=== PATIENT | female | born 1950 | race Caucasian/White ===

== ENCOUNTER 2018-11-26 14:00 | Outpatient (RCR) | payer MEDICARE, OTHER ==
[~2018-11-26 14:00] MED LIST: ACTIGALL300 MG PO; ACTONEL5 MG PO; ALDACTONE50 MG PO; AMLODIPINE BESY10 MG PO; CALCIO DEL MAR500 MG PO; CALCIUM + VITA1 EACH PO; CALCIUM500 MG PO; CARAFATE1 GM PO; DEXILANT60 MG PO; FERROUS SULFAT325 M1 PO; HYDROCORTISONE10 MG PO; KRISTALOSE10 GM PO; LEVOTHYROX200 MCG/VI PO; LEVOTHYROXINE125 MCG PO; LOVAZA1 GM PO; LUNESTA3 MG PO; NEURONTIN300 MG PO; PANTOPRAZOLE SO40 MG PO; POTASSIUM CHLO10 ME1 PO; PREDNISONE2.5 MG PO; PROAIR HFA INH8.5 GM; PROGRAF1 MG PO; PROPRANOLOL HCL10 MG PO; PROPRANOLOL HCL20 MG PO; TORSEMIDE10 MG PO; ULTRAM50 MG PO; URSODIOL300 MG PO; VITAMIN D2; XIFAXAN550 MG PO
== END 2018-11-28 ==
LOC: PT 14:00
PROVIDERS: ATTEND Orthopaedic Surgery
DX: M25.511 Pain in right shoulder (principal); M25.611 Stiffness of right shoulder, not elsewhere classified; M54.2 Cervicalgia; M62.81 Muscle weakness (generalized)

== ENCOUNTER 2018-12-08 14:00 | Outpatient (RCR) | payer MEDICARE, OTHER | END 2018-12-28 | LOC: PT 14:00 | PROVIDERS: ATTEND Orthopaedic Surgery | DX: M25.511 Pain in right shoulder (principal); M25.611 Stiffness of right shoulder, not elsewhere classified; M54.2 Cervicalgia; M62.81 Muscle weakness (generalized) ==

== ENCOUNTER 2019-02-27 09:50 | Outpatient (RCR) | payer MEDICARE, OTHER | END 2019-02-28 | LOC: PT 09:50 | PROVIDERS: ATTEND Orthopaedic Surgery | DX: S43.431A Superior glenoid labrum lesion of right shoulder, initial encounter (principal); M75.111 Incomplete rotator cuff tear or rupture of right shoulder, not specified as traumatic; M62.81 Muscle weakness (generalized); M25.511 Pain in right shoulder; M25.611 Stiffness of right shoulder, not elsewhere classified ==

== ENCOUNTER 2019-03-27 09:58 | Outpatient (RCR) | payer MEDICARE, OTHER | END 2019-03-30 | LOC: PT 09:58 | PROVIDERS: ATTEND Orthopaedic Surgery | DX: M25.511 Pain in right shoulder (principal); M25.611 Stiffness of right shoulder, not elsewhere classified; M62.81 Muscle weakness (generalized); M75.111 Incomplete rotator cuff tear or rupture of right shoulder, not specified as traumatic; S43.431A Superior glenoid labrum lesion of right shoulder, initial encounter | CPT/HCPCS: 97139 ==

== ENCOUNTER 2019-04-02 10:00 | Outpatient (RCR) | payer MEDICARE, OTHER | END 2019-04-30 | LOC: PT 10:00 | PROVIDERS: ATTEND Orthopaedic Surgery | DX: S43.431A Superior glenoid labrum lesion of right shoulder, initial encounter (principal); M62.81 Muscle weakness (generalized); M25.511 Pain in right shoulder; M25.611 Stiffness of right shoulder, not elsewhere classified ==

== ENCOUNTER 2019-04-03 08:32 | Emergency (ER) | payer MEDICARE, OTHER ==
[~2019-04-03] VITALS: Ht 165.1 cm; Wt 72.6 kg
--- OUTSIDE RECORDS SUMMARY | 2019-04-03 08:40 | XMS REPORT ---
Author Author [facility] Address Unknown Phone Unavailable Care Team Providers Care Property Clerk Name Role Phone DEBORAH TRAVIS Unavailable Unavailable EMELI HILL Unavailable Unavailable AMARATUNGE, CHAMINDIKA HARSHINIE Unavailable Unavailable JIMMELY JAROCHO Unavailable Unavailable JALAL, MCCALLUM PRASUN Unavailable Unavailable MIKAEL, ARIF Unavailable Unavailable JOHN FRANKLIN Unavailable Unavailable DILON RUEDA Unavailable Unavailable DEMETRIO GOLDSMITH Unavailable Unavailable MARYELLEN GODFREY Unavailable Unavailable FRANNIE GAN Unavailable Unavailable CROW SNOW Unavailable Unavailable Payers Payer Name Policy Type Policy Number Effective Date Expiration Date Problems This patient has no known problems. Allergies, Adverse Reactions, Alerts Allergy Name Allergy Type Status Severity Reaction(s) Onset Date Inactive Date Treating Clinician Comments codeine DA Active U 2019-02-06 00:00:00 aspirin DA Active SV 2019-02-06 00:00:00 codeine DA Active U 2012-05-27 00:00:00 aspirin DA Active SV 2012-05-27 00:00:00 Medications This patient has no known medications. Results Test Description Test Time Test Comments Text Results Atomic Results Result Comments - XR CHEST 2 V 2019-02-06 07:50:00 FAX: Berenice Mccall [phone] [place]ora: St: REG FAX: Roxi Rivas [phone] FAX: Kimberly Bynum Name: KERI [facility] [place] : 1950 Age/S: 68/F [address] [place] [address] Unit #: [id number] Loc: [place] [address] Phys: Kimberly Bynum NP Acct: [id number] Dis Date: Status: [place] [facility] [place] [facility] [place]ONE #: [phone] Exam Date: 02/06/2019733 FAX #: [phone] Reason: PRE-OP SHOULDER ARTHROSCOPY EXAMS: CPT CODE: [id number] XR CHEST 2 V 17480 CHEST RADIOGRAPHS - PA AND LATERAL: COMPARISON: May 27, 2012 CLINICAL HISTORY: PRE-OP SHOULDER ARTHROSCOPY The cardiopericardial silhouette is within normal limits. No acute infiltrates are seen. Calcified granuloma noted in the left midlung. There is a probable small retrocardiac hiatal hernia. No vascular congestion or pneumothorax. IMPRESSION: No acute pulmonary abnormality. Suspect small hiatal hernia. at 0750 Reported and signed by: Trip Pete M.D. CC: Berenice Diaz MD; Roxi Frazier; Kimberly Bynum NP Technologist: RT Roshni(R) Trnscrd Date/Time/By: 02/06/2019 (0750) : By: [email or web address] Orig Print D/T: S: 02/06/2019 (0753) PAGE 1 Signed Report BASIC METABOLIC PANEL 2019-02-06 07:48:00 SODIUM (test code=NA) 139 mEq/L 134-147 POTASSIUM (test code=K) 4.2 mEq/L 3.4-5.0 CHLORIDE (test code=CL) 106 mEq/L 100-108 CARBON DIOXIDE (test code=CO2) 25 mEq/L 21-33 ANION GAP (test code=GAP) 12 0-20 GLUCOSE (test code=GLU) 96 mg/dL 70-110 BLOOD UREA NITROGEN (test code=BUN) 29 mg/dL 7-18 GLOMERULAR FILTRATION RATE (test code=GFR) 34.3 70-80 Units of measure=ml/min/1.73 m2 CREATININE (test code=CREAT) 1.5 mg/dL 0.6-1.3 CALCIUM (test code=CA) 9.2 mg/dL 8.0-10.5 CBC W/AUTO [id number] 07:33:00* Test Item Value Reference Range Comments WHITE BLOOD CELL (test code=WBC) 5.23 x10 3/uL 4.5-11.0 RED BLOOD CELL (test code=RBC) 4.27 x10 6/uL 3.54-5.02 HEMOGLOBIN (test code=HGB) 13.1 g/dL 11.0-15.0 HEMATOCRIT (test code=HCT) 39.6 % 33.0-45.0 MEAN CELL VOLUME (test code=MCV) 92.7 fL 81.0-99.0 MEAN CELL HGB (test code=MCH) 30.7 pg 27.0-33.0 MEAN CELL HGB CONCETRATION (test code=MCHC) 33.1 g/dL 33.0-37.0 RED CELL DISTRIBUTION WIDTH CV (test code=RDW) 12.8 % 11.5-14.5 RED CELL DISTRIBUTION WIDTH SD (test code=RDW-SD) 43.2 fL 37.0-54.0 PLATELET COUNT (test code=PLT) 162 x10 3/uL 150-400 MEAN PLATELET VOLUME (test code=MPV) 10.2 fL 7.0-9.0 NEUTROPHIL % (test code=NT%) 59.4 % 56.0-77.0 IMMATURE GRANULOCYTE % (test code=IG%) 0.4 % 0.0-2.0 LYMPHOCYTE % (test code=LY%) 15.5 % 14.0-32.0 MONOCYTE % (test code=MO%) 11.5 % 4.8-9.0 EOSINOPHIL % (test code=EO%) 12.2 % 0.3-3.7 BASOPHIL % (test code=BA%) 1.0 % 0.0-2.0 NUCLEATED RBC % (test code=NRBC%) 0.0 % 0-0 NEUTROPHIL # (test code=NT#) 3.11 x10 3/uL 2.0-7.6 IMMATURE GRANULOCYTE # (test code=IG#) 0.02 x10 3/uL 0.00-0.03 LYMPHOCYTE # (test code=LY#) 0.81 x10 3/uL 1.0-3.8 MONOCYTE # (test code=MO#) 0.60 x10 3/uL 0.1-0.8 EOSINOPHIL # (test code=EO#) 0.64 x10 3/uL 0.0-0.2 BASOPHIL # (test code=BA#) 0.05 x10 3/uL 0.0-0.2 NUCLEATED RBC # (test code=NRBC#) 0.00 x10 3/uL 0.0-0.1 MANUAL DIFF REQUIRED (test code=MDIFF) NO U/S, ABDOMINAL, WITH [id number] 16:15:00Doppler Study to evaluate Hepatic vesselsDoppler study to evaluate hepatic vessels; HCC surveillanceReason for Exam:->post OLT; evaluate hepatic vessels ;HCC surveillanceFINAL REPORT TECHNIQUE: Grayscale ultrasound of the abdomen with color Doppler and spectral Doppler ultrasound of the portal/hepatic vasculature. INDICATION: 68-year-old woman status post liver transplant. COMPARISON: Abdomen and pelvis CT 06/01/2018, abdomen ultrasound 11/09/2017. FINDINGS: LIVER: Prior orthotopic liver transplantation. The liver is normal in size and echogenicity with smooth contour. No focal liver lesions. HEPATIC VASCULATURE: Main portal vein measures 1 cm in diameter. Portal veins are patent with normal waveform and directionality. Flow velocity in the main portal vein is within normal limits. The proper and left hepatic arteries are patent with normal flow velocities, resistive indices, and waveforms. The right hepatic artery is not clearly visu alized. The hepatic veins and confluence are patent. BILIARY:Gallbladder: Prior cholecystectomy.Common bile duct measures 0.4 cm, within normal limits. No intra hepatic biliary ductal dilatation. PANCREAS: The pancreas is not clearly visuali zed due to overlying bowel gas. SPLEEN: No splenomegaly. PERITONEUM: No free flu id. KIDNEYS: The right kidney measures 8.4 cm in length. The left kidney measure s approximately 7.6 cm in length. No hydronephrosis. Extrarenal pelvis on the ri ght. No sonographically evident solid mass lesion. MIDLINE VASCULATURE: The visu alized inferior vena cava is patent. The maximum visualized aortic diameter is 0 .1 cm. Splenic artery and vein are patent. IMPRESSION:Unremarkable appearance of the transplant liver. The right hepatic artery is not clearly visualized. Oth erwise, unremarkable Doppler evaluation. Signed: Kenny Layort Verifi ed Date/Time: 01/05/2019 16:15:39 Reading Location: [address] Radiology [place] Room 04 :15 PM RAD, CHEST, 2 [id number] 13:33:00PA and Lateral for Liver TransplantReason for Exam:->Annual post OLT; HCC surveillanceFINAL REPORT TECHNIQUE: Frontal and lateral views of the chest. INDICATION: 68-year-old woman with hepatocellular carcinoma status post liver transplant. COMPARISON: Chest radiographs 06/01/2018 and 09/16/2017. FINDINGS: LINES/TUBES: None. LUNGS: New hazy airspace opacities in the right mid and lower lung zones. Unchanged subcentimeter calcified granuloma in the left lower lobe. PLEURA: No pleural effusion or pneumothorax. HEART AND MEDIASTINUM: The card iomediastinal silhouette is within normal limits. SOFT TISSUES AND BONES: Degene rative changes of the visualized spine. Unchanged clip in the medial left upper quadrant. IMPRESSION:New airspace opacities in the right mid and lower lung zon es may represent pneumonia. RECOMMENDATION:Follow-up chest radiographs may be ob tained in 6-8 weeks to reassess the above findings. Signed: Kenny Lay port Verified Date/Time: 01/05/2019 13:33:13 Reading Location: [address] Ra diology Reading Room Electronically signed by: KENNY LAY MD on 01:33 PM TACROLIMUS [id number] 12:07:00* Test Item Value Reference Range Comments TACROLIMUS BLOOD (Flubit LimitedAKER) (test dnnt=026) 3.2 ng/mL 10.0-20.0 HEPATITIS C [id number] 09:39:00* Test Item Value Reference Range Comments HEPATITIS C ANTIBODY (BEAKER) (test obrv=833) Nonreactive Nonreactive [id number] 09:18:00* Test Item Value Reference Range Comments PHOSPHORUS (BEAKER) (test brqf=676) 4.1 mg/dL 2.3-4.7 [id number] 09:18:00* Test Item Value Reference Range Comments MAGNESIUM (BEAKER) (test aarv=748) 1.9 mg/dL 1.6-2.6 COMPREHENSIVE METABOLIC [id number] 09:18:00* Test Item Value Reference Range Comments TOTAL PROTEIN (BEAKER) (test ppaj=812) 7.2 gm/dL 6.0-8.3 ALBUMIN (BEAKER) (test jdvg=3872) 4.2 g/dL 3.5-5.0 ALKALINE PHOSPHATASE (BEAKER) (test irdt=244) 104 U/L 40-150 BILIRUBIN TOTAL (BEAKER) (test feme=945) 0.8 mg/dL 0.2-1.2 SODIUM (BEAKER) (test ymdm=932) 139 meq/L 136-145 POTASSIUM (BEAKER) (test lmtc=734) 4.3 meq/L 3.5-5.1 CHLORIDE (BEAKER) (test dscf=023) 103 meq/L 98-107 CO2 (BEAKER) (test uztx=616) 26 meq/L 22-29 BLOOD UREA NITROGEN (BEAKER) (test btxu=778) 23 mg/dL 7-21 CREATININE (BEAKER) (test wkau=707) 1.49 mg/dL 0.57-1.25 GLUCOSE RANDOM (BEAKER) (test ohxr=960) 96 mg/dL 70-105 CALCIUM (BEAKER) (test zyyq=609) 9.7 mg/dL 8.4-10.2 AST (SGOT) (BEAKER) (test czbx=809) 16 U/L 5-34 ALT (SGPT) (BEAKER) (test ybsl=606) 14 U/L 6-55 EGFR (BEAKER) (test zndv=2602) 35 mL/min/1.73 sq m ESTIMATED GFR IS NOT ACCURATE CREATININE CLEARANCE IN PREDICTING GLOMERULAR FILTRATION RATE. ESTIMATED GFR IS NOT APPLICABLE FOR DIALYSIS PATIENTS. LIPID [id number] 09:18:00* Test Item Value Reference Range Comments TRIGLYCERIDES (BEAKER) (test bgpf=824) 94 mg/dL CHOLESTEROL (BEAKER) (test poaz=722) 176 mg/dL HDL CHOLESTEROL (BEAKER) (test myjq=940) 53 mg/dL LDL CHOLESTEROL CALCULATED (BEAKER) (test voed=127) 104 mg/dL Triglyceride Reference Range: Low Risk <150 Borderline 150-199 High Risk 200-499 Very High Risk >=500Cholesterol Reference Range: Low Risk <200 Borderline 200-239 High Risk >240HDL Cholesterol Reference Range: Low Risk >=60 High Risk <40LDL Cholesterol Reference Range: Optimal <100 Near Optimal 100-129 Borderline 130-159 High 160-189 Very High >=190 BILIRUBIN, [id number] 09:18:00* Test Item Value Reference Range Comments BILIRUBIN DIRECT (BEAKER) (test rhcq=783) 0.3 mg/dL 0.1-0.5 CBC W/PLT COUNT & AUTO [id number] 08:40:00* Test Item Value Reference Range Comments WHITE BLOOD CELL COUNT (BEAKER) (test dczj=538) 4.0 K/ L 3.5-10.5 RED BLOOD CELL COUNT (BEAKER) (test qint=008) 4.11 M/ L 3.93-5.22 HEMOGLOBIN (BEAKER) (test hmto=685) 12.4 GM/DL 11.2-15.7 HEMATOCRIT (BEAKER) (test gpbi=678) 38.5 % 34.1-44.9 MEAN CORPUSCULAR VOLUME (BEAKER) (test uuep=914) 93.7 fL 79.4-94.8 MEAN CORPUSCULAR HEMOGLOBIN (BEAKER) (test zyne=930) 30.2 pg 25.6-32.2 MEAN CORPUSCULAR HEMOGLOBIN CONC (BEAKER) (test beqz=703) 32.2 GM/DL 32.2-35.5 RED CELL DISTRIBUTION WIDTH (BEAKER) (test caki=766) 14.5 % 11.7-14.4 PLATELET COUNT (BEAKER) (test eweo=801) 133 K/CU MM 150-450 MEAN PLATELET VOLUME (BEAKER) (test vwuk=254) 11.0 fL 9.4-12.3 NUCLEATED RED BLOOD CELLS (BEAKER) (test ceqs=872) 0 /100 WBC 0-0 NEUTROPHILS RELATIVE PERCENT (BEAKER) (test qgnw=670) 61 % LYMPHOCYTES RELATIVE PERCENT (BEAKER) (test dpvr=901) 15 % MONOCYTES RELATIVE PERCENT (BEAKER) (test twas=342) 13 % EOSINOPHILS RELATIVE PERCENT (BEAKER) (test lxau=124) 9 % BASOPHILS RELATIVE PERCENT (BEAKER) (test icuf=609) 1 % NEUTROPHILS ABSOLUTE COUNT (BEAKER) (test euvw=358) 2.47 K/ L 1.56-6.13 LYMPHOCYTES ABSOLUTE COUNT (BEAKER) (test kvbr=150) 0.61 K/ L 1.18-3.74 MONOCYTES ABSOLUTE COUNT (BEAKER) (test cqmc=463) 0.54 K/ L 0.24-0.36 EOSINOPHILS ABSOLUTE COUNT (BEAKER) (test eeoo=734) 0.34 K/ L 0.04-0.36 BASOPHILS ABSOLUTE COUNT (BEAKER) (test nnyu=697) 0.04 K/ L 0.01-0.08 IMMATURE GRANULOCYTES-RELATIVE PERCENT (BEAKER) (test bqjf=3935) 1 % 0-1 CT, [id number] 17:29:00Reason for exam:->abdominal painWhat is the patient's sedation requirement?->No SedationFINAL REPORT TECHNIQUE: CT of the abdomen and pelvis WITHOUT intravenous contrast and WITHOUT oral contrast. Dose modulation, iterative reconstruction, and/or weight-based adjustment of the mA/kV was utilized to reduce the radiation dose to as low as reasonably achievable. INDICATION: 67-year-old woman with abdominal pain. COMPARISON: Abdomen and pelvis CT 03/04/2018 and 12/04/2017. FINDINGS: ABSENCE OF INTRAVENOUS CONTRAST DECREASES SENSITIVITY FOR DETECTION OF FOCAL LESIONS AND VASCULAR PATHOLOGY. LOWER THORAX: Trace left pleural effusion with adjacent mild consolidative opacity in the left lung base. Atherosclerotic coronary artery calcifications. HEPATOBILIARY: Prior orthotopic liver transplantation and cholecystectomy. No significant change in the hypodensity in the hepatic dome which extends into segment IV. No biliary ductal dilatation.SPLEEN: No splenomegaly.PANCREAS: No focal masses or ductal dilatation. Unchanged sub centimeter calcification in the pancreatic head. ADRENALS: No adrenal nodules.KI DNEYS/URETERS: No hydronephrosis, stones, or solid mass lesions.PELVIC ORGANS/BL ADDER: Bladder is unremarkable. Prior hysterectomy. No adnexal mass. PERITONEUM/ RETROPERITONEUM: No free air or fluid.LYMPH NODES: No lymphadenopathy.VESSELS: A therosclerotic vascular calcifications in the abdominal aorta and bilateral jasbir c arteries without aneurysm. The inferior vena cava is flattened, particularly t he infrarenal segment. GI TRACT: No distention or wall thickening. Few scattered colonic diverticula. Unchanged small hiatal hernia. Unchanged clip in the stoma ch. BONES AND SOFT TISSUES: Degenerative changes of the visualized spine. Unchan ged mesh along the anterior abdominal wall. IMPRESSION:No acute abnormalities i n the abdomen or pelvis. Flattened inferior vena cava, suggestive of low intrava scular volume status. Unchanged hypodensity in the hepatic dome and left lobe. T race left pleural effusion. Adjacent mild consolidative opacity in the left lung base likely represents atelectasis, however superimposed pneumonia cannot be ex cluded. Signed: Kenny Lay MDReport Verified Date/Time: 06/01/2018 17:29:1 0 Reading Location: [facility] B1 C013Y CT Body Reading Room LINE PHOSPHATASE 2018-06-01 15:29:00* Test Item Value Reference Range Comments ALKALINE PHOSPHATASE (BEAKER) (test zwki=495) 94 U/L 40-150 BILIRUBIN, ADULT [id number] 15:29:00* Test Item Value Reference Range Comments BILIRUBIN TOTAL (BEAKER) (test wyrx=978) 0.7 mg/dL 0.2-1.2 ALT (SGPT)2018-06-01 15:29:00* Test Item Value Reference Range Comments ALT (SGPT) (BEAKER) (test xayq=481) 13 U/L 6-55 AST (SGOT)2018-06-01 15:29:00* Test Item Value Reference Range Comments AST (SGOT) (BEAKER) (test dxcq=648) 18 U/L 5-34 BASIC METABOLIC [id number] 15:29:00* Test Item Value Reference Range Comments SODIUM (BEAKER) (test sing=638) 135 meq/L 136-145 POTASSIUM (BEAKER) (test rett=746) 4.3 meq/L 3.5-5.1 CHLORIDE (BEAKER) (test mapa=657) 107 meq/L 98-107 CO2 (BEAKER) (test hwlw=329) 21 meq/L 22-29 BLOOD UREA NITROGEN (BEAKER) (test lcza=496) 26 mg/dL 7-21 CREATININE (BEAKER) (test lptu=073) 1.25 mg/dL 0.57-1.25 GLUCOSE RANDOM (BEAKER) (test nnlb=545) 101 mg/dL 70-105 CALCIUM (BEAKER) (test babu=322) 9.1 mg/dL 8.4-10.2 EGFR (BEAKER) (test xsbo=5850) 42 mL/min/1.73 sq m ESTIMATED GFR IS NOT ACCURATE CREATININE CLEARANCE IN PREDICTING GLOMERULAR FILTRATION RATE. ESTIMATED GFR IS NOT APPLICABLE FOR DIALYSIS PATIENTS. CBC W/PLT COUNT & AUTO [id number] 14:59:00* Test Item Value Reference Range Comments WHITE BLOOD CELL COUNT (BEAKER) (test xthu=085) 10.6 K/ L 3.5-10.5 RED BLOOD CELL COUNT (BEAKER) (test avbt=896) 4.01 M/ L 3.93-5.22 HEMOGLOBIN (BEAKER) (test nzkf=871) 12.3 GM/DL 11.2-15.7 HEMATOCRIT (BEAKER) (test uifu=685) 37.6 % 34.1-44.9 MEAN CORPUSCULAR VOLUME (BEAKER) (test nvkz=788) 93.8 fL 79.4-94.8 MEAN CORPUSCULAR HEMOGLOBIN (BEAKER) (test zixt=239) 30.7 pg 25.6-32.2 MEAN CORPUSCULAR HEMOGLOBIN CONC (BEAKER) (test nwva=921) 32.7 GM/DL 32.2-35.5 RED CELL DISTRIBUTION WIDTH (BEAKER) (test uzjx=633) 13.6 % 11.7-14.4 PLATELET COUNT (BEAKER) (test tzcx=798) 121 K/CU MM 150-450 MEAN PLATELET VOLUME (BEAKER) (test lemy=076) 11.9 fL 9.4-12.3 NUCLEATED RED BLOOD CELLS (BEAKER) (test fghn=607) 0 /100 WBC 0-0 NEUTROPHILS RELATIVE PERCENT (BEAKER) (test gqqd=875) 82 % LYMPHOCYTES RELATIVE PERCENT (BEAKER) (test usss=929) 7 % MONOCYTES RELATIVE PERCENT (BEAKER) (test plnh=523) 8 % EOSINOPHILS RELATIVE PERCENT (BEAKER) (test ydzo=872) 1 % BASOPHILS RELATIVE PERCENT (BEAKER) (test qiji=374) 1 % NEUTROPHILS ABSOLUTE COUNT (BEAKER) (test ddlt=180) 8.69 K/ L 1.56-6.13 LYMPHOCYTES ABSOLUTE COUNT (BEAKER) (test geap=022) 0.75 K/ L 1.18-3.74 MONOCYTES ABSOLUTE COUNT (BEAKER) (test lpyl=843) 0.80 K/ L 0.24-0.36 EOSINOPHILS ABSOLUTE COUNT (BEAKER) (test ubym=413) 0.09 K/ L 0.04-0.36 BASOPHILS ABSOLUTE COUNT (BEAKER) (test zpuy=841) 0.05 K/ L 0.01-0.08 IMMATURE GRANULOCYTES-RELATIVE PERCENT (BEAKER) (test lhxn=0621) 2 % 0-1 RAD, CHEST, 1 VIEW, NON [id number] 14:10:00Reason for exam:->CHEST PAINShould this be performed at the bedside?->YesFINAL REPORT Chest, AP view. History: Chest pain. Comparison: 11/07/2017. Discussion: The cardiomediastinal silhouette and pulmonary vasculature are within normal limits. The lungs are clear without evidence of consolidation or effusion. There are no acute osseous abnormalities. The soft tissues are unremarkable. IMPRESSION: No acute cardiopulmonary abnormality. Signed: Luan Coulter MDReport Verified Date/Time: 06/01/2018 14:10:00 Reading Location: [address] Ortho Consult Reading Room , [id number] 14:20:00FINAL REPORT INDICATION:67-year-old female with upper abdominal pain and history of liver transplant. COMPARISON: December 04, 2017March 2017Sept2015 TECHNIQUE: CT of the Abdomen and Pelvis WITHOUT and WITH intravenous contrast. Enteric contrast was used. The exam was performed according to our department dose-optimization protocol, which includes automated exposure control, adjustments of mA and kV according to patient size. Iterative reconstr uctions are also sometimes employed. FINDINGS:Again demonstrated is a liver coy splant with focal narrowing of the main portal vein or portal vein anastomosis s imilar to that demonstrated in March 2016. Filling defect in the central sup erior mesenteric vein likely represents flow artifact rather than thrombus. No b iliary ductal dilatation is demonstrated. Patient is status post ventral hernia repair with mesh. No recurrent ventral hernia demonstrated. Moderate hiatal meghana ia noted. No bowel obstruction or bowel infection is demonstrated. No peritoneal free fluid. Spleen, pancreas, adrenal glands, kidneys, bladder unremarkable. Pa tient is status post hysterectomy. There is moderate calcified atherosclerotic p laque of the abdominal aorta and iliac arteries. Severe facet arthropathy at L5 -S1 and mild compression deformity of L4 noted. No suspicious osseous lesion and no acute compression fracture demonstrated. IMPRESSION: Liver transplant with f ocal narrowing of the main portal vein were portal vein anastomosis, similar to that in March 2016. Prior ventral hernia repair with mesh. Moderate hiatal h ernia. Signed: Adria Turner MDReport Verified Date/Time: 03/04/2018 14:20:2 3 Reading Location: [facility] C013Y CT Body Reading Room -[id number] 11:50:00* Test Item Value Reference Range Comments POC-CREATININE (AVELINA) (test axth=3023) 1.2 mg/dL 0.6-1.3 [address]ED AT [address] [address] POC-EGFR (AVELINA) (test ezpt=3531) 45 mL/min/1.73M2 CT, [id number] 19:04:00FINAL REPORT CT, ABDOMEN \\T\\ PELVIS, WITHOUT IV CONTRAST INDICATION: s/p liver transplant now with increased abd pain COMPARISON: September 20, 2017 TECHNIQUE: CT of the abdomen and pelvis WITHOUT intravenous contrast. DOSE REDUCTION: Dose modulation, iterative reconstruction, and/or weight-based adjustment of the mA/kV was utilized to reduce the radiation dose to as low as reasonably achievable. FINDINGS:NOTE: Absence of intravenous contrast decreases sensitivity for focal lesions and vascular pathology. Pleural thickening noted in the left lower lobe, unchanged from prior. Questionable basilar consolidation and bronchiectatic changes adjacent to this findings. Cardiac size is normal. No pleural or pericardial effusion. Stable sliding hiatal hernia. Focus of low attenuation in the left liver lobe is less conspicuous in its height dilation central portal region, of indeterminate etiology. A calcified granuloma is again noted in the left liver lobe. The gallbladder is surgically absent. There is unremarkable noncontrast appearance of the pancreas, adrenal glands and kidneys. Pelviectasis is present on the right. No obstructing stone is noted. Unremarkable urinary bladder. Prior hysterectomy. Small bowel calibers are within normal limits. There is a moderate stool burden in the colon. Distal left changes are evident without focal inflammatory signs to suggest development of active colitis. The appendix is not identified. Vascular calcifications noted throughout the arterial tree, unchanged from prior. No ascites or adenopathy is present. Mesh hernia repair in the anterior abdominal wall is stable. Review of osseous structures reveals generalized mineralization without worrisome or aggressive lesion. Endplate def ormity at L4 is stable. IMPRESSION: Limited noncontrast evaluation demonstrate s decreasing conspicuity of parenchymal abnormality liver. This may reflect fatt y infiltration and is not optimally characterized with MRI. Hyperattenuating mat erial near the region is nonspecific and may reflect surgical changes or thrombu s in the central portal system. Further evaluation with vascular sonography is r ecommended. No bowel obstruction. Signed: JR Kirk Robert MDReport Veri lashon Date/Time: 12/04/2017 19:04:55 Reading Location: [address] Room 07 :04 PM [id number] 17:29:00* Test Item Value Reference Range Comments LIPASE (BEAKER) (test vwtk=570) 68 U/L 8-78 HEPATIC FUNCTION [id number] 17:29:00* Test Item Value Reference Range Comments TOTAL PROTEIN (BEAKER) (test nsdq=452) 6.8 gm/dL 6.0-8.3 ALBUMIN (BEAKER) (test kgvo=8735) 3.9 g/dL 3.5-5.0 BILIRUBIN TOTAL (BEAKER) (test srur=605) 0.5 mg/dL 0.2-1.2 BILIRUBIN DIRECT (BEAKER) (test vlcg=101) 0.2 mg/dL 0.1-0.5 ALKALINE PHOSPHATASE (BEAKER) (test brwk=162) 114 U/L 40-150 AST (SGOT) (BEAKER) (test bwpt=281) 22 U/L 5-34 ALT (SGPT) (BEAKER) (test aiob=927) 17 U/L 6-55 BASIC METABOLIC [id number] 15:56:00* Test Item Value Reference Range Comments SODIUM (BEAKER) (test ktpr=324) 137 meq/L 136-145 POTASSIUM (BEAKER) (test pvvu=880) 4.2 meq/L 3.5-5.1 CHLORIDE (BEAKER) (test nccp=547) 108 meq/L 98-107 CO2 (BEAKER) (test gncr=758) 19 meq/L 22-29 BLOOD UREA NITROGEN (BEAKER) (test icdg=728) 24 mg/dL 7-21 CREATININE (BEAKER) (test bhts=378) 1.39 mg/dL 0.57-1.25 GLUCOSE RANDOM (BEAKER) (test ntqo=655) 117 mg/dL 70-105 CALCIUM (BEAKER) (test tsbb=431) 9.1 mg/dL 8.4-10.2 EGFR (BEAKER) (test hkcb=4400) 38 mL/min/1.73 sq m ESTIMATED GFR IS NOT ACCURATE CREATININE CLEARANCE IN PREDICTING GLOMERULAR FILTRATION RATE. ESTIMATED GFR IS NOT APPLICABLE FOR DIALYSIS PATIENTS. CBC W/PLT COUNT & AUTO [id number] 15:41:00* Test Item Value Reference Range Comments WHITE BLOOD CELL COUNT (BEAKER) (test dcir=530) 4.4 K/ L 3.5-10.5 RED BLOOD CELL COUNT (BEAKER) (test zjcj=573) 3.78 M/ L 3.93-5.22 HEMOGLOBIN (BEAKER) (test sjfi=075) 10.5 GM/DL 11.2-15.7 HEMATOCRIT (BEAKER) (test mzff=667) 33.7 % 34.1-44.9 MEAN CORPUSCULAR VOLUME (BEAKER) (test lmzb=251) 89.2 fL 79.4-94.8 MEAN CORPUSCULAR HEMOGLOBIN (BEAKER) (test asnj=241) 27.8 pg 25.6-32.2 MEAN CORPUSCULAR HEMOGLOBIN CONC (BEAKER) (test kxbu=544) 31.2 GM/DL 32.2-35.5 RED CELL DISTRIBUTION WIDTH (BEAKER) (test mpkq=453) 18.3 % 11.7-14.4 PLATELET COUNT (BEAKER) (test ouqn=238) 139 K/CU MM 150-450 MEAN PLATELET VOLUME (BEAKER) (test obzg=738) 11.8 fL 9.4-12.3 NUCLEATED RED BLOOD CELLS (BEAKER) (test mfhm=497) 0 /100 WBC 0-0 NEUTROPHILS RELATIVE PERCENT (BEAKER) (test gaya=179) 61 % LYMPHOCYTES RELATIVE PERCENT (BEAKER) (test baou=925) 15 % MONOCYTES RELATIVE PERCENT (BEAKER) (test vyjv=514) 13 % EOSINOPHILS RELATIVE PERCENT (BEAKER) (test bbzx=169) 10 % BASOPHILS RELATIVE PERCENT (BEAKER) (test jbsp=454) 1 % NEUTROPHILS ABSOLUTE COUNT (BEAKER) (test cign=094) 2.67 K/ L 1.56-6.13 LYMPHOCYTES ABSOLUTE COUNT (BEAKER) (test tjzo=038) 0.65 K/ L 1.18-3.74 MONOCYTES ABSOLUTE COUNT (BEAKER) (test fjvz=651) 0.57 K/ L 0.24-0.36 EOSINOPHILS ABSOLUTE COUNT (BEAKER) (test vupj=063) 0.43 K/ L 0.04-0.36 BASOPHILS ABSOLUTE COUNT (BEAKER) (test qeik=534) 0.03 K/ L 0.01-0.08 IMMATURE GRANULOCYTES-RELATIVE PERCENT (BEAKER) (test ofpn=1914) 0 % 0-1 U/S, ABDOMINAL, WITH [id number] 16:15:00Reason for exam:->elevated transaminasesAddendum BeginsREPORT STATUS:A Addendum: The findings section should include the following: The abdominal aorta was obscured by bowel gas. No abnormalities were visualized in the inferior vena cava or hepatic veins. Signed: Mario Sosa MDReport Verified Date/Time: 11/19/2017 16:15:40 Reading Location: [facility] Radiology Reading RoomAddendum EndsFINAL REPORT ULTRASOUND ABDOMEN COMPLETE, ULTRASOUND DUPLEX DOPPLER HISTORY: Increased liver function tests,, elevated transaminases, status post liver transplantation in 2014 COMPARISON: Ultrasound of 09/16/2017 TECHNIQUE: Real-time ultrasound of the abdomen was performed. Examination included spectral and color-flow Doppler evaluation of the liver and portal venous system. FINDINGS: The liver demonstrates a diffuse increase in echogenicity, unchanged. No mass lesions are identified. Hepatic length is 13.2 cm. Gallbladder is absent. Common bile duct is normal in caliber, measuring 5 mm. Importantly normal in diameter, measuring 9 mm. Spleen normal in size measuring 12.2 cm in length. The pancreas was suboptimally visualized due to interfering bowel gas. No ascites is present. No pleural effusions are seen. The kidneys are normal in size, contour, and echogenicity. The right kidney measures 8.8 cm in length and the left kidney measures 9.0 cm in length. Doppler evaluation demonstrated hepatopetal flow throughout the portal venous system. Peak systolic velocity in the main portal vein measured 46 cm/s. Resistive indices in the hepatic arteries were normal, ranging between 0.6 and 0.7. The hepatic veins are patent. IMPRESSION: 1. Patent portal venous system with normal flow direction. 2. Mild diffuse increase in hepatic echogenicity, similar to the prior study, which may reflect fatty infiltration. No hepatic mass lesion is visualized. Signed: Mario Sosa MDReport Verified Date/Time: 11/09/2017 17:07:53 Reading Location: [address] Reading Room VIRAL [id number] 15:42:00* Test Item Value Reference Range Comments EBV VIRAL LOAD - POSITIVE (BEAKER) (test vgul=0891) 2929 Copies/ML This assay was performed by real-time PCR for the detection of the Gerardo-Verma virus (EBV) gene EBNA-1. The test is composed of (1) DNA extraction from patien t specimen, and (2) real-time PCR amplification and detection with TMOC-9-pkozbl ic primers and probes. A well-conserved region of the EBNA-1 gene is targeted, a long with an internal control sequence used to confirm PCR amplification. Asympt omatic carriers and viral genetic variation, among other factors, can affect the accuracy of nucleic acid testing; therefore, results should be interpreted in l ight of clinical data.This test was developed and its performance characteristic s determined by the [facility] Pathology Department, Section of [facility] Pathology. It has not been cleared or approved by the U.S. Food and Patrick g Administration (FDA), since FDA approval is not required for clinical use of t he test. Validation was done as required by The Clinical Laboratory Improvement Amendments of 1988.TACROLIMUS [id number] 12:34:00* Test Item Value Reference Range Comments TACROLIMUS BLOOD (BEAKER) (test gawg=593) 4.9 ng/mL 10.0-20.0 COMPREHENSIVE METABOLIC [id number] 11:14:00* Test Item Value Reference Range Comments TOTAL PROTEIN (BEAKER) (test spvv=866) 7.4 gm/dL 6.0-8.3 ALBUMIN (BEAKER) (test jhln=7265) 4.1 g/dL 3.5-5.0 ALKALINE PHOSPHATASE (BEAKER) (test bcyt=593) 167 U/L 40-150 BILIRUBIN TOTAL (BEAKER) (test yixj=265) 0.4 mg/dL 0.2-1.2 SODIUM (BEAKER) (test xgge=201) 138 meq/L 136-145 POTASSIUM (BEAKER) (test cobw=936) 4.7 meq/L 3.5-5.1 CHLORIDE (BEAKER) (test jozs=700) 111 meq/L 98-107 CO2 (BEAKER) (test nqwh=680) 18 meq/L 22-29 BLOOD UREA NITROGEN (BEAKER) (test kdey=776) 34 mg/dL 7-21 CREATININE (BEAKER) (test jjrd=162) 1.62 mg/dL 0.57-1.25 GLUCOSE RANDOM (BEAKER) (test enzt=324) 92 mg/dL 70-105 CALCIUM (BEAKER) (test shzi=591) 9.7 mg/dL 8.4-10.2 AST (SGOT) (BEAKER) (test rblk=242) 16 U/L 5-34 ALT (SGPT) (BEAKER) (test dzui=172) 16 U/L 6-55 EGFR (BEAKER) (test gmkh=4745) 32 mL/min/1.73 sq m ESTIMATED GFR IS NOT ACCURATE CREATININE CLEARANCE IN PREDICTING GLOMERULAR FILTRATION RATE. ESTIMATED GFR IS NOT APPLICABLE FOR DIALYSIS PATIENTS. PROTHROMBIN TIME/[id number] 10:41:00* Test Item Value Reference Range Comments PROTIME (BEAKER) (test ffqf=752) 17.1 seconds 11.7-14.7 INR (BEAKER) (test fara=775) 1.4 <=5.9 RECOMMENDED COUMADIN/WARFARIN INR THERAPY RANGESSTANDARD DOSE: 2.0 - 3.0 Inclu eduar: PROPHYLAXIS for venous thrombosis, systemic embolization; TREATMENT for ania ous thrombosis and/or pulmonary embolus.HIGH RISK: Target INR is 2.5-3.5 for pat ients with mechanical heart valves.CBC W/PLT COUNT & AUTO [id number] 10:33:00* Test Item Value Reference Range Comments WHITE BLOOD CELL COUNT (BEAKER) (test zezi=677) 4.8 K/ L 3.5-10.5 RED BLOOD CELL COUNT (BEAKER) (test sdhw=929) 3.85 M/ L 3.93-5.22 HEMOGLOBIN (BEAKER) (test hhlq=742) 10.2 GM/DL 11.2-15.7 HEMATOCRIT (BEAKER) (test dnye=244) 33.7 % 34.1-44.9 MEAN CORPUSCULAR VOLUME (BEAKER) (test smpv=594) 87.5 fL 79.4-94.8 MEAN CORPUSCULAR HEMOGLOBIN (BEAKER) (test bdhk=282) 26.5 pg 25.6-32.2 MEAN CORPUSCULAR HEMOGLOBIN CONC (BEAKER) (test qgul=821) 30.3 GM/DL 32.2-35.5 RED CELL DISTRIBUTION WIDTH (BEAKER) (test oxmz=971) 17.3 % 11.7-14.4 PLATELET COUNT (BEAKER) (test wqfd=051) 213 K/CU MM 150-450 MEAN PLATELET VOLUME (BEAKER) (test fupa=770) 11.6 fL 9.4-12.3 NUCLEATED RED BLOOD CELLS (BEAKER) (test gqbp=716) 0 /100 WBC 0-0 NEUTROPHILS RELATIVE PERCENT (BEAKER) (test hfea=856) 63 % LYMPHOCYTES RELATIVE PERCENT (BEAKER) (test sxbc=700) 16 % MONOCYTES RELATIVE PERCENT (BEAKER) (test xecn=297) 13 % EOSINOPHILS RELATIVE PERCENT (BEAKER) (test hqob=564) 7 % BASOPHILS RELATIVE PERCENT (BEAKER) (test ujkk=146) 1 % NEUTROPHILS ABSOLUTE COUNT (BEAKER) (test bogk=959) 3.01 K/ L 1.56-6.13 LYMPHOCYTES ABSOLUTE COUNT (BEAKER) (test umrw=937) 0.74 K/ L 1.18-3.74 MONOCYTES ABSOLUTE COUNT (BEAKER) (test bupa=151) 0.60 K/ L 0.24-0.36 EOSINOPHILS ABSOLUTE COUNT (BEAKER) (test txuz=158) 0.33 K/ L 0.04-0.36 BASOPHILS ABSOLUTE COUNT (BEAKER) (test cqby=548) 0.05 K/ L 0.01-0.08 IMMATURE GRANULOCYTES-RELATIVE PERCENT (BEAKER) (test kovm=4835) 1 % 0-1 BLOOD [id number] 06:00:00* Test Item Value Reference Range Comments CULTURE (BEAKER) (test jzpo=3495) No growth in 5 days BLOOD [id number] 06:00:00* Test Item Value Reference Range Comments CULTURE (BEAKER) (test ndus=8689) No growth in 5 days CMV PCR, [id number] 16:32:00* Test Item Value Reference Range Comments CMV VIRAL LOAD - NEGATIVE (BEAKER) (test izqp=4334) Negative or below the linear range of the assay (<375 copies/mL) Cytomegalovirus (CMV) infection can cause significant disease in immunosuppresse d patients. However, it is common for CMV to manifest as a limited infection whi ch is of no clinical significance in immunosuppressed patients or in healthy ind ividuals.Viral load measurements are helpful to identify clinical CMV infection and to guide the pre-emptive management of antiviral therapy. For treatment of CMV infection due to reactivation in transplant recipients, a threshold between 4,000 and 5,000 copies/mL is suggested. For treatment of primary CMV infection, a lower threshold can be used.CMV infection may also be monitored using weekly serial measurements. Serial measurements of CMV DNA viral load can be evaluated by identifying a 10-fold change, as well as assessing the CMV DNA viral load and the clinical context for each patient.The plasma CMV DNA viral load was detected using quantitative polymerase chain reaction and fluorescent monitoring of a s pecific hybridized probe. Genetic variation and other factors can affect the acc uracy of nucleic acid testing. Therefore, the results should be interpreted in l ight of clinical data. A negative result may not exclude the presence of CMV dis ease.This test was developed and its performance characteristics determined by emma reaves [facility] Pathology Department, Section of Molecular Patholog y. It has not been cleared or approved by the U.S. Food and Drug Administration (FDA), since FDA approval is not required for clinical use of the test. Validati on was done as required by The Clinical Laboratory Improvement Amendments of 198 8.EBV VIRAL [id number] 16:06:00* Test Item Value Reference Range Comments EBV VIRAL LOAD - POSITIVE (AVELINA) (test mdeu=1366) 5492 Copies/ML This assay was performed by real-time PCR for the detection of the Gerardo-Verma virus (EBV) gene EBNA-1. The test is composed of (1) DNA extraction from patien t specimen, and (2) real-time PCR amplification and detection with JCRS-8-vmbwsh ic primers and probes. A well-conserved region of the EBNA-1 gene is targeted, a long with an internal control sequence used to confirm PCR amplification. Asympt omatic carriers and viral genetic variation, among other factors, can affect the accuracy of nucleic acid testing; therefore, results should be interpreted in l ight of clinical data.This test was developed and its performance characteristic s determined by the [facility] Pathology Department, Section of [facility] Pathology. It has not been cleared or approved by the U.S. Food and Patrick g Administration (FDA), since FDA approval is not required for clinical use of t he test. Validation was done as required by The Clinical Laboratory Improvement Amendments of 1988.PROTHROMBIN TIME/[id number] 11:45:00* Test Item Value Reference Range Comments PROTIME (AVELINA) (test tymy=757) 15.0 seconds 11.7-14.7 INR (AVELINA) (test dmqd=016) 1.2 <=5.9 RECOMMENDED COUMADIN/WARFARIN INR THERAPY RANGESSTANDARD DOSE: 2.0 - 3.0 Inclu eduar: PROPHYLAXIS for venous thrombosis, systemic embolization; TREATMENT for ania ous thrombosis and/or pulmonary embolus.HIGH RISK: Target INR is 2.5-3.5 for pat ients with mechanical heart valves.TACROLIMUS [id number] 09:56:00* Test Item Value Reference Range Comments TACROLIMUS BLOOD (AVELINA) (test lkco=711) 4.4 ng/mL 10.0-20.0 Draw blood 30 minutes before AM dose of [id number] 08:52:00* Test Item Value Reference Range Comments PARTIAL THROMBOPLASTIN TIME (AVELINA) (test ybki=965) 52.4 seconds 22.5-36.0 [id number] 07:24:00* Test Item Value Reference Range Comments PARTIAL THROMBOPLASTIN TIME (BEAKER) (test zyiy=712) 148.2 seconds 22.5-36.0 HEPATIC FUNCTION [id number] 06:46:00* Test Item Value Reference Range Comments TOTAL PROTEIN (BEAKER) (test ftes=751) 7.1 gm/dL 6.0-8.3 Specimen slightly hemolyzed ALBUMIN (BEAKER) (test wuuc=8076) 3.8 g/dL 3.5-5.0 Specimen slightly hemolyzed BILIRUBIN TOTAL (BEAKER) (test ouvj=885) 0.8 mg/dL 0.2-1.2 Specimen slightly hemolyzed BILIRUBIN DIRECT (BEAKER) (test dcjx=651) 0.3 mg/dL 0.1-0.5 Specimen slightly hemolyzed ALKALINE PHOSPHATASE (BEAKER) (test ssjt=148) 264 U/L 40-150 AST (SGOT) (BEAKER) (test noyj=733) 58 U/L 5-34 Specimen slightly hemolyzed ALT (SGPT) (BEAKER) (test fwsc=849) 53 U/L 6-55 Specimen slightly hemolyzed GAMMA GLUTAMYL TRANSFERASE (GGT)2017-11-11 06:37:00* Test Item Value Reference Range Comments GAMMA GLUTAMYL TRANSFERASE (BEAKER) (test fwle=350) 264 U/L 9-64 HEMOGLOBIN AND [id number] 06:10:00* Test Item Value Reference Range Comments HEMOGLOBIN (BEAKER) (test vlfo=705) 9.3 GM/DL 11.2-15.7 HEMATOCRIT (BEAKER) (test sqvp=942) 30.5 % 34.1-44.9 [id number] 00:48:00* Test Item Value Reference Range Comments PARTIAL THROMBOPLASTIN TIME (BEAKER) (test ecrs=784) 66.0 seconds 22.5-36.0 [id number] 18:56:00* Test Item Value Reference Range Comments PARTIAL THROMBOPLASTIN TIME (BEAKER) (test jnmp=733) 93.3 seconds 22.5-36.0 HEMOGLOBIN AND [id number] 18:47:00* Test Item Value Reference Range Comments HEMOGLOBIN (BEAKER) (test mwgk=350) 8.9 GM/DL 11.2-15.7 HEMATOCRIT (BEAKER) (test dvbu=883) 28.6 % 34.1-44.9 [id number] 12:33:00* Test Item Value Reference Range Comments PARTIAL THROMBOPLASTIN TIME (BEAKER) (test zrvk=984) 44.3 seconds 22.5-36.0 TACROLIMUS [id number] 10:24:00* Test Item Value Reference Range Comments TACROLIMUS BLOOD (BEAKER) (test jgfa=383) 5.0 ng/mL 10.0-20.0 Draw blood 30 minutes before AM dose of [id number] 06:56:00 * Test Item Value Reference Range Comments PHOSPHORUS (BEAKER) (test iqut=081) 3.7 mg/dL 2.3-4.7 [id number] 06:56:00* Test Item Value Reference Range Comments MAGNESIUM (BEAKER) (test cgvu=068) 1.7 mg/dL 1.6-2.6 BASIC METABOLIC [id number] 06:56:00* Test Item Value Reference Range Comments SODIUM (BEAKER) (test srrb=444) 134 meq/L 136-145 POTASSIUM (BEAKER) (test qmle=421) 5.1 meq/L 3.5-5.1 CHLORIDE (BEAKER) (test yqtc=857) 106 meq/L 98-107 CO2 (BEAKER) (test nhsj=424) 19 meq/L 22-29 BLOOD UREA NITROGEN (BEAKER) (test rwnq=725) 23 mg/dL 7-21 CREATININE (BEAKER) (test ymgi=286) 1.42 mg/dL 0.57-1.25 GLUCOSE RANDOM (BEAKER) (test xtgc=352) 80 mg/dL 70-105 CALCIUM (BEAKER) (test ggqq=673) 9.3 mg/dL 8.4-10.2 EGFR (BEAKER) (test wnvf=6135) 37 mL/min/1.73 sq m ESTIMATED GFR IS NOT ACCURATE CREATININE CLEARANCE IN PREDICTING GLOMERULAR FILTRATION RATE. ESTIMATED GFR IS NOT APPLICABLE FOR DIALYSIS PATIENTS. HEPATIC FUNCTION [id number] 06:56:00* Test Item Value Reference Range Comments TOTAL PROTEIN (BEAKER) (test unna=194) 6.8 gm/dL 6.0-8.3 ALBUMIN (BEAKER) (test hvqj=7334) 3.8 g/dL 3.5-5.0 BILIRUBIN TOTAL (BEAKER) (test zstp=624) 0.7 mg/dL 0.2-1.2 BILIRUBIN DIRECT (BEAKER) (test npgx=928) 0.3 mg/dL 0.1-0.5 ALKALINE PHOSPHATASE (BEAKER) (test lhrk=160) 216 U/L 40-150 AST (SGOT) (BEAKER) (test sahf=254) 61 U/L 5-34 ALT (SGPT) (BEAKER) (test oaqn=688) 55 U/L 6-55 [id number] 06:52:00* Test Item Value Reference Range Comments PARTIAL THROMBOPLASTIN TIME (BEAKER) (test octl=135) 65.5 seconds 22.5-36.0 PROTHROMBIN TIME/[id number] 06:51:00* Test Item Value Reference Range Comments PROTIME (BEAKER) (test glkh=125) 15.4 seconds 11.7-14.7 INR (BEAKER) (test ywhs=030) 1.2 <=5.9 RECOMMENDED COUMADIN/WARFARIN INR THERAPY RANGESSTANDARD DOSE: 2.0 - 3.0 Inclu eduar: PROPHYLAXIS for venous thrombosis, systemic embolization; TREATMENT for ania ous thrombosis and/or pulmonary embolus.HIGH RISK: Target INR is 2.5-3.5 for pat ients with mechanical heart valves.HEMOGLOBIN AND [id number] 06:33:00 * Test Item Value Reference Range Comments HEMOGLOBIN (BEAKER) (test pbew=384) 8.2 GM/DL 11.2-15.7 HEMATOCRIT (BEAKER) (test hcaf=100) 26.8 % 34.1-44.9 [id number] 22:29:00* Test Item Value Reference Range Comments PARTIAL THROMBOPLASTIN TIME (BEAKER) (test xxer=627) 69.1 seconds 22.5-36.0 CT, BRAIN, WITHOUT [id number] 21:28:00FINAL REPORT CLINICAL HISTORY: Trauma and pain COMPARISON: 09/13/2014 Multiple axial images of the brain were performed without IV contrast. This exam was performed according to our departmental dose-optimization program, which includes automated exposure control, adjustment of the mA and/or kV according to patient size and/or use of the iterative reconstruction technique. Intracranial hemorrhage: None. Brain parenchyma: Diffuse parenchymal volume loss. Scattered subcortical and periventricular non-specific white matter hypodensities suggestive of microangiopathy. Ventricles, sulci and basal cisterns: Normal for age. Extra-axial spaces: Normal. Midline shift: None. Visualized vasculature: Atherosclerotic calcifications. Cranium: No significant findings. Skullbase: No significant findings. Paranasal sinuses: No significant findings. IMPRESSION: No definite acute intracranial abnormality. There is no mass lesion, intracranial hemorrhage or CT evidence of acute stroke. Please note that CT is insensitive in the detection of acute ischemia. Signed: Ministerio Rosenthal Verified D ate/Time: 11/09/2017 21:28:12 Reading Location: [address] Reading Room GLOBIN AND [id number] 18:35:00* Test Item Value Reference Range Comments HEMOGLOBIN (BEAKER) (test qibe=644) 8.4 GM/DL 11.2-15.7 HEMATOCRIT (BEAKER) (test ysmw=245) 27.3 % 34.1-44.9 TACROLIMUS [id number] 15:16:00* Test Item Value Reference Range Comments TACROLIMUS BLOOD (BEAKER) (test gona=911) 5.2 ng/mL 10.0-20.0 [id number] 13:45:00* Test Item Value Reference Range Comments PARTIAL THROMBOPLASTIN TIME (BEAKER) (test glff=811) 93.9 seconds 22.5-36.0 RAD, SHOULDER, COMPLETE (MIN 2 VIEWS), [id number] 11:06:00Reason for exam:- >rt shoulder painFINAL REPORT INDICATION:Right shoulder pain. COMPARISON: None. TECHNIQUE: Right shoulder radiograph three views. FINDINGS / IMPRESSION:No fracture or malalignment is demonstrated. Moderate bony hypertrophy of the acromioclavicular joint is noted. Glenohumeral joint is unremarkable. Soft tissues unremarkable. Signed: Adria Turnerort Verified Date/Time: 11/09/2017 11:06:05 Reading Location: [facility] B1 [id number] Ortho Consult Reading Room [id number] 07:01:00* Test Item Value Reference Range Comments PHOSPHORUS (BEAKER) (test agxs=970) 4.1 mg/dL 2.3-4.7 [id number] 07:01:00* Test Item Value Reference Range Comments MAGNESIUM (BEAKER) (test kgtp=874) 1.8 mg/dL 1.6-2.6 BASIC METABOLIC [id number] 07:01:00* Test Item Value Reference Range Comments SODIUM (BEAKER) (test ypuv=051) 133 meq/L 136-145 POTASSIUM (BEAKER) (test grfr=141) 4.9 meq/L 3.5-5.1 CHLORIDE (BEAKER) (test yewq=602) 110 meq/L 98-107 CO2 (BEAKER) (test bftx=493) 17 meq/L 22-29 BLOOD UREA NITROGEN (BEAKER) (test vsww=463) 23 mg/dL 7-21 CREATININE (BEAKER) (test zhbm=396) 1.30 mg/dL 0.57-1.25 GLUCOSE RANDOM (BEAKER) (test miup=188) 81 mg/dL 70-105 CALCIUM (BEAKER) (test rrdo=762) 8.7 mg/dL 8.4-10.2 EGFR (BEAKER) (test jyxy=0766) 41 mL/min/1.73 sq m ESTIMATED GFR IS NOT ACCURATE CREATININE CLEARANCE IN PREDICTING GLOMERULAR FILTRATION RATE. ESTIMATED GFR IS NOT APPLICABLE FOR DIALYSIS PATIENTS. HEPATIC FUNCTION [id number] 07:01:00* Test Item Value Reference Range Comments TOTAL PROTEIN (BEAKER) (test zidz=123) 6.5 gm/dL 6.0-8.3 ALBUMIN (BEAKER) (test ciav=3320) 3.6 g/dL 3.5-5.0 BILIRUBIN TOTAL (BEAKER) (test vjtq=455) 0.7 mg/dL 0.2-1.2 BILIRUBIN DIRECT (BEAKER) (test rpqv=382) 0.3 mg/dL 0.1-0.5 ALKALINE PHOSPHATASE (BEAKER) (test iybe=593) 146 U/L 40-150 AST (SGOT) (BEAKER) (test yijp=553) 62 U/L 5-34 ALT (SGPT) (BEAKER) (test magx=480) 51 U/L 6-55 [id number] 06:58:00* Test Item Value Reference Range Comments PARTIAL THROMBOPLASTIN TIME (BEAKER) (test atpu=821) 107.9 seconds 22.5-36.0 PROTHROMBIN [id number] 06:47:00* Test Item Value Reference Range Comments PROTIME (BEAKER) (test dpzg=744) 17.3 seconds 11.7-14.7 INR (BEAKER) (test ovmh=882) 1.4 <=5.9 RECOMMENDED COUMADIN/WARFARIN INR THERAPY RANGESSTANDARD DOSE: 2.0 - 3.0 Inclu eduar: PROPHYLAXIS for venous thrombosis, systemic embolization; TREATMENT for ania ous thrombosis and/or pulmonary embolus.HIGH RISK: Target INR is 2.5-3.5 for pat ients with mechanical heart valves.HEMOGLOBIN AND [id number] 06:38:00 * Test Item Value Reference Range Comments HEMOGLOBIN (BEAKER) (test yyeo=730) 7.8 GM/DL 11.2-15.7 HEMATOCRIT (BEAKER) (test lnks=970) 24.8 % 34.1-44.9 POCT-GLUCOSE [id number] 21:22:00* Test Item Value Reference Range Comments POC-GLUCOSE METER (BEAKER) (test ubnr=2216) 108 mg/dL 70-110 TESTED AT [facility] [address] [address] [id number] 20:34:00* Test Item Value Reference Range Comments PARTIAL THROMBOPLASTIN TIME (BEAKER) (test fejn=694) 51.1 seconds 22.5-36.0 Prior to initiating heparinHEMOGLOBIN AND [id number] 20:26:00* Test Item Value Reference Range Comments HEMOGLOBIN (BEAKER) (test mjkp=305) 7.8 GM/DL 11.2-15.7 HEMATOCRIT (BEAKER) (test vuyo=021) 24.6 % 34.1-44.9 CBC (HEMOGRAM ONLY)2017-11-08 20:26:00* Test Item Value Reference Range Comments WHITE BLOOD CELL COUNT (BEAKER) (test pheb=448) 3.2 K/ L 3.5-10.5 RED BLOOD CELL COUNT (BEAKER) (test iamm=593) 2.90 M/ L 3.93-5.22 HEMOGLOBIN (BEAKER) (test mnbe=925) 7.8 GM/DL 11.2-15.7 HEMATOCRIT (BEAKER) (test kcvf=981) 24.6 % 34.1-44.9 MEAN CORPUSCULAR VOLUME (BEAKER) (test mvad=123) 84.8 fL 79.4-94.8 MEAN CORPUSCULAR HEMOGLOBIN (BEAKER) (test vtvb=530) 26.9 pg 25.6-32.2 MEAN CORPUSCULAR HEMOGLOBIN CONC (BEAKER) (test ccry=045) 31.7 GM/DL 32.2-35.5 RED CELL DISTRIBUTION WIDTH (BEAKER) (test jdtu=197) 15.6 % 11.7-14.4 PLATELET COUNT (BEAKER) (test ncgw=293) 154 K/CU MM 150-450 MEAN PLATELET VOLUME (BEAKER) (test pttj=143) 10.0 fL 9.4-12.3 NUCLEATED RED BLOOD CELLS (BEAKER) (test pqzy=845) 0 /100 WBC 0-0 [id number] 14:31:00* Test Item Value Reference Range Comments FERRITIN (BEAKER) (test chuv=700) 36 ng/mL 5-275 [id number] 14:17:00* Test Item Value Reference Range Comments TRANSFERRIN (BEAKER) (test nzme=088) 338 mg/dL 174-382 IRON, TIBC, % SAT. (WITHOUT FERRITIN)2017-11-08 14:17:00* Test Item Value Reference Range Comments IRON (BEAKER) (test wism=658) 31 ug/dL 40-160 TOTAL IRON BINDING CAPACITY (BEAKER) (test gkjq=064) 423 ug/dL 250-450 IRON % SATURATION (2) (BEAKER) (test umen=6817) 7 % 20-55 TACROLIMUS [id number] 12:28:00* Test Item Value Reference Range Comments TACROLIMUS BLOOD (BEAKER) (test hpoq=319) 3.1 ng/mL 10.0-20.0 POCT-GLUCOSE [id number] 09:25:00* Test Item Value Reference Range Comments POC-GLUCOSE METER (BEAKER) (test qrzw=2524) 97 mg/dL 70-110 TESTED AT [facility] [address] [address] VITAMIN B12 AND [id number] 07:12:00* Test Item Value Reference Range Comments VITAMIN B12 (BEAKER) (test pyhq=524) 257 pg/mL 213-816 FOLATE (BEAKER) (test wfpn=493) 10.3 ng/mL >=7.0 CBC W/PLT COUNT & AUTO [id number] 07:03:00* Test Item Value Reference Range Comments WHITE BLOOD CELL COUNT (BEAKER) (test kitf=647) 4.6 K/ L 3.5-10.5 RED BLOOD CELL COUNT (BEAKER) (test dspp=826) 2.81 M/ L 3.93-5.22 HEMOGLOBIN (BEAKER) (test frdx=397) 7.4 GM/DL 11.2-15.7 HEMATOCRIT (BEAKER) (test ngbk=797) 24.1 % 34.1-44.9 MEAN CORPUSCULAR VOLUME (BEAKER) (test syvx=912) 85.8 fL 79.4-94.8 MEAN CORPUSCULAR HEMOGLOBIN (BEAKER) (test skfo=671) 26.3 pg 25.6-32.2 MEAN CORPUSCULAR HEMOGLOBIN CONC (BEAKER) (test rory=423) 30.7 GM/DL 32.2-35.5 RED CELL DISTRIBUTION WIDTH (BEAKER) (test xrld=387) 15.4 % 11.7-14.4 PLATELET COUNT (BEAKER) (test rgjj=449) 158 K/CU MM 150-450 MEAN PLATELET VOLUME (BEAKER) (test kmkp=494) 10.7 fL 9.4-12.3 NUCLEATED RED BLOOD CELLS (BEAKER) (test lxyb=315) 0 /100 WBC 0-0 NEUTROPHILS RELATIVE PERCENT (BEAKER) (test hotq=406) 68 % LYMPHOCYTES RELATIVE PERCENT (BEAKER) (test kbig=338) 14 % MONOCYTES RELATIVE PERCENT (BEAKER) (test axev=173) 15 % EOSINOPHILS RELATIVE PERCENT (BEAKER) (test pbdp=704) 2 % BASOPHILS RELATIVE PERCENT (BEAKER) (test fnop=284) 0 % NEUTROPHILS ABSOLUTE COUNT (BEAKER) (test vbqs=148) 3.17 K/ L 1.56-6.13 LYMPHOCYTES ABSOLUTE COUNT (BEAKER) (test nxbn=663) 0.66 K/ L 1.18-3.74 MONOCYTES ABSOLUTE COUNT (BEAKER) (test isbv=235) 0.68 K/ L 0.24-0.36 EOSINOPHILS ABSOLUTE COUNT (BEAKER) (test qkpy=862) 0.09 K/ L 0.04-0.36 BASOPHILS ABSOLUTE COUNT (BEAKER) (test hmvz=146) 0.01 K/ L 0.01-0.08 IMMATURE GRANULOCYTES-RELATIVE PERCENT (BEAKER) (test usuj=4141) 1 % 0-1 [id number] 06:48:00* Test Item Value Reference Range Comments PHOSPHORUS (BEAKER) (test kuxu=418) 4.0 mg/dL 2.3-4.7 [id number] 06:48:00* Test Item Value Reference Range Comments MAGNESIUM (BEAKER) (test orwc=320) 1.9 mg/dL 1.6-2.6 BASIC METABOLIC [id number] 06:48:00* Test Item Value Reference Range Comments SODIUM (BEAKER) (test ndvy=657) 137 meq/L 136-145 POTASSIUM (BEAKER) (test imsg=325) 4.3 meq/L 3.5-5.1 CHLORIDE (BEAKER) (test bqsr=961) 115 meq/L 98-107 CO2 (BEAKER) (test ypoh=048) 15 meq/L 22-29 BLOOD UREA NITROGEN (BEAKER) (test txoz=947) 23 mg/dL 7-21 CREATININE (BEAKER) (test agze=674) 1.27 mg/dL 0.57-1.25 GLUCOSE RANDOM (BEAKER) (test qlvj=854) 98 mg/dL 70-105 CALCIUM (BEAKER) (test ppku=704) 8.6 mg/dL 8.4-10.2 EGFR (BEAKER) (test xxzf=2612) 42 mL/min/1.73 sq m ESTIMATED GFR IS NOT ACCURATE CREATININE CLEARANCE IN PREDICTING GLOMERULAR FILTRATION RATE. ESTIMATED GFR IS NOT APPLICABLE FOR DIALYSIS PATIENTS. HEPATIC FUNCTION [id number] 06:48:00* Test Item Value Reference Range Comments TOTAL PROTEIN (BEAKER) (test rjwn=506) 6.1 gm/dL 6.0-8.3 ALBUMIN (BEAKER) (test ukoy=0921) 3.4 g/dL 3.5-5.0 BILIRUBIN TOTAL (BEAKER) (test utjx=445) 1.2 mg/dL 0.2-1.2 BILIRUBIN DIRECT (BEAKER) (test xzvc=962) 0.6 mg/dL 0.1-0.5 ALKALINE PHOSPHATASE (BEAKER) (test jabp=837) 122 U/L 40-150 AST (SGOT) (BEAKER) (test hxrk=391) 97 U/L 5-34 ALT (SGPT) (BEAKER) (test mltw=980) 36 U/L 6-55 IRON, TIBC, % SAT. (WITHOUT FERRITIN)2017-11-08 06:48:00* Test Item Value Reference Range Comments IRON (BEAKER) (test pwxd=967) 26 ug/dL 40-160 TOTAL IRON BINDING CAPACITY (BEAKER) (test czlg=479) 395 ug/dL 250-450 IRON % SATURATION (2) (BEAKER) (test tmje=7506) 7 % 20-55 PROTHROMBIN TIME/[id number] 06:29:00* Test Item Value Reference Range Comments PROTIME (BEAKER) (test dnus=917) 18.6 seconds 11.7-14.7 INR (BEAKER) (test jhoc=369) 1.6 <=5.9 RECOMMENDED COUMADIN/WARFARIN INR THERAPY RANGESSTANDARD DOSE: 2.0 - 3.0 Inclu eduar: PROPHYLAXIS for venous thrombosis, systemic embolization; TREATMENT for ania ous thrombosis and/or pulmonary embolus.HIGH RISK: Target INR is 2.5-3.5 for pat ients with mechanical heart valves.RAD, CHEST, 1 VIEW, NON [id number] 23:45:00Reason for exam:->FALLShould this be performed at the bedside?->YesFINAL REPORT History: Fall, chest pain. Comparison: 09/16/2017 Findings: A single view of the chest is submitted. The patient is rotated to the left. The cardiac silhouette is within normal limits for size. There is a therosclerotic calcification of the aorta. The previously seen left midlung harsha cified granuloma is obscured by rotation and overlying EKG artifact. There is no focal consolidation, pneumothorax, large pleural effusion or evidence of overt pulmonary edema. There is no acute bony abnormality. Impression: No acute abno rmality. Signed: Ministerio Rosenthal MDReport Verified Date/Time: 11/07/2017 23:45:52 Reading Location: [address] Reading Room Electronically sign ed by: MINISTERIO ROSENTHAL M.D. on 11/07/2017 11:45 PM [id number] 22:33:00* Test Item Value Reference Range Comments LIPASE (BEAKER) (test zwvg=617) 58 U/L 8-78 COMPREHENSIVE METABOLIC [id number] 22:33:00* Test Item Value Reference Range Comments TOTAL PROTEIN (BEAKER) (test odyw=044) 6.8 gm/dL 6.0-8.3 ALBUMIN (BEAKER) (test bahf=3781) 3.8 g/dL 3.5-5.0 ALKALINE PHOSPHATASE (BEAKER) (test vjxp=880) 107 U/L 40-150 BILIRUBIN TOTAL (BEAKER) (test iglb=881) 0.6 mg/dL 0.2-1.2 SODIUM (BEAKER) (test sgzq=507) 135 meq/L 136-145 POTASSIUM (BEAKER) (test sspa=428) 4.4 meq/L 3.5-5.1 CHLORIDE (BEAKER) (test mpgw=813) 112 meq/L 98-107 CO2 (BEAKER) (test lmej=183) 15 meq/L 22-29 BLOOD UREA NITROGEN (BEAKER) (test yxyy=735) 22 mg/dL 7-21 CREATININE (BEAKER) (test ilxd=262) 1.38 mg/dL 0.57-1.25 GLUCOSE RANDOM (BEAKER) (test ymdk=015) 95 mg/dL 70-105 CALCIUM (BEAKER) (test wypw=584) 8.5 mg/dL 8.4-10.2 AST (SGOT) (BEAKER) (test lhvy=107) 12 U/L 5-34 ALT (SGPT) (BEAKER) (test kiox=034) 9 U/L 6-55 EGFR (BEAKER) (test sgqo=4402) 38 mL/min/1.73 sq m ESTIMATED GFR IS NOT ACCURATE CREATININE CLEARANCE IN PREDICTING GLOMERULAR FILTRATION RATE. ESTIMATED GFR IS NOT APPLICABLE FOR DIALYSIS PATIENTS. LACTIC ACID, VENOUS, WHOLE [id number] 22:32:00* Test Item Value Reference Range Comments LACTATE BLOOD VENOUS (2) (BEAKER) (test jwxl=7637) 1.0 mmol/L 0.5-2.2 Effective 11/02/2015: Units/Reference Range ChangeNew: 0.5-2.2 mmol/L Previous: 5 -20 mg/dLURINALYSIS W/ REFLEX URINE [id number] 22:10:00* Test Item Value Reference Range Comments COLOR (BEAKER) (test dqrj=465) Light Yellow CLARITY (BEAKER) (test otny=881) Clear SPECIFIC GRAVITY UA (BEAKER) (test zunw=603) 1.010 1.001-1.035 PH UA (BEAKER) (test rmtv=051) 5.5 5.0-8.0 PROTEIN UA (BEAKER) (test hplb=869) Negative Negative GLUCOSE UA (BEAKER) (test vgvc=532) Negative Negative KETONES UA (BEAKER) (test bmgz=097) Negative Negative BILIRUBIN UA (BEAKER) (test hujg=918) Negative Negative BLOOD UA (BEAKER) (test dqeh=131) Negative Negative NITRITE UA (BEAKER) (test frgy=141) Negative Negative LEUKOCYTE ESTERASE UA (BEAKER) (test wjqy=305) Negative Negative UROBILINOGEN UA (BEAKER) (test ikri=189) 0.2 mg/dL 0.2-1.0 RBC UA (BEAKER) (test dnif=995) < /HPF WBC UA (BEAKER) (test vsyf=130) 2 /HPF BACTERIA (BEAKER) (test uyxj=073) Occasional SQUAMOUS EPITHELIAL (BEAKER) (test wrns=432) < /HPF SOURCE(BEAKER) (test amlb=1560) CBC W/PLT COUNT & AUTO [id number] 22:03:00* Test Item Value Reference Range Comments WHITE BLOOD CELL COUNT (BEAKER) (test gxeh=827) 7.2 K/ L 3.5-10.5 RED BLOOD CELL COUNT (BEAKER) (test vytp=045) 2.60 M/ L 3.93-5.22 HEMOGLOBIN (BEAKER) (test jjbt=954) 7.0 GM/DL 11.2-15.7 HEMATOCRIT (BEAKER) (test fbvy=720) 22.1 % 34.1-44.9 MEAN CORPUSCULAR VOLUME (BEAKER) (test khai=705) 85.0 fL 79.4-94.8 MEAN CORPUSCULAR HEMOGLOBIN (BEAKER) (test iwmo=703) 26.9 pg 25.6-32.2 MEAN CORPUSCULAR HEMOGLOBIN CONC (BEAKER) (test njlj=500) 31.7 GM/DL 32.2-35.5 RED CELL DISTRIBUTION WIDTH (BEAKER) (test xocn=847) 15.9 % 11.7-14.4 PLATELET COUNT (BEAKER) (test urrf=778) 193 K/CU MM 150-450 MEAN PLATELET VOLUME (BEAKER) (test eubo=427) 10.5 fL 9.4-12.3 NUCLEATED RED BLOOD CELLS (BEAKER) (test zids=901) 0 /100 WBC 0-0 NEUTROPHILS RELATIVE PERCENT (BEAKER) (test uhgf=131) 82 % LYMPHOCYTES RELATIVE PERCENT (BEAKER) (test gaqy=258) 7 % MONOCYTES RELATIVE PERCENT (BEAKER) (test oqta=852) 9 % EOSINOPHILS RELATIVE PERCENT (BEAKER) (test qfcf=846) 1 % BASOPHILS RELATIVE PERCENT (BEAKER) (test kebs=490) 0 % NEUTROPHILS ABSOLUTE COUNT (BEAKER) (test bazc=326) 5.94 K/ L 1.56-6.13 LYMPHOCYTES ABSOLUTE COUNT (BEAKER) (test cpya=562) 0.53 K/ L 1.18-3.74 MONOCYTES ABSOLUTE COUNT (BEAKER) (test mjrj=077) 0.67 K/ L 0.24-0.36 EOSINOPHILS ABSOLUTE COUNT (BEAKER) (test guum=462) 0.06 K/ L 0.04-0.36 BASOPHILS ABSOLUTE COUNT (BEAKER) (test ebpb=391) 0.01 K/ L 0.01-0.08 IMMATURE GRANULOCYTES-RELATIVE PERCENT (BEAKER) (test sdic=9380) 0 % 0-1 TACROLIMUS [id number] 09:37:00* Test Item Value Reference Range Comments TACROLIMUS BLOOD (BEAKER) (test yyml=955) 5.4 ng/mL 10.0-20.0 [id number] 08:28:00* Test Item Value Reference Range Comments PARTIAL THROMBOPLASTIN TIME (BEAKER) (test xbmb=781) 59.1 seconds 22.5-36.0 [id number] 07:02:00* Test Item Value Reference Range Comments PARTIAL THROMBOPLASTIN TIME (BEAKER) (test opzc=050) 131.7 seconds 22.5-36.0 PROTHROMBIN TIME/[id number] 06:50:00* Test Item Value Reference Range Comments PROTIME (BEAKER) (test reiv=824) 15.3 seconds 11.7-14.7 INR (BEAKER) (test cygq=758) 1.2 <=5.9 RECOMMENDED COUMADIN/WARFARIN INR THERAPY RANGESSTANDARD DOSE: 2.0 - 3.0 Inclu eduar: PROPHYLAXIS for venous thrombosis, systemic embolization; TREATMENT for ania ous thrombosis and/or pulmonary embolus.HIGH RISK: Target INR is 2.5-3.5 for pat ients with mechanical heart valves.COMPREHENSIVE METABOLIC [id number] 06:47:00* Test Item Value Reference Range Comments TOTAL PROTEIN (BEAKER) (test gzzv=285) 5.9 gm/dL 6.0-8.3 ALBUMIN (BEAKER) (test ajvo=2582) 3.3 g/dL 3.5-5.0 ALKALINE PHOSPHATASE (BEAKER) (test csfk=059) 92 U/L 40-150 BILIRUBIN TOTAL (BEAKER) (test zqnn=244) 0.3 mg/dL 0.2-1.2 SODIUM (BEAKER) (test zoib=912) 133 meq/L 136-145 POTASSIUM (BEAKER) (test hmmv=569) 4.9 meq/L 3.5-5.1 CHLORIDE (BEAKER) (test tzkt=177) 106 meq/L 98-107 CO2 (BEAKER) (test wuib=654) 20 meq/L 22-29 BLOOD UREA NITROGEN (BEAKER) (test ebye=857) 22 mg/dL 7-21 CREATININE (BEAKER) (test xijj=668) 1.57 mg/dL 0.57-1.25 GLUCOSE RANDOM (BEAKER) (test lpar=123) 106 mg/dL 70-105 CALCIUM (BEAKER) (test tkmf=017) 8.5 mg/dL 8.4-10.2 AST (SGOT) (BEAKER) (test ztva=150) 47 U/L 5-34 ALT (SGPT) (BEAKER) (test lzgq=777) 33 U/L 6-55 EGFR (BEAKER) (test jvhv=1639) 33 mL/min/1.73 sq m ESTIMATED GFR IS NOT ACCURATE CREATININE CLEARANCE IN PREDICTING GLOMERULAR FILTRATION RATE. ESTIMATED GFR IS NOT APPLICABLE FOR DIALYSIS PATIENTS. CBC (HEMOGRAM ONLY)2017-10-15 06:41:00* Test Item Value Reference Range Comments WHITE BLOOD CELL COUNT (BEAKER) (test yilo=670) 3.3 K/ L 3.5-10.5 RED BLOOD CELL COUNT (BEAKER) (test lqeh=154) 2.73 M/ L 3.93-5.22 HEMOGLOBIN (BEAKER) (test kfdq=328) 7.5 GM/DL 11.2-15.7 HEMATOCRIT (BEAKER) (test nysq=028) 24.6 % 34.1-44.9 MEAN CORPUSCULAR VOLUME (BEAKER) (test ljrm=730) 90.1 fL 79.4-94.8 MEAN CORPUSCULAR HEMOGLOBIN (BEAKER) (test yalz=709) 27.5 pg 25.6-32.2 MEAN CORPUSCULAR HEMOGLOBIN CONC (BEAKER) (test qjdu=902) 30.5 GM/DL 32.2-35.5 RED CELL DISTRIBUTION WIDTH (BEAKER) (test cywz=532) 15.5 % 11.7-14.4 PLATELET COUNT (BEAKER) (test zfmn=277) 148 K/CU MM 150-450 MEAN PLATELET VOLUME (BEAKER) (test heqv=824) 11.8 fL 9.4-12.3 NUCLEATED RED BLOOD CELLS (BEAKER) (test hbjv=581) 0 /100 WBC 0-0 [id number] 00:26:00* Test Item Value Reference Range Comments PARTIAL THROMBOPLASTIN TIME (BEAKER) (test upkz=496) 102.8 seconds 22.5-36.0 [id number] 16:57:00* Test Item Value Reference Range Comments PARTIAL THROMBOPLASTIN TIME (BEAKER) (test ukyk=648) 57.7 seconds 22.5-36.0 [id number] 14:27:00* Test Item Value Reference Range Comments PARTIAL THROMBOPLASTIN TIME (BEAKER) (test eqhz=005) 192.3 seconds 22.5-36.0 [id number] 05:45:00* Test Item Value Reference Range Comments PROTIME (BEAKER) (test fvjk=992) 16.4 seconds 11.7-14.7 INR (BEAKER) (test dimn=604) 1.3 <=5.9 PARTIAL THROMBOPLASTIN TIME (BEAKER) (test ijue=108) 31.5 seconds 22.5-36.0 RECOMMENDED COUMADIN/WARFARIN INR THERAPY RANGESSTANDARD DOSE: 2.0 - 3.0 Inclu eduar: PROPHYLAXIS for venous thrombosis, systemic embolization; TREATMENT for ania ous thrombosis and/or pulmonary embolus.HIGH RISK: Target INR is 2.5-3.5 for pat ients with mechanical heart valves.BASIC METABOLIC [id number] 04:53:00* Test Item Value Reference Range Comments SODIUM (BEAKER) (test nknb=823) 140 meq/L 136-145 POTASSIUM (BEAKER) (test wfzu=166) 4.3 meq/L 3.5-5.1 CHLORIDE (BEAKER) (test jcmc=432) 110 meq/L 98-107 CO2 (BEAKER) (test ogit=970) 19 meq/L 22-29 BLOOD UREA NITROGEN (BEAKER) (test clbe=734) 21 mg/dL 7-21 CREATININE (BEAKER) (test nxth=076) 1.84 mg/dL 0.57-1.25 GLUCOSE RANDOM (BEAKER) (test jpht=790) 108 mg/dL 70-105 CALCIUM (BEAKER) (test cswq=853) 9.5 mg/dL 8.4-10.2 EGFR (BEAKER) (test lhmu=6723) 27 mL/min/1.73 sq m ESTIMATED GFR IS NOT ACCURATE CREATININE CLEARANCE IN PREDICTING GLOMERULAR FILTRATION RATE. ESTIMATED GFR IS NOT APPLICABLE FOR DIALYSIS PATIENTS. HEPATIC FUNCTION [id number] 04:52:00* Test Item Value Reference Range Comments TOTAL PROTEIN (BEAKER) (test kaat=127) 6.7 gm/dL 6.0-8.3 ALBUMIN (BEAKER) (test ksoz=6156) 3.7 g/dL 3.5-5.0 BILIRUBIN TOTAL (BEAKER) (test vnrw=011) 0.5 mg/dL 0.2-1.2 BILIRUBIN DIRECT (BEAKER) (test lall=255) 0.2 mg/dL 0.1-0.5 ALKALINE PHOSPHATASE (BEAKER) (test eaid=089) 100 U/L 40-150 AST (SGOT) (BEAKER) (test xrrw=988) 22 U/L 5-34 ALT (SGPT) (BEAKER) (test lqsq=084) 11 U/L 6-55 CBC W/PLT COUNT & AUTO [id number] 04:45:00* Test Item Value Reference Range Comments WHITE BLOOD CELL COUNT (BEAKER) (test uzsj=702) 3.6 K/ L 3.5-10.5 RED BLOOD CELL COUNT (BEAKER) (test ppub=933) 3.13 M/ L 3.93-5.22 HEMOGLOBIN (BEAKER) (test rbse=195) 8.4 GM/DL 11.2-15.7 HEMATOCRIT (BEAKER) (test xkyk=518) 27.6 % 34.1-44.9 MEAN CORPUSCULAR VOLUME (BEAKER) (test ijkw=800) 88.2 fL 79.4-94.8 MEAN CORPUSCULAR HEMOGLOBIN (BEAKER) (test sfzs=120) 26.8 pg 25.6-32.2 MEAN CORPUSCULAR HEMOGLOBIN CONC (BEAKER) (test zwdk=769) 30.4 GM/DL 32.2-35.5 RED CELL DISTRIBUTION WIDTH (BEAKER) (test rgxs=691) 15.9 % 11.7-14.4 PLATELET COUNT (BEAKER) (test oitb=019) 190 K/CU MM 150-450 MEAN PLATELET VOLUME (BEAKER) (test nuxt=088) 11.4 fL 9.4-12.3 NUCLEATED RED BLOOD CELLS (BEAKER) (test ghql=494) 0 /100 WBC 0-0 NEUTROPHILS RELATIVE PERCENT (BEAKER) (test ysda=434) 49 % LYMPHOCYTES RELATIVE PERCENT (BEAKER) (test gvso=703) 23 % MONOCYTES RELATIVE PERCENT (BEAKER) (test gagl=887) 15 % EOSINOPHILS RELATIVE PERCENT (BEAKER) (test apei=942) 13 % BASOPHILS RELATIVE PERCENT (BEAKER) (test ihwk=133) 1 % NEUTROPHILS ABSOLUTE COUNT (BEAKER) (test hmki=330) 1.74 K/ L 1.56-6.13 LYMPHOCYTES ABSOLUTE COUNT (BEAKER) (test bgzn=711) 0.82 K/ L 1.18-3.74 MONOCYTES ABSOLUTE COUNT (BEAKER) (test kznj=690) 0.53 K/ L 0.24-0.36 EOSINOPHILS ABSOLUTE COUNT (BEAKER) (test yhcm=095) 0.45 K/ L 0.04-0.36 BASOPHILS ABSOLUTE COUNT (BEAKER) (test rpmp=084) 0.02 K/ L 0.01-0.08 IMMATURE GRANULOCYTES-RELATIVE PERCENT (BEAKER) (test ffad=6857) 0 % 0-1 PROTHROMBIN [id number] 08:53:00* Test Item Value Reference Range Comments PROTIME (BEAKER) (test ijpn=957) 31.1 seconds 11.7-14.7 INR (BEAKER) (test gykq=863) 3.0 <=5.9 RECOMMENDED COUMADIN/WARFARIN INR THERAPY RANGESSTANDARD DOSE: 2.0 - 3.0 Inclu eduar: PROPHYLAXIS for venous thrombosis, systemic embolization; TREATMENT for ania ous thrombosis and/or pulmonary embolus.HIGH RISK: Target INR is 2.5-3.5 for pat ients with mechanical heart valves.TACROLIMUS [id number] 08:24:00* Test Item Value Reference Range Comments TACROLIMUS BLOOD (BEAKER) (test kwnb=181) 5.3 ng/mL 10.0-20.0 [id number] 07:13:00* Test Item Value Reference Range Comments PARTIAL THROMBOPLASTIN TIME (BEAKER) (test bpzj=206) 102.8 seconds 22.5-36.0 BASIC METABOLIC [id number] 06:54:00* Test Item Value Reference Range Comments SODIUM (BEAKER) (test twho=452) 138 meq/L 136-145 POTASSIUM (BEAKER) (test jnrs=384) 4.4 meq/L 3.5-5.1 CHLORIDE (BEAKER) (test dfgj=671) 109 meq/L 98-107 CO2 (BEAKER) (test nbvb=521) 20 meq/L 22-29 BLOOD UREA NITROGEN (BEAKER) (test mcaj=170) 24 mg/dL 7-21 CREATININE (BEAKER) (test majd=003) 1.41 mg/dL 0.57-1.25 GLUCOSE RANDOM (BEAKER) (test txqm=791) 98 mg/dL 70-105 CALCIUM (BEAKER) (test rats=464) 8.8 mg/dL 8.4-10.2 EGFR (BEAKER) (test nsyg=7817) 37 mL/min/1.73 sq m ESTIMATED GFR IS NOT ACCURATE CREATININE CLEARANCE IN PREDICTING GLOMERULAR FILTRATION RATE. ESTIMATED GFR IS NOT APPLICABLE FOR DIALYSIS PATIENTS. HEPATIC FUNCTION [id number] 06:53:00* Test Item Value Reference Range Comments TOTAL PROTEIN (BEAKER) (test jpnr=779) 5.6 gm/dL 6.0-8.3 ALBUMIN (BEAKER) (test wrrm=7319) 2.9 g/dL 3.5-5.0 BILIRUBIN TOTAL (BEAKER) (test qcvb=549) 0.2 mg/dL 0.2-1.2 BILIRUBIN DIRECT (BEAKER) (test fzth=139) 0.1 mg/dL 0.1-0.5 ALKALINE PHOSPHATASE (BEAKER) (test xegy=856) 155 U/L 40-150 AST (SGOT) (BEAKER) (test rbug=757) 27 U/L 5-34 ALT (SGPT) (BEAKER) (test tiwc=178) 17 U/L 6-55 CBC W/PLT COUNT & AUTO [id number] 06:23:00* Test Item Value Reference Range Comments WHITE BLOOD CELL COUNT (BEAKER) (test yesq=723) 3.3 K/ L 3.5-10.5 RED BLOOD CELL COUNT (BEAKER) (test qpke=256) 2.92 M/ L 3.93-5.22 HEMOGLOBIN (BEAKER) (test fdjz=832) 7.9 GM/DL 11.2-15.7 HEMATOCRIT (BEAKER) (test jkhp=562) 26.1 % 34.1-44.9 MEAN CORPUSCULAR VOLUME (BEAKER) (test ivgv=773) 89.4 fL 79.4-94.8 MEAN CORPUSCULAR HEMOGLOBIN (BEAKER) (test umbn=025) 27.1 pg 25.6-32.2 MEAN CORPUSCULAR HEMOGLOBIN CONC (BEAKER) (test gkgu=554) 30.3 GM/DL 32.2-35.5 RED CELL DISTRIBUTION WIDTH (BEAKER) (test auux=140) 16.5 % 11.7-14.4 PLATELET COUNT (BEAKER) (test wmtz=047) 191 K/CU MM 150-450 MEAN PLATELET VOLUME (BEAKER) (test ejjn=098) 11.3 fL 9.4-12.3 NUCLEATED RED BLOOD CELLS (BEAKER) (test yxyy=781) 0 /100 WBC 0-0 NEUTROPHILS RELATIVE PERCENT (BEAKER) (test lzyd=882) 45 % LYMPHOCYTES RELATIVE PERCENT (BEAKER) (test qwte=678) 27 % MONOCYTES RELATIVE PERCENT (BEAKER) (test grmc=532) 15 % EOSINOPHILS RELATIVE PERCENT (BEAKER) (test wgbj=604) 12 % BASOPHILS RELATIVE PERCENT (BEAKER) (test ufzy=040) 1 % NEUTROPHILS ABSOLUTE COUNT (BEAKER) (test mnce=184) 1.51 K/ L 1.56-6.13 LYMPHOCYTES ABSOLUTE COUNT (BEAKER) (test gllc=472) 0.89 K/ L 1.18-3.74 MONOCYTES ABSOLUTE COUNT (BEAKER) (test tmta=770) 0.50 K/ L 0.24-0.36 EOSINOPHILS ABSOLUTE COUNT (BEAKER) (test vtqj=628) 0.40 K/ L 0.04-0.36 BASOPHILS ABSOLUTE COUNT (BEAKER) (test hfbd=945) 0.02 K/ L 0.01-0.08 IMMATURE GRANULOCYTES-RELATIVE PERCENT (BEAKER) (test hmfb=5769) 0 % 0-1 [id number] 00:03:00* Test Item Value Reference Range Comments PARTIAL THROMBOPLASTIN TIME (BEAKER) (test lntz=418) 84.7 seconds 22.5-36.0 [id number] 18:16:00* Test Item Value Reference Range Comments PARTIAL THROMBOPLASTIN TIME (BEAKER) (test muef=965) 59.0 seconds 22.5-36.0 BASIC METABOLIC [id number] 18:07:00* Test Item Value Reference Range Comments SODIUM (BEAKER) (test yiym=555) 142 meq/L 136-145 POTASSIUM (BEAKER) (test cjid=214) 4.7 meq/L 3.5-5.1 CHLORIDE (BEAKER) (test jnuc=365) 113 meq/L 98-107 CO2 (BEAKER) (test qilg=468) 20 meq/L 22-29 BLOOD UREA NITROGEN (BEAKER) (test jslc=951) 23 mg/dL 7-21 CREATININE (BEAKER) (test rtyu=802) 1.37 mg/dL 0.57-1.25 GLUCOSE RANDOM (BEAKER) (test sfcs=314) 105 mg/dL 70-105 CALCIUM (BEAKER) (test vkrr=148) 8.9 mg/dL 8.4-10.2 EGFR (BEAKER) (test myao=2650) 38 mL/min/1.73 sq m ESTIMATED GFR IS NOT ACCURATE CREATININE CLEARANCE IN PREDICTING GLOMERULAR FILTRATION RATE. ESTIMATED GFR IS NOT APPLICABLE FOR DIALYSIS PATIENTS. [id number] 15:48:00* Test Item Value Reference Range Comments PARTIAL THROMBOPLASTIN TIME (BEAKER) (test otjm=276) 114.9 seconds 22.5-36.0 BASIC METABOLIC [id number] 11:26:00* Test Item Value Reference Range Comments SODIUM (BEAKER) (test owcm=141) 135 meq/L 136-145 POTASSIUM (BEAKER) (test zdrx=713) 5.8 meq/L 3.5-5.1 Specimen markedly hemolyzed CHLORIDE (BEAKER) (test xuip=355) 108 meq/L 98-107 CO2 (BEAKER) (test fzgb=812) 18 meq/L 22-29 BLOOD UREA NITROGEN (BEAKER) (test ypyk=247) 22 mg/dL 7-21 CREATININE (BEAKER) (test nlmb=617) 1.43 mg/dL 0.57-1.25 Specimen markedly hemolyzed GLUCOSE RANDOM (BEAKER) (test owsc=582) 104 mg/dL 70-105 CALCIUM (BEAKER) (test gdfc=054) 8.7 mg/dL 8.4-10.2 EGFR (BEAKER) (test hfzq=0951) 36 mL/min/1.73 sq m ESTIMATED GFR IS NOT ACCURATE CREATININE CLEARANCE IN PREDICTING GLOMERULAR FILTRATION RATE. ESTIMATED GFR IS NOT APPLICABLE FOR DIALYSIS PATIENTS. TACROLIMUS [id number] 09:58:00* Test Item Value Reference Range Comments TACROLIMUS BLOOD (BEAKER) (test visb=267) 4.7 ng/mL 10.0-20.0 [id number] 06:17:00* Test Item Value Reference Range Comments PARTIAL THROMBOPLASTIN TIME (BEAKER) (test tpdx=363) 62.6 seconds 22.5-36.0 PROTHROMBIN TIME/[id number] 06:16:00* Test Item Value Reference Range Comments PROTIME (BEAKER) (test rttl=051) 26.2 seconds 11.7-14.7 INR (BEAKER) (test qzox=688) 2.4 <=5.9 RECOMMENDED COUMADIN/WARFARIN INR THERAPY RANGESSTANDARD DOSE: 2.0 - 3.0 Inclu eduar: PROPHYLAXIS for venous thrombosis, systemic embolization; TREATMENT for ania ous thrombosis and/or pulmonary embolus.HIGH RISK: Target INR is 2.5-3.5 for pat ients with mechanical heart valves.HEPATIC FUNCTION [id number] 06:08:00* Test Item Value Reference Range Comments TOTAL PROTEIN (BEAKER) (test enml=113) 5.8 gm/dL 6.0-8.3 ALBUMIN (BEAKER) (test knnj=1353) 3.0 g/dL 3.5-5.0 BILIRUBIN TOTAL (BEAKER) (test pavt=056) 0.2 mg/dL 0.2-1.2 BILIRUBIN DIRECT (BEAKER) (test fexh=458) 0.1 mg/dL 0.1-0.5 ALKALINE PHOSPHATASE (BEAKER) (test sgqb=187) 164 U/L 40-150 AST (SGOT) (BEAKER) (test tgwh=776) 22 U/L 5-34 ALT (SGPT) (BEAKER) (test vnna=762) 18 U/L 6-55 [id number] 03:57:00* Test Item Value Reference Range Comments PARTIAL THROMBOPLASTIN TIME (BEAKER) (test bchu=844) 146.1 seconds 22.5-36.0 [id number] 19:42:00* Test Item Value Reference Range Comments PARTIAL THROMBOPLASTIN TIME (BEAKER) (test bbdy=179) 106.4 seconds 22.5-36.0 TACROLIMUS [id number] 12:55:00* Test Item Value Reference Range Comments TACROLIMUS BLOOD (BEAKER) (test dhqa=048) 6.5 ng/mL 10.0-20.0 [id number] 10:01:00* Test Item Value Reference Range Comments PARTIAL THROMBOPLASTIN TIME (BEAKER) (test qjlw=669) 53.1 seconds 22.5-36.0 BASIC METABOLIC [id number] 08:52:00* Test Item Value Reference Range Comments SODIUM (BEAKER) (test qgmc=961) 138 meq/L 136-145 POTASSIUM (BEAKER) (test rdnf=835) 4.5 meq/L 3.5-5.1 CHLORIDE (BEAKER) (test ytfc=584) 108 meq/L 98-107 CO2 (BEAKER) (test robz=382) 17 meq/L 22-29 BLOOD UREA NITROGEN (BEAKER) (test bjnl=324) 26 mg/dL 7-21 CREATININE (BEAKER) (test rgol=160) 1.86 mg/dL 0.57-1.25 GLUCOSE RANDOM (BEAKER) (test skwd=182) 101 mg/dL 70-105 CALCIUM (BEAKER) (test bjro=029) 8.8 mg/dL 8.4-10.2 EGFR (BEAKER) (test uhzz=6561) 27 mL/min/1.73 sq m ESTIMATED GFR IS NOT ACCURATE CREATININE CLEARANCE IN PREDICTING GLOMERULAR FILTRATION RATE. ESTIMATED GFR IS NOT APPLICABLE FOR DIALYSIS PATIENTS. HEPATIC FUNCTION [id number] 08:44:00* Test Item Value Reference Range Comments TOTAL PROTEIN (BEAKER) (test vjpu=595) 5.9 gm/dL 6.0-8.3 ALBUMIN (BEAKER) (test touh=9690) 3.0 g/dL 3.5-5.0 BILIRUBIN TOTAL (BEAKER) (test gatp=724) 0.2 mg/dL 0.2-1.2 BILIRUBIN DIRECT (BEAKER) (test oufa=287) 0.1 mg/dL 0.1-0.5 ALKALINE PHOSPHATASE (BEAKER) (test rszj=831) 175 U/L 40-150 AST (SGOT) (BEAKER) (test pnhk=257) 29 U/L 5-34 ALT (SGPT) (BEAKER) (test oqki=557) 22 U/L 6-55 [id number] 07:18:00* Test Item Value Reference Range Comments PARTIAL THROMBOPLASTIN TIME (BEAKER) (test tyar=308) 117.0 seconds 22.5-36.0 PROTHROMBIN [id number] 06:46:00* Test Item Value Reference Range Comments PROTIME (BEAKER) (test kuki=860) 20.3 seconds 11.7-14.7 INR (AVELINA) (test usje=699) 1.7 <=5.9 RECOMMENDED COUMADIN/WARFARIN INR THERAPY RANGESSTANDARD DOSE: 2.0 - 3.0 Inclu eduar: PROPHYLAXIS for venous thrombosis, systemic embolization; TREATMENT for ania ous thrombosis and/or pulmonary embolus.HIGH RISK: Target INR is 2.5-3.5 for pat ients with mechanical heart valves.[id number] 00:41:00* Test Item Value Reference Range Comments PARTIAL THROMBOPLASTIN TIME (AVELINA) (test parl=552) 48.9 seconds 22.5-36.0 CT, [id number] 17:45:00FINAL REPORT CT scan of the abdomen and pelvis. CLINICAL HISTORY: Abdominal pain, gastroenteritis, postsurgical pain. COMPARISON STUDY: July 19, 2017. TECHNIQUE: Contiguous helical slices were acquired through the abdomen and pelvis posted ministration of oral contrast. No intravenous contrast was administered. This exam was performed according to our department dose optimization program which includes automated exposure control, adjustment of the mA and/or kV according to the patient's size and/or use of iterative reconstruction technique. FINDINGS: A 9 mm granuloma seen in the left lower lobe on image four. Atelectatic changes are seen in the lung bases with a small left-sided pleural effusion. A small hiatal hernia is seen. The liver demonstrates areas of heterogeneous low attenuation, most likely heterogeneous fatty infiltration but it is more pronounced than on previous and therefore could be assessed with MRI. The spleen, pancreas, and adrenal glands are unremarkable. Both kidneys are atrophic in nature. The gallbladder is not seen. No biliary dilatation is identified. There are no dilated loops of bowel seen to suggest obstruction. Diverticulosis is seen without evidence of diverticulitis. The uterus has been resected. The aorta is normal in caliber. Atherosclerosis is seen. There is no suspicious adenopathy. Mild peripancreatic stranding is seen but this is similar to previous. There is extensive diastasis of the rectus abdominis muscle with a mesh seen anteriorly. Thickening of the right-sided anterior perirenal fascia is seen. Bone windows demonstrate degenerative changes. IMPRESSION:1. Small left-sided pleural effus ion with adjacent atelectasis or consolidation.2. Heterogeneous low-attenuation throughout the liver most likely representing heterogeneous fatty infiltration. This could be coiled with MRI to exclude any infiltrative masses.3. Peripancreat ic and mesenteric stranding, similar to previous.4. Mesh in the anterior abdomen with extensive diastases.5. Other findings as described above. The study is bowser ited by lack of contrast. Signed: Juan David Almeida MDReport Verified Date/Time: 09/20/2017 17:45:41 Reading Location: [address] Ortho Consult Reading Room 2017-09-20 16:58:00* Test Item Value Reference Range Comments PARTIAL THROMBOPLASTIN TIME (BEAKER) (test qdou=542) 50.1 seconds 22.5-36.0 [id number] 14:21:00* Test Item Value Reference Range Comments FERRITIN (BEAKER) (test mpyn=183) 64 ng/mL 5-275 [id number] 13:49:00* Test Item Value Reference Range Comments PARTIAL THROMBOPLASTIN TIME (BEAKER) (test ktpm=301) 94.9 seconds 22.5-36.0 PROTHROMBIN TIME/[id number] 13:47:00* Test Item Value Reference Range Comments PROTIME (BEAKER) (test qnvx=408) 16.4 seconds 11.7-14.7 INR (BEAKER) (test uzxn=831) 1.3 <=5.9 RECOMMENDED COUMADIN/WARFARIN INR THERAPY RANGESSTANDARD DOSE: 2.0 - 3.0 Inclu eduar: PROPHYLAXIS for venous thrombosis, systemic embolization; TREATMENT for ania ous thrombosis and/or pulmonary embolus.HIGH RISK: Target INR is 2.5-3.5 for pat ients with mechanical heart valves.TACROLIMUS [id number] 10:41:00* Test Item Value Reference Range Comments TACROLIMUS BLOOD (BEAKER) (test iuvo=768) 5.9 ng/mL 10.0-20.0 HEPATIC FUNCTION [id number] 07:37:00* Test Item Value Reference Range Comments TOTAL PROTEIN (BEAKER) (test gucc=694) 6.1 gm/dL 6.0-8.3 ALBUMIN (BEAKER) (test nzdq=3071) 3.1 g/dL 3.5-5.0 BILIRUBIN TOTAL (BEAKER) (test gvli=179) 0.3 mg/dL 0.2-1.2 BILIRUBIN DIRECT (BEAKER) (test ptmc=537) 0.2 mg/dL 0.1-0.5 ALKALINE PHOSPHATASE (BEAKER) (test wfhy=978) 189 U/L 40-150 AST (SGOT) (BEAKER) (test lsqd=642) 31 U/L 5-34 ALT (SGPT) (BEAKER) (test hrgv=984) 25 U/L 6-55 CBC W/PLT COUNT & AUTO [id number] 07:36:00* Test Item Value Reference Range Comments WHITE BLOOD CELL COUNT (BEAKER) (test pmyr=995) 3.6 K/ L 3.5-10.5 RED BLOOD CELL COUNT (BEAKER) (test vkaz=148) 3.08 M/ L 3.93-5.22 HEMOGLOBIN (BEAKER) (test vvgl=086) 8.6 GM/DL 11.2-15.7 HEMATOCRIT (BEAKER) (test ciak=896) 27.5 % 34.1-44.9 MEAN CORPUSCULAR VOLUME (BEAKER) (test zoam=524) 89.3 fL 79.4-94.8 MEAN CORPUSCULAR HEMOGLOBIN (BEAKER) (test cial=320) 27.9 pg 25.6-32.2 MEAN CORPUSCULAR HEMOGLOBIN CONC (BEAKER) (test lvib=597) 31.3 GM/DL 32.2-35.5 RED CELL DISTRIBUTION WIDTH (BEAKER) (test sfne=803) 16.7 % 11.7-14.4 PLATELET COUNT (BEAKER) (test ylzk=491) 182 K/CU MM 150-450 MEAN PLATELET VOLUME (BEAKER) (test pcle=747) 12.0 fL 9.4-12.3 NUCLEATED RED BLOOD CELLS (BEAKER) (test wzpz=125) 0 /100 WBC 0-0 NEUTROPHILS RELATIVE PERCENT (BEAKER) (test gbtn=478) 46 % LYMPHOCYTES RELATIVE PERCENT (BEAKER) (test obpu=774) 30 % MONOCYTES RELATIVE PERCENT (BEAKER) (test zhiy=336) 14 % EOSINOPHILS RELATIVE PERCENT (BEAKER) (test scym=062) 9 % BASOPHILS RELATIVE PERCENT (BEAKER) (test ixjn=149) 0 % NEUTROPHILS ABSOLUTE COUNT (BEAKER) (test nhjn=563) 1.66 K/ L 1.56-6.13 LYMPHOCYTES ABSOLUTE COUNT (BEAKER) (test hneu=168) 1.07 K/ L 1.18-3.74 MONOCYTES ABSOLUTE COUNT (BEAKER) (test cnnp=918) 0.51 K/ L 0.24-0.36 EOSINOPHILS ABSOLUTE COUNT (BEAKER) (test yxlr=958) 0.32 K/ L 0.04-0.36 BASOPHILS ABSOLUTE COUNT (BEAKER) (test yivf=018) 0.01 K/ L 0.01-0.08 IMMATURE GRANULOCYTES-RELATIVE PERCENT (BEAKER) (test suqv=1679) 0 % 0-1 [id number] 07:02:00* Test Item Value Reference Range Comments PARTIAL THROMBOPLASTIN TIME (BEAKER) (test yvwi=913) 112.8 seconds 22.5-36.0 [id number] 00:25:00* Test Item Value Reference Range Comments PARTIAL THROMBOPLASTIN TIME (BEAKER) (test uxif=532) 44.3 seconds 22.5-36.0 [id number] 18:04:00* Test Item Value Reference Range Comments PARTIAL THROMBOPLASTIN TIME (BEAKER) (test osnr=504) 40.6 seconds 22.5-36.0 [id number] 15:55:00* Test Item Value Reference Range Comments PARTIAL THROMBOPLASTIN TIME (BEAKER) (test jhfc=218) 114.6 seconds 22.5-36.0 TACROLIMUS [id number] 12:53:00* Test Item Value Reference Range Comments TACROLIMUS BLOOD (BEAKER) (test jpma=771) 6.2 ng/mL 10.0-20.0 IRON, TIBC, % SAT. (WITHOUT FERRITIN)2017-09-19 10:23:00* Test Item Value Reference Range Comments IRON (BEAKER) (test ixre=370) 22 ug/dL 40-160 TOTAL IRON BINDING CAPACITY (BEAKER) (test bvlq=488) 273 ug/dL 250-450 IRON % SATURATION (2) (BEAKER) (test mgjq=0085) 8 % 20-55 [id number] 10:20:00* Test Item Value Reference Range Comments PARTIAL THROMBOPLASTIN TIME (BEAKER) (test cgox=823) 53.5 seconds 22.5-36.0 RETICULOCYTE [id number] 10:06:00* Test Item Value Reference Range Comments RETICULOCYTE COUNT PCT (BEAKER) (test gmqd=598) 1.4 % 0.5-1.7 TACROLIMUS [id number] 09:48:00* Test Item Value Reference Range Comments TACROLIMUS BLOOD (BEAKER) (test rdrb=438) 3.9 ng/mL 10.0-20.0 RAD, ABDOMEN/KUB, 1 VIEW [id number] 09:19:00Reason for exam:->abd painFINAL REPORT Abdomen one view supine 09/19/2017 9:18 AM CLINICAL INDICATION: abd pain COMPARISON: 07/17/2017 IMPRESSION: There is no radiographic evidence of bowel obstruction. There is no remarkable ileus or colonic fecal burden. No abnormal calcifications are seen in the region of the gallbladder or kidneys. There are no acute-appearing skeletal abnormalities. Signed: Raman Ochoa Verified Date/Time: 09/19/2017 09:19:02 Reading Location: [facility] Radiology Reading Room C METABOLIC [id number] 08:11:00* Test Item Value Reference Range Comments SODIUM (BEAKER) (test znox=526) 141 meq/L 136-145 POTASSIUM (BEAKER) (test dltq=563) 4.2 meq/L 3.5-5.1 CHLORIDE (BEAKER) (test ptic=028) 109 meq/L 98-107 CO2 (BEAKER) (test kame=960) 20 meq/L 22-29 BLOOD UREA NITROGEN (BEAKER) (test pnvr=767) 28 mg/dL 7-21 CREATININE (BEAKER) (test rywq=754) 1.92 mg/dL 0.57-1.25 GLUCOSE RANDOM (BEAKER) (test cpii=683) 94 mg/dL 70-105 CALCIUM (BEAKER) (test wmvw=985) 8.9 mg/dL 8.4-10.2 EGFR (BEAKER) (test jdgb=6545) 26 mL/min/1.73 sq m ESTIMATED GFR IS NOT ACCURATE CREATININE CLEARANCE IN PREDICTING GLOMERULAR FILTRATION RATE. ESTIMATED GFR IS NOT APPLICABLE FOR DIALYSIS PATIENTS. HEPATIC FUNCTION [id number] 07:47:00* Test Item Value Reference Range Comments TOTAL PROTEIN (BEAKER) (test mypn=113) 6.1 gm/dL 6.0-8.3 ALBUMIN (BEAKER) (test bmtd=5563) 3.1 g/dL 3.5-5.0 BILIRUBIN TOTAL (BEAKER) (test rzkc=566) 0.3 mg/dL 0.2-1.2 BILIRUBIN DIRECT (BEAKER) (test tbaf=110) 0.2 mg/dL 0.1-0.5 ALKALINE PHOSPHATASE (BEAKER) (test pvsy=442) 210 U/L 40-150 AST (SGOT) (BEAKER) (test gtep=626) 51 U/L 5-34 ALT (SGPT) (BEAKER) (test ufkz=777) 35 U/L 6-55 [id number] 07:18:00* Test Item Value Reference Range Comments PARTIAL THROMBOPLASTIN TIME (BEAKER) (test mwcm=312) 145.1 seconds 22.5-36.0 PROTHROMBIN TIME/[id number] 07:08:00* Test Item Value Reference Range Comments PROTIME (BEAKER) (test ujdh=985) 14.9 seconds 11.7-14.7 INR (BEAKER) (test uzbm=991) 1.2 <=5.9 RECOMMENDED COUMADIN/WARFARIN INR THERAPY RANGESSTANDARD DOSE: 2.0 - 3.0 Inclu eduar: PROPHYLAXIS for venous thrombosis, systemic embolization; TREATMENT for ania ous thrombosis and/or pulmonary embolus.HIGH RISK: Target INR is 2.5-3.5 for pat ients with mechanical heart valves.[id number] 21:38:00* Test Item Value Reference Range Comments PARTIAL THROMBOPLASTIN TIME (BEAKER) (test hmcc=228) 56.4 seconds 22.5-36.0 [id number] 12:38:00* Test Item Value Reference Range Comments D-DIMER QUANTITATIVE (BEAKER) (test brop=105) 6.38 MG/L FEU <0.50 Intended Use: The D-Dimer Assay can be used to aid in the diagnosis of Deep Vein Thrombosis (DVT) and Pulmonary Embolism Disease (PED).In patients with low pre- test probability, various studies concerning STA Liatest D-dimer test have repor jose luis that with a cutoff value of 0.50 MG/L FEU, the Negative Predictive Value (MORTGAGE ADVISOR V) regarding the exclusion of thrombosis is within 95-100% range.[id number] 12:32:00* Test Item Value Reference Range Comments PARTIAL THROMBOPLASTIN TIME (BEAKER) (test cmlj=541) 109.6 seconds 22.5-36.0 TACROLIMUS [id number] 10:59:00* Test Item Value Reference Range Comments TACROLIMUS BLOOD (BEAKER) (test dvcx=088) 5.7 ng/mL 10.0-20.0 HEPATIC FUNCTION [id number] 10:34:00* Test Item Value Reference Range Comments TOTAL PROTEIN (BEAKER) (test brdz=319) 6.1 gm/dL 6.0-8.3 ALBUMIN (BEAKER) (test ctwn=3490) 3.1 g/dL 3.5-5.0 BILIRUBIN TOTAL (BEAKER) (test jjgl=415) 0.4 mg/dL 0.2-1.2 BILIRUBIN DIRECT (BEAKER) (test jowb=208) 0.2 mg/dL 0.1-0.5 ALKALINE PHOSPHATASE (BEAKER) (test ungg=303) 224 U/L 40-150 AST (SGOT) (BEAKER) (test qrpj=628) 115 U/L 5-34 ALT (SGPT) (BEAKER) (test mjmm=700) 50 U/L 6-55 BASIC METABOLIC [id number] 06:43:00* Test Item Value Reference Range Comments SODIUM (BEAKER) (test dflj=512) 139 meq/L 136-145 POTASSIUM (BEAKER) (test zlot=809) 4.5 meq/L 3.5-5.1 CHLORIDE (BEAKER) (test arql=253) 108 meq/L 98-107 CO2 (BEAKER) (test mxah=086) 19 meq/L 22-29 BLOOD UREA NITROGEN (BEAKER) (test tdmv=466) 28 mg/dL 7-21 CREATININE (BEAKER) (test lysl=679) 1.99 mg/dL 0.57-1.25 GLUCOSE RANDOM (BEAKER) (test xjou=154) 88 mg/dL 70-105 CALCIUM (BEAKER) (test acio=393) 8.7 mg/dL 8.4-10.2 EGFR (BEAKER) (test oywq=4133) 25 mL/min/1.73 sq m ESTIMATED GFR IS NOT ACCURATE CREATININE CLEARANCE IN PREDICTING GLOMERULAR FILTRATION RATE. ESTIMATED GFR IS NOT APPLICABLE FOR DIALYSIS PATIENTS. [id number] 06:12:00* Test Item Value Reference Range Comments PARTIAL THROMBOPLASTIN TIME (BEAKER) (test ekwc=220) 49.6 seconds 22.5-36.0 PROTHROMBIN [id number] 06:11:00* Test Item Value Reference Range Comments PROTIME (BEAKER) (test andv=277) 14.1 seconds 11.7-14.7 INR (BEAKER) (test bnpz=703) 1.1 <=5.9 RECOMMENDED COUMADIN/WARFARIN INR THERAPY RANGESSTANDARD DOSE: 2.0 - 3.0 Inclu eduar: PROPHYLAXIS for venous thrombosis, systemic embolization; TREATMENT for ania ous thrombosis and/or pulmonary embolus.HIGH RISK: Target INR is 2.5-3.5 for pat ients with mechanical heart valves.[id number] 23:18:00* Test Item Value Reference Range Comments PARTIAL THROMBOPLASTIN TIME (BEAKER) (test tjji=837) 108.6 seconds 22.5-36.0 [id number] 16:13:00* Test Item Value Reference Range Comments PARTIAL THROMBOPLASTIN TIME (BEAKER) (test zdfu=123) 44.3 seconds 22.5-36.0 Prior to initiating heparinBASIC METABOLIC [id number] 08:50:00* Test Item Value Reference Range Comments SODIUM (BEAKER) (test kzhx=310) 139 meq/L 136-145 POTASSIUM (BEAKER) (test xcft=926) 4.5 meq/L 3.5-5.1 CHLORIDE (BEAKER) (test chyb=922) 109 meq/L 98-107 CO2 (BEAKER) (test mzgq=150) 16 meq/L 22-29 BLOOD UREA NITROGEN (BEAKER) (test xlkq=197) 30 mg/dL 7-21 CREATININE (BEAKER) (test dvzr=539) 1.98 mg/dL 0.57-1.25 GLUCOSE RANDOM (BEAKER) (test jknn=795) 78 mg/dL 70-105 CALCIUM (BEAKER) (test jooa=611) 9.3 mg/dL 8.4-10.2 EGFR (BEAKER) (test ffan=6956) 25 mL/min/1.73 sq m ESTIMATED GFR IS NOT ACCURATE CREATININE CLEARANCE IN PREDICTING GLOMERULAR FILTRATION RATE. ESTIMATED GFR IS NOT APPLICABLE FOR DIALYSIS PATIENTS. HEMOGLOBIN AND [id number] 07:01:00* Test Item Value Reference Range Comments HEMOGLOBIN (BEAKER) (test fdec=436) 10.5 GM/DL 11.2-15.7 HEMATOCRIT (BEAKER) (test rrmt=352) 35.5 % 34.1-44.9 PROTHROMBIN [id number] 06:45:00* Test Item Value Reference Range Comments PROTIME (BEAKER) (test nmes=607) 14.2 seconds 11.7-14.7 INR (BEAKER) (test wksw=404) 1.1 <=5.9 RECOMMENDED COUMADIN/WARFARIN INR THERAPY RANGESSTANDARD DOSE: 2.0 - 3.0 Inclu eduar: PROPHYLAXIS for venous thrombosis, systemic embolization; TREATMENT for ania ous thrombosis and/or pulmonary embolus.HIGH RISK: Target INR is 2.5-3.5 for pat ients with mechanical heart valves.URINALYSIS W/ REFLEX URINE [id number] 23:44:00* Test Item Value Reference Range Comments COLOR (BEAKER) (test cpuy=890) Yellow CLARITY (BEAKER) (test pnfw=976) Clear SPECIFIC GRAVITY UA (BEAKER) (test dbyq=833) 1.019 1.001-1.035 PH UA (BEAKER) (test updp=547) 5.0 5.0-8.0 PROTEIN UA (BEAKER) (test ijta=127) 10 mg/dL Negative GLUCOSE UA (BEAKER) (test aokh=826) Negative Negative KETONES UA (BEAKER) (test kooi=778) Negative Negative BILIRUBIN UA (BEAKER) (test okws=606) Negative Negative BLOOD UA (BEAKER) (test dros=113) Negative Negative NITRITE UA (BEAKER) (test dkrx=364) Negative Negative LEUKOCYTE ESTERASE UA (BEAKER) (test lwwx=595) Large Negative UROBILINOGEN UA (BEAKER) (test pmfo=755) 0.2 mg/dL 0.2-1.0 RBC UA (BEAKER) (test kuyd=435) 1 /HPF WBC UA (BEAKER) (test kfyl=650) 14 /HPF BACTERIA (BEAKER) (test exon=825) Rare MUCUS (BEAKER) (test qfof=9575) Rare SQUAMOUS EPITHELIAL (BEAKER) (test zeoc=200) 1 /HPF HYALINE CASTS (BEAKER) (test vtty=637) 19 /LPF AMORPHOUS CRYSTALS (BEAKER) (test heat=6387) Rare SOURCE(BEAKER) (test loah=4418) BASIC METABOLIC [id number] 20:13:00* Test Item Value Reference Range Comments SODIUM (BEAKER) (test kykf=722) 140 meq/L 136-145 POTASSIUM (BEAKER) (test xnrt=299) 4.4 meq/L 3.5-5.1 CHLORIDE (BEAKER) (test wndl=276) 110 meq/L 98-107 CO2 (BEAKER) (test gxlj=630) 19 meq/L 22-29 BLOOD UREA NITROGEN (BEAKER) (test llkj=121) 30 mg/dL 7-21 CREATININE (BEAKER) (test iwrt=167) 1.97 mg/dL 0.57-1.25 GLUCOSE RANDOM (BEAKER) (test vvoa=766) 94 mg/dL 70-105 CALCIUM (BEAKER) (test yfty=378) 9.2 mg/dL 8.4-10.2 EGFR (BEAKER) (test yelc=0582) 25 mL/min/1.73 sq m ESTIMATED GFR IS NOT ACCURATE CREATININE CLEARANCE IN PREDICTING GLOMERULAR FILTRATION RATE. ESTIMATED GFR IS NOT APPLICABLE FOR DIALYSIS PATIENTS. HEPATIC FUNCTION [id number] 20:07:00* Test Item Value Reference Range Comments TOTAL PROTEIN (BEAKER) (test lxis=261) 6.4 gm/dL 6.0-8.3 ALBUMIN (BEAKER) (test rtae=6042) 3.2 g/dL 3.5-5.0 BILIRUBIN TOTAL (BEAKER) (test ymmo=781) 0.3 mg/dL 0.2-1.2 BILIRUBIN DIRECT (BEAKER) (test ckky=911) 0.2 mg/dL 0.1-0.5 ALKALINE PHOSPHATASE (BEAKER) (test jukt=892) 121 U/L 40-150 AST (SGOT) (BEAKER) (test xyac=097) 18 U/L 5-34 ALT (SGPT) (BEAKER) (test bkki=012) 10 U/L 6-55 PROTHROMBIN TIME/[id number] 19:48:00* Test Item Value Reference Range Comments PROTIME (BEAKER) (test oujw=996) 14.5 seconds 11.7-14.7 INR (BEAKER) (test cows=535) 1.1 <=5.9 RECOMMENDED COUMADIN/WARFARIN INR THERAPY RANGESSTANDARD DOSE: 2.0 - 3.0 Inclu eduar: PROPHYLAXIS for venous thrombosis, systemic embolization; TREATMENT for ania ous thrombosis and/or pulmonary embolus.HIGH RISK: Target INR is 2.5-3.5 for pat ients with mechanical heart valves.[id number] 19:48:00* Test Item Value Reference Range Comments PARTIAL THROMBOPLASTIN TIME (BEAKER) (test pypr=779) 39.7 seconds 22.5-36.0 CBC W/PLT COUNT & AUTO [id number] 19:38:00* Test Item Value Reference Range Comments WHITE BLOOD CELL COUNT (BEAKER) (test xwbh=998) 4.9 K/ L 3.5-10.5 RED BLOOD CELL COUNT (BEAKER) (test bybd=597) 3.36 M/ L 3.93-5.22 HEMOGLOBIN (BEAKER) (test zjon=474) 9.3 GM/DL 11.2-15.7 HEMATOCRIT (BEAKER) (test uybh=013) 29.6 % 34.1-44.9 MEAN CORPUSCULAR VOLUME (BEAKER) (test fftu=971) 88.1 fL 79.4-94.8 MEAN CORPUSCULAR HEMOGLOBIN (BEAKER) (test jfto=210) 27.7 pg 25.6-32.2 MEAN CORPUSCULAR HEMOGLOBIN CONC (BEAKER) (test jxsq=292) 31.4 GM/DL 32.2-35.5 RED CELL DISTRIBUTION WIDTH (BEAKER) (test qkgq=189) 16.5 % 11.7-14.4 PLATELET COUNT (BEAKER) (test nepc=728) 182 K/CU MM 150-450 MEAN PLATELET VOLUME (BEAKER) (test efsu=707) 11.4 fL 9.4-12.3 NUCLEATED RED BLOOD CELLS (BEAKER) (test cfrs=291) 0 /100 WBC 0-0 NEUTROPHILS RELATIVE PERCENT (BEAKER) (test qyio=073) 52 % LYMPHOCYTES RELATIVE PERCENT (BEAKER) (test bxkd=244) 26 % MONOCYTES RELATIVE PERCENT (BEAKER) (test qaru=124) 13 % EOSINOPHILS RELATIVE PERCENT (BEAKER) (test kjzh=423) 8 % BASOPHILS RELATIVE PERCENT (BEAKER) (test xvzp=338) 1 % NEUTROPHILS ABSOLUTE COUNT (BEAKER) (test jxfr=536) 2.53 K/ L 1.56-6.13 LYMPHOCYTES ABSOLUTE COUNT (BEAKER) (test ohqe=546) 1.28 K/ L 1.18-3.74 MONOCYTES ABSOLUTE COUNT (BEAKER) (test fkos=807) 0.61 K/ L 0.24-0.36 EOSINOPHILS ABSOLUTE COUNT (BEAKER) (test hdgr=022) 0.37 K/ L 0.04-0.36 BASOPHILS ABSOLUTE COUNT (BEAKER) (test fmfg=110) 0.04 K/ L 0.01-0.08 IMMATURE GRANULOCYTES-RELATIVE PERCENT (BEAKER) (test ceeb=4151) 0 % 0-1 COMPREHENSIVE METABOLIC [id number] 13:03:00* Test Item Value Reference Range Comments TOTAL PROTEIN (BEAKER) (test nwoo=895) 7.0 gm/dL 6.0-8.3 ALBUMIN (BEAKER) (test fjsr=6676) 3.5 g/dL 3.5-5.0 ALKALINE PHOSPHATASE (BEAKER) (test tknf=799) 130 U/L 40-150 BILIRUBIN TOTAL (BEAKER) (test turf=258) 0.4 mg/dL 0.2-1.2 SODIUM (BEAKER) (test losk=344) 137 meq/L 136-145 POTASSIUM (BEAKER) (test isya=051) 4.3 meq/L 3.5-5.1 CHLORIDE (BEAKER) (test fzsg=711) 106 meq/L 98-107 CO2 (BEAKER) (test ywlm=943) 18 meq/L 22-29 BLOOD UREA NITROGEN (BEAKER) (test xxge=060) 28 mg/dL 7-21 CREATININE (BEAKER) (test ptdc=073) 1.99 mg/dL 0.57-1.25 GLUCOSE RANDOM (BEAKER) (test nqge=402) 87 mg/dL 70-105 CALCIUM (BEAKER) (test vxya=714) 9.1 mg/dL 8.4-10.2 AST (SGOT) (BEAKER) (test leny=414) 21 U/L 5-34 ALT (SGPT) (BEAKER) (test wtit=081) 11 U/L 6-55 EGFR (BEAKER) (test fqdi=0212) 25 mL/min/1.73 sq m ESTIMATED GFR IS NOT ACCURATE CREATININE CLEARANCE IN PREDICTING GLOMERULAR FILTRATION RATE. ESTIMATED GFR IS NOT APPLICABLE FOR DIALYSIS PATIENTS. [id number] 13:02:00* Test Item Value Reference Range Comments MAGNESIUM (BEAKER) (test hoel=759) 1.7 mg/dL 1.6-2.6 LIPID [id number] 13:02:00* Test Item Value Reference Range Comments TRIGLYCERIDES (BEAKER) (test tuua=076) 199 mg/dL CHOLESTEROL (BEAKER) (test kduh=333) 177 mg/dL HDL CHOLESTEROL (BEAKER) (test qvvp=285) 37 mg/dL LDL CHOLESTEROL CALCULATED (AKER) (test skki=682) 100 mg/dL Triglyceride Reference Range: Low Risk <150 Borderline 150-199 High Risk 200-499 Very High Risk >=500Cholesterol Reference Range: Low Risk <200 Borderline 200-239 High Risk >240HDL Cholesterol Reference Range: Low Risk >=60 High Risk <40LDL Cholesterol Reference Range: Optimal <100 Near Optimal 100-129 Borderline 130-159 High 160-189 Very High >=190 BILIRUBIN, [id number] 13:02:00* Test Item Value Reference Range Comments BILIRUBIN DIRECT (BEMITCHEL) (test dawc=218) 0.2 mg/dL 0.1-0.5 HEPATITIS C [id number] 12:52:00* Test Item Value Reference Range Comments HEPATITIS C ANTIBODY (AVELINA) (test tbqo=269) Nonreactive Nonreactive U/S, ABDOMINAL, WITH [id number] 12:50:00Doppler Study to evaluate Hepatic vesselsDoppler study to Evaluate hepatic vessels;Post OLTReason for Exam:-> evaluate hepatic vessels; Post OLT Hx: HCCFINAL REPORT Ultrasound of the Abdomen and Duplex Doppler. TECHNIQUE: Sonographic assessment of the abdomen was performed as well as a detailed duplex Doppler assessment of the liver including spectral wave forms and color-flow analysis of the major vascular structures. Clinical History: evaluate hepatic vessels; Post OLT Hx: HCC. Comparison study: December 17, 2016. Findings: The transplant liver is echogenic in echotexture with no focal masses. It measures 14.4 cm in length. There is no evidence of intra or extrahepatic biliary dilatation with the common bile duct measuring four mm. The main portal vein diameter is 1.3 cm. An area of narrowing is seen at the anastomosis where it measures 3 mm. The gallbladder is absent. The spleen measures 11.0 cm, unremarkable. The pancreas is not well seen. No ascites is present. The right kidney measures 8.7 cm and left kidney measures 8.0 cm, both small in size. No pleural effusions are seen. The proximal aorta and IVC are unremarkable. Doppler interrogation of the liver demonstrates a main portal vein diameter measuring 1.3 cm with a peak systolic velocity of 22 cm/sec. However, at the anastomosis increased velocity is seen at 95 cm/s. Hepatopetal inflow is seen in the right, left, main portal and splenic veins. The resistive indices in the proper and right hepatic arteries are 0.6 and 0.5 respectively. The left hepatic artery could not be seen. Outflow with appropriate directionality is seen in the IVC, hepatic venous confluence as well as the right, middle and left hepatic veins. Impression: 1. Echogenic transplant liver. No focal masses are seen.2. Pancreas obscured from view.3. Area of portal venous anastomotic narrowing with increased velocity at 95 cm/s.4. Small sized kidneys.5. Left hepatic artery not seen. Signed: Juan David Almeida MDReport Verified Date/Time: 09/16/2017 12:50:38 Reading Location: [address] Reading Room Electronically signed by: JUAN DAVID ALMEIDA M.D. on 8 12:50 PM TACROLIMUS [id number] 11:30:00* Test Item Value Reference Range Comments TACROLIMUS BLOOD (BEAKER) (test didi=633) 7.0 ng/mL 10.0-20.0 RAD, CHEST, 2 [id number] 11:18:00PA and Lateral for Liver TransplantReason for Exam:->annual psot OLTFINAL REPORT Chest, 2 views. Clinical History: annual psot OLT Comparison Study: August 16, 2017 Findings: A stable 8 mm calcified nodule is seen in the left midlung. Mild elevation of the right hemidiaphragm remains. The heart and lungs are otherwise within normal limits. The pleural spaces are clear. No significant bony or soft tissue abnormalities are seen. Impression: No active cardiopulmonary disease. Signed: Juan David Almeida MDReport Verified Date/Time: 09/16/2017 11:18:02 Reading Location: [address] Radiology Reading Room W/PLT COUNT & AUTO DIFFERENTIAL 2017-09-16 10:10:00* Test Item Value Reference Range Comments WHITE BLOOD CELL COUNT (BEAKER) (test echa=744) 5.5 K/ L 3.5-10.5 RED BLOOD CELL COUNT (BEAKER) (test uerw=871) 3.81 M/ L 3.93-5.22 HEMOGLOBIN (BEAKER) (test uqxv=783) 10.4 GM/DL 11.2-15.7 HEMATOCRIT (BEAKER) (test nqaz=866) 34.1 % 34.1-44.9 MEAN CORPUSCULAR VOLUME (BEAKER) (test bpas=185) 89.5 fL 79.4-94.8 MEAN CORPUSCULAR HEMOGLOBIN (BEAKER) (test zzgt=460) 27.3 pg 25.6-32.2 MEAN CORPUSCULAR HEMOGLOBIN CONC (BEAKER) (test wouk=957) 30.5 GM/DL 32.2-35.5 RED CELL DISTRIBUTION WIDTH (BEAKER) (test zjkb=588) 16.6 % 11.7-14.4 PLATELET COUNT (BEAKER) (test hkaf=916) 187 K/CU MM 150-450 MEAN PLATELET VOLUME (BEAKER) (test ezpw=661) 11.9 fL 9.4-12.3 NUCLEATED RED BLOOD CELLS (BEAKER) (test weog=589) 0 /100 WBC 0-0 NEUTROPHILS RELATIVE PERCENT (BEAKER) (test sfxj=160) 57 % LYMPHOCYTES RELATIVE PERCENT (BEAKER) (test bphf=219) 20 % MONOCYTES RELATIVE PERCENT (BEAKER) (test vanp=868) 14 % EOSINOPHILS RELATIVE PERCENT (BEAKER) (test akms=037) 8 % BASOPHILS RELATIVE PERCENT (BEAKER) (test pklq=511) 1 % NEUTROPHILS ABSOLUTE COUNT (BEAKER) (test mqxz=522) 3.10 K/ L 1.56-6.13 LYMPHOCYTES ABSOLUTE COUNT (BEAKER) (test bpan=832) 1.10 K/ L 1.18-3.74 MONOCYTES ABSOLUTE COUNT (BEAKER) (test pkvk=454) 0.74 K/ L 0.24-0.36 EOSINOPHILS ABSOLUTE COUNT (BEAKER) (test fqhu=407) 0.46 K/ L 0.04-0.36 BASOPHILS ABSOLUTE COUNT (BEAKER) (test dovz=055) 0.04 K/ L 0.01-0.08 IMMATURE GRANULOCYTES-RELATIVE PERCENT (BEAKER) (test kird=1003) 1 % 0-1 TISSUE [id number] 10:36:00Surgical Pathology Report Case: [id number] Authorizing Provider: Lila Springer Collected: 08/21/2017 1139 MD Tate Ordering Location: [facility] Endoscopy Received: 08/21/2017 1400 Services Pathologist: Leonarda Childs MD Specimen: Biopsy, Gastric, random r/o gastriis STOMACH, BIOPSY- CHRONIC INACTIVE GASTRITIS- NEGATIVE FOR HELICOBACTER ON WARTHIN-STARRY STAIN Signing Pathologist Direct Phone Line: [phone] signed by Leonarda Childs MD on 08/23/2017 at 10:36 [id number], [id number] difficulties, hiatal hernia, rule out gastritisGastric biopsyThe specimen is received in a formalin-filled container and labeled with the patient's information labeled "gastric biopsy" and consists of a 0.2 cm fragment of hardy-white soft tissue, submitted A1. CG/pl Performed.RAD, ANKLE, MIN 3 VIEWS, [id number] 08:30:00Reason for exam:->LEG PAINReason for exam:->LEG SWELLINGFINAL REPORT RIGHT ANKLE 3 VIEWS HISTORY: Right ankle swelling COMPARISON: None FINDINGS: AP, mortise, and lateral views the right ankle were performed. No fracture, dislocation, or bony abnormality identified in the right ankle. There is subcutaneous edema throughout the imaged leg and ankle, most prominent in the lateral aspect of the ankle where moderate soft tissue swelling is noted. No soft tissue gas or radiopaque foreign body are identified. IMPRESSION: 1. No fracture or bony abnormality are visualized in the right ankle. 2. Soft tissue swelling, most prominent laterally. Signed: Mario Sosa Verified Date/Time: 08/16/2017 08:30:32 Reading Location: [facility] Radiology Reading Room , CHEST, 2 [id number] 08:28:00Reason for exam:-> chest painFINAL REPORT History: Chest pain Comparison: 08/04/2017 Findings: Small left pleural effusion. Stable 9 mm calcified granuloma in the left lower lobe. Lungs otherwise clear. No pneumothorax. The heart shadow is normal in size. The thoracic aorta is mildly tortuous. Degenerative changes are present in the spine. A moderate-sized hiatal hernia projects in the retrocardiac region. Impression: Small left pleural effusion. Signed: Mario Sosa Verified Date/Time: 08/16/2017 08:28:45 Reading Location: [facility] Radiology Reading Room OLIMUS [id number] 10:47:00* Test Item Value Reference Range Comments TACROLIMUS BLOOD (BEAKER) (test aczu=051) 11.2 ng/mL 10.0-20.0 URINE [id number] 10:36:00* Test Item Value Reference Range Comments CULTURE (BEAKER) (test rwjz=9379) >100,000 col/mL Coagulase negative Staphylococcus CULTURE (BEAKER) (test cwnd=6369) ENTEROCOCCUS SPECIES >100,000 col/mL Nae glabrata Ampicillin (test code=26) Linezolid (test code=40) Nitrofurantoin (test code=23) Tetracycline (test code=2) Vancomycin (test code=13) CULTURE (BEAKER) (test xhdm=0852) COAGULASE NEGATIVE STAPHYLOCOCCUS >100,000 col/mL Enterococcus species Clindamycin (test code=10) Erythromycin (test code=4) Levofloxacin (test code=22) Linezolid (test code=40) Nitrofurantoin (test code=23) Oxacillin (test code=14) Rifampin (test code=43) Tetracycline (test code=2) Trimethoprim + Sulfamethoxazole (test code=47) Vancomycin (test code=13) BASIC METABOLIC [id number] 07:18:00* Test Item Value Reference Range Comments SODIUM (BEAKER) (test qcyy=219) 134 meq/L 136-145 POTASSIUM (BEAKER) (test eojg=356) 4.6 meq/L 3.5-5.1 CHLORIDE (BEAKER) (test ewsk=533) 107 meq/L 98-107 CO2 (BEAKER) (test cukc=843) 17 meq/L 22-29 BLOOD UREA NITROGEN (BEAKER) (test mhhn=593) 33 mg/dL 7-21 CREATININE (BEAKER) (test sntd=779) 3.16 mg/dL 0.57-1.25 GLUCOSE RANDOM (BEAKER) (test yyno=904) 78 mg/dL 70-105 CALCIUM (BEAKER) (test clqi=719) 8.3 mg/dL 8.4-10.2 EGFR (BEAKER) (test pgmd=5855) 15 mL/min/1.73 sq m ESTIMATED GFR IS NOT ACCURATE CREATININE CLEARANCE IN PREDICTING GLOMERULAR FILTRATION RATE. ESTIMATED GFR IS NOT APPLICABLE FOR DIALYSIS PATIENTS. URIC [id number] 07:15:00* Test Item Value Reference Range Comments URIC ACID (BEAKER) (test npix=202) 12.8 mg/dL 2.6-7.2 [id number] 07:15:00* Test Item Value Reference Range Comments MAGNESIUM (BEAKER) (test xmlo=380) 1.8 mg/dL 1.6-2.6 [id number] 07:15:00* Test Item Value Reference Range Comments PHOSPHORUS (BEAKER) (test lyaw=381) 4.7 mg/dL 2.3-4.7 HEPATIC FUNCTION [id number] 07:15:00* Test Item Value Reference Range Comments TOTAL PROTEIN (BEAKER) (test xoth=653) 4.8 gm/dL 6.0-8.3 ALBUMIN (BEAKER) (test majq=0856) 2.8 g/dL 3.5-5.0 BILIRUBIN TOTAL (BEAKER) (test yzvo=446) 0.3 mg/dL 0.2-1.2 BILIRUBIN DIRECT (BEAKER) (test hvsh=515) 0.2 mg/dL 0.1-0.5 ALKALINE PHOSPHATASE (BEAKER) (test ssrn=546) 108 U/L 40-150 AST (SGOT) (BEAKER) (test ligs=227) 19 U/L 5-34 ALT (SGPT) (BEAKER) (test azxu=644) 12 U/L 6-55 URIC [id number] 12:59:00* Test Item Value Reference Range Comments URIC ACID (BEAKER) (test cqrd=878) 12.2 mg/dL 2.6-7.2 TACROLIMUS [id number] 09:11:00* Test Item Value Reference Range Comments TACROLIMUS BLOOD (BEAKER) (test iziz=703) 9.5 ng/mL 10.0-20.0 BASIC METABOLIC [id number] 07:14:00* Test Item Value Reference Range Comments SODIUM (BEAKER) (test gsoq=270) 134 meq/L 136-145 POTASSIUM (BEAKER) (test lnqv=634) 4.3 meq/L 3.5-5.1 CHLORIDE (BEAKER) (test jura=349) 108 meq/L 98-107 CO2 (BEAKER) (test pnwo=445) 15 meq/L 22-29 BLOOD UREA NITROGEN (BEAKER) (test jdcf=368) 30 mg/dL 7-21 CREATININE (BEAKER) (test pqkm=591) 3.46 mg/dL 0.57-1.25 GLUCOSE RANDOM (BEAKER) (test jhks=269) 78 mg/dL 70-105 CALCIUM (BEAKER) (test wzfr=394) 8.1 mg/dL 8.4-10.2 EGFR (BEAKER) (test pjdk=1447) 13 mL/min/1.73 sq m ESTIMATED GFR IS NOT ACCURATE CREATININE CLEARANCE IN PREDICTING GLOMERULAR FILTRATION RATE. ESTIMATED GFR IS NOT APPLICABLE FOR DIALYSIS PATIENTS. [id number] 07:12:00* Test Item Value Reference Range Comments PHOSPHORUS (BEAKER) (test ifuv=020) 5.0 mg/dL 2.3-4.7 [id number] 07:12:00* Test Item Value Reference Range Comments MAGNESIUM (BEAKER) (test euaj=805) 1.6 mg/dL 1.6-2.6 HEPATIC FUNCTION [id number] 07:12:00* Test Item Value Reference Range Comments TOTAL PROTEIN (BEAKER) (test nmoa=496) 4.9 gm/dL 6.0-8.3 ALBUMIN (BEAKER) (test wmjd=1206) 2.9 g/dL 3.5-5.0 BILIRUBIN TOTAL (BEAKER) (test ccrj=109) 0.3 mg/dL 0.2-1.2 BILIRUBIN DIRECT (BEAKER) (test jhuv=967) 0.2 mg/dL 0.1-0.5 ALKALINE PHOSPHATASE (BEAKER) (test yiej=387) 101 U/L 40-150 AST (SGOT) (BEAKER) (test gerw=446) 24 U/L 5-34 ALT (SGPT) (BEAKER) (test nuwp=428) 14 U/L 6-55 BASIC METABOLIC [id number] 12:15:00* Test Item Value Reference Range Comments SODIUM (BEAKER) (test bwfm=715) 133 meq/L 136-145 POTASSIUM (BEAKER) (test sbjd=513) 4.0 meq/L 3.5-5.1 CHLORIDE (BEAKER) (test vgex=431) 106 meq/L 98-107 CO2 (BEAKER) (test iwjn=505) 17 meq/L 22-29 BLOOD UREA NITROGEN (BEAKER) (test khcp=000) 30 mg/dL 7-21 CREATININE (BEAKER) (test xbja=998) 4.21 mg/dL 0.57-1.25 GLUCOSE RANDOM (BEAKER) (test bxia=039) 77 mg/dL 70-105 CALCIUM (BEAKER) (test txiq=716) 7.9 mg/dL 8.4-10.2 EGFR (BEAKER) (test oiks=4034) 10 mL/min/1.73 sq m ESTIMATED GFR IS NOT ACCURATE CREATININE CLEARANCE IN PREDICTING GLOMERULAR FILTRATION RATE. ESTIMATED GFR IS NOT APPLICABLE FOR DIALYSIS PATIENTS. [id number] 12:08:00* Test Item Value Reference Range Comments PHOSPHORUS (BEAKER) (test rojd=210) 5.3 mg/dL 2.3-4.7 [id number] 12:08:00* Test Item Value Reference Range Comments MAGNESIUM (BEAKER) (test aojy=478) 1.8 mg/dL 1.6-2.6 TACROLIMUS [id number] 11:49:00* Test Item Value Reference Range Comments TACROLIMUS BLOOD (BEAKER) (test nggs=391) 8.0 ng/mL 10.0-20.0 HEPATIC FUNCTION [id number] 07:45:00* Test Item Value Reference Range Comments TOTAL PROTEIN (BEAKER) (test swrt=137) 4.7 gm/dL 6.0-8.3 ALBUMIN (BEAKER) (test rvcf=3067) 2.9 g/dL 3.5-5.0 BILIRUBIN TOTAL (BEAKER) (test cydq=016) 0.3 mg/dL 0.2-1.2 BILIRUBIN DIRECT (BEAKER) (test mfrz=043) 0.2 mg/dL 0.1-0.5 ALKALINE PHOSPHATASE (BEAKER) (test cisf=739) 88 U/L 40-150 AST (SGOT) (BEAKER) (test xfpb=896) 22 U/L 5-34 ALT (SGPT) (BEAKER) (test amca=475) 11 U/L 6-55 TACROLIMUS [id number] 09:04:00* Test Item Value Reference Range Comments TACROLIMUS BLOOD (BEAKER) (test tssc=757) 7.5 ng/mL 10.0-20.0 CBC W/PLT COUNT & AUTO [id number] 07:48:00* Test Item Value Reference Range Comments WHITE BLOOD CELL COUNT (BEAKER) (test qiof=576) 5.7 K/ L 3.5-10.5 RED BLOOD CELL COUNT (BEAKER) (test mmcd=116) 2.88 M/ L 3.93-5.22 HEMOGLOBIN (BEAKER) (test vvsi=871) 8.2 GM/DL 11.2-15.7 HEMATOCRIT (BEAKER) (test ldox=171) 26.0 % 34.1-44.9 MEAN CORPUSCULAR VOLUME (BEAKER) (test ydnn=952) 90.3 fL 79.4-94.8 MEAN CORPUSCULAR HEMOGLOBIN (BEAKER) (test cmct=237) 28.5 pg 25.6-32.2 MEAN CORPUSCULAR HEMOGLOBIN CONC (BEAKER) (test wfpb=784) 31.5 GM/DL 32.2-35.5 RED CELL DISTRIBUTION WIDTH (BEAKER) (test nvar=276) 18.6 % 11.7-14.4 PLATELET COUNT (BEAKER) (test rcjc=831) 174 K/CU MM 150-450 MEAN PLATELET VOLUME (BEAKER) (test mzwb=412) 10.8 fL 9.4-12.3 NUCLEATED RED BLOOD CELLS (BEAKER) (test ahwj=741) 0 /100 WBC 0-0 NEUTROPHILS RELATIVE PERCENT (BEAKER) (test jsrs=393) 60 % LYMPHOCYTES RELATIVE PERCENT (BEAKER) (test twtn=134) 17 % MONOCYTES RELATIVE PERCENT (BEAKER) (test swys=908) 9 % EOSINOPHILS RELATIVE PERCENT (BEAKER) (test timd=114) 13 % BASOPHILS RELATIVE PERCENT (BEAKER) (test bfxt=003) 1 % NEUTROPHILS ABSOLUTE COUNT (BEAKER) (test rddt=427) 3.43 K/ L 1.56-6.13 LYMPHOCYTES ABSOLUTE COUNT (BEAKER) (test oxxi=307) 0.96 K/ L 1.18-3.74 MONOCYTES ABSOLUTE COUNT (BEAKER) (test mmov=693) 0.54 K/ L 0.24-0.36 EOSINOPHILS ABSOLUTE COUNT (BEAKER) (test oykm=545) 0.76 K/ L 0.04-0.36 BASOPHILS ABSOLUTE COUNT (BEAKER) (test yknq=164) 0.03 K/ L 0.01-0.08 IMMATURE GRANULOCYTES-RELATIVE PERCENT (BEAKER) (test vkkq=0136) 0 % 0-1 BASIC METABOLIC [id number] 07:43:00* Test Item Value Reference Range Comments SODIUM (BEAKER) (test pktw=888) 133 meq/L 136-145 POTASSIUM (BEAKER) (test mgun=039) 4.6 meq/L 3.5-5.1 CHLORIDE (BEAKER) (test wvaz=358) 106 meq/L 98-107 CO2 (BEAKER) (test ctfp=425) 15 meq/L 22-29 BLOOD UREA NITROGEN (BEAKER) (test mhzc=788) 29 mg/dL 7-21 CREATININE (BEAKER) (test kdyi=410) 4.35 mg/dL 0.57-1.25 GLUCOSE RANDOM (BEAKER) (test nvlg=635) 86 mg/dL 70-105 CALCIUM (BEAKER) (test nihu=501) 7.9 mg/dL 8.4-10.2 EGFR (BEAKER) (test rikb=2702) 10 mL/min/1.73 sq m ESTIMATED GFR IS NOT ACCURATE CREATININE CLEARANCE IN PREDICTING GLOMERULAR FILTRATION RATE. ESTIMATED GFR IS NOT APPLICABLE FOR DIALYSIS PATIENTS. HEPATIC FUNCTION [id number] 07:28:00* Test Item Value Reference Range Comments TOTAL PROTEIN (BEAKER) (test zrcx=419) 4.9 gm/dL 6.0-8.3 ALBUMIN (BEAKER) (test srla=8964) 2.9 g/dL 3.5-5.0 BILIRUBIN TOTAL (BEAKER) (test ikzp=794) 0.4 mg/dL 0.2-1.2 BILIRUBIN DIRECT (BEAKER) (test erkp=251) 0.2 mg/dL 0.1-0.5 ALKALINE PHOSPHATASE (BEAKER) (test xacl=289) 83 U/L 40-150 AST (SGOT) (BEAKER) (test eqtz=957) 16 U/L 5-34 ALT (SGPT) (BEAKER) (test myfm=794) 12 U/L 6-55 RAD, CHEST, 2 [id number] 00:43:00Reason for exam:->SIRS, Hx of COPDFINAL REPORT EXAMINATION: 2 view chest CLINICAL INDICATION: COPD, SIRS IMPRESSION: Compared with 08/04/2017, 1438 hours. Tip of the right upper extremity central line projects over the superior vena cava. The heart is mildly enlarged but stable. The relatively large lung volumes and apical radiolu cency are compatible with obstructive lung disease/emphysema. A small calcified granuloma is again noted at the left lung base. Thin curvilinear opacities are n oted in the perihilar regions and lung bases. Scarring and/or atelectasis favore d given the morphology, distribution and relative stability. However an underlyi ng pneumonia cannot be excluded. On the lateral view, mild soft tissue fullness is noted in the retrocardiac space, nonspecific but possibly reflecting a small to moderate hiatal hernia. No evidence of an acute osseous abnormality or pneumo thorax. Chest CT could be performed for further evaluation if warranted. Signed: Jacque Suarezeport Verified Date/Time: 08/05/2017 00:43:22 Reading Location: [address] Reading Room U/S, RENAL, [id number] 23:33:00Reason for exam:->gabi in pt with liver transplant.FINAL REPORT U/S, RENAL, COMPLETE CLINICAL INDICATION: "gabi in pt with liver transplant." COMPARISON: CT abdomen and pelvis 07/19/2017 TECHNIQUE: The kidneys and urinary bladder were evaluated using real time mueller scale and color Doppler sonography. FINDINGS:Right kidney: Normal morphology without stone, mass or hydronephrosis. Left kidney: Normal morphology without stone, mass or hydronephrosis. Renal Vasculature: Doppler interrogation reveals preserved vascular flow in the main renal arteries and veins bilaterally. The visualized portions of the abdominal aorta and IVC are unremarkable. Urinary bladder: Unremarkable. IMPRESSION: Unremarkable renal ultrasound. Signed: Albertina Lemus MDReport Verified Date/Time: 08/04/2017 23:33:22 Reading Location: [facility] B1 C013X Ortho Consult Reading Room NOPHIL SMEAR, [id number] 22:47:00* Test Item Value Reference Range Comments EOSINOPHIL SMEAR, URINE (BEAKER) (test pqay=0581) Rare EOS=less than 5% WBCs seen are EOS No EOS seen Many budding, branching yeast seen on stained smear.OSMOLALITY, [id number] 22:09:00* Test Item Value Reference Range Comments OSMOLALITY URINE (BEAKER) (test hvka=056) 323 mOsm/kg 40-1400 URINALYSIS W/ [id number] 22:04:00* Test Item Value Reference Range Comments COLOR (BEAKER) (test lhac=803) Yellow CLARITY (BEAKER) (test kajv=973) Hazy SPECIFIC GRAVITY UA (BEAKER) (test nlrw=417) 1.021 1.001-1.035 PH UA (BEAKER) (test ercg=800) 5.0 5.0-8.0 PROTEIN UA (BEAKER) (test hewd=340) 30 mg/dL Negative GLUCOSE UA (BEAKER) (test cwwz=072) Negative Negative KETONES UA (BEAKER) (test ccqf=093) Negative Negative BILIRUBIN UA (BEAKER) (test xmrv=752) Positive Negative BLOOD UA (BEAKER) (test mgnq=032) Negative Negative NITRITE UA (BEAKER) (test yqzf=050) Negative Negative LEUKOCYTE ESTERASE UA (BEAKER) (test jzyk=175) Moderate Negative UROBILINOGEN UA (BEAKER) (test slyb=130) 0.2 mg/dL 0.2-1.0 RBC UA (BEAKER) (test yqzr=068) 1 /HPF WBC UA (BEAKER) (test iwbr=673) 11 /HPF BACTERIA (BEAKER) (test klqj=990) Rare MUCUS (BEAKER) (test zhct=9518) Occasional SQUAMOUS EPITHELIAL (BEAKER) (test qzse=374) 36 /HPF HYALINE CASTS (BEAKER) (test bhrz=047) 46 /LPF YEAST (BEAKER) (test gnad=1376) Many SOURCE(BEAKER) (test cabd=9431) Urine, Voided CHLORIDE, RANDOM [id number] 22:01:00* Test Item Value Reference Range Comments CHLORIDE URINE (BEAKER) (test dkft=718) 20 meq/L Reference Range: No NormalsPOTASSIUM, RANDOM [id number] 22:01:00* Test Item Value Reference Range Comments POTASSIUM URINE (BEAKER) (test vfbz=817) 33.7 meq/L Reference Range: No NormalsPROTEIN, RANDOM [id number] 22:01:00* Test Item Value Reference Range Comments PROTEIN, URINE (BEAKER) (test efom=8568) 34 mg/dL 0-14 SODIUM, RANDOM [id number] 22:01:00* Test Item Value Reference Range Comments SODIUM URINE (BEAKER) (test doom=110) 59 meq/L Reference Range: No NormalsCREATININE, RANDOM [id number] 22:01:00* Test Item Value Reference Range Comments CREATININE URINE (BEAKER) (test bxwc=220) 255.9 mg/dL Reference Range: No NormalsPOCT-GLUCOSE [id number] 19:16:00* Test Item Value Reference Range Comments POC-GLUCOSE METER (BEAKER) (test zyfz=2277) 120 mg/dL 70-110 TESTED AT [place] [address] [facility] [address] RAD, CHEST, 1 VIEW, NON [id number] 15:22:00Reason for exam:->shortness of breath.Should this be performed at the bedside?->YesFINAL REPORT INDICATION: shortness of breath. COMPARISON: July 22, 2017 TECHNIQUE: Chest radiograph, single view, portable technique. FINDINGS / IMPRESSION: There is improved aeration of the left lung base. No consolidation, pulmonary edema, pneumothorax, or pleural effusion demonstrated. Right PICC line again noted. Signed: Adria Turner MDReport Verified Date/Time: 08/04/2017 15:22:59 Reading Location: [facility] C013X Ortho Consult Reading Room El ectronically signed by: ADRIA TURNER M.D. on 08/04/2017 03:22 PM CBC W/PLT COUNT & AUTO [id number] 12:15:00* Test Item Value Reference Range Comments WHITE BLOOD CELL COUNT (BEAKER) (test pyig=465) 9.2 K/ L 3.5-10.5 RED BLOOD CELL COUNT (BEAKER) (test hfvr=867) 3.20 M/ L 3.93-5.22 HEMOGLOBIN (BEAKER) (test voqq=244) 9.0 GM/DL 11.2-15.7 HEMATOCRIT (BEAKER) (test uueb=673) 28.6 % 34.1-44.9 MEAN CORPUSCULAR VOLUME (BEAKER) (test vfnc=108) 89.4 fL 79.4-94.8 MEAN CORPUSCULAR HEMOGLOBIN (BEAKER) (test bwrw=755) 28.1 pg 25.6-32.2 MEAN CORPUSCULAR HEMOGLOBIN CONC (BEAKER) (test uvwt=843) 31.5 GM/DL 32.2-35.5 RED CELL DISTRIBUTION WIDTH (BEAKER) (test wcji=296) 18.5 % 11.7-14.4 PLATELET COUNT (BEAKER) (test dpzn=712) 251 K/CU MM 150-450 MEAN PLATELET VOLUME (BEAKER) (test tuwk=033) 10.8 fL 9.4-12.3 NUCLEATED RED BLOOD CELLS (BEAKER) (test inbv=864) 0 /100 WBC 0-0 IMMATURE GRANULOCYTES-RELATIVE PERCENT (BEAKER) (test rxmy=0072) 1 % 0-1 (MANUAL DIFFERENTIAL)2017-08-04 12:15:00* Test Item Value Reference Range Comments NEUTROPHILS - REL (DIFF) (BEAKER) (test unff=5966) 76 % LYMPHOCYTES - REL (DIFF) (BEAKER) (test shmy=8213) 9 % MONOCYTES - REL (DIFF) (BEAKER) (test jlge=3438) 13 % EOSINOPHILS - REL (DIFF) (BEAKER) (test tetx=8008) 1 % BASOPHILS - REL (DIFF) (BEAKER) (test sgvi=1993) 1 % NEUTROPHILS - ABS (DIFF) (BEAKER) (test edww=2959) 6.99 K/ L 1.80-8.00 LYMPHOCYTES - ABS (DIFF) (BEAKER) (test gwid=2534) 0.83 K/ L 1.48-4.50 MONOCYTES - ABS (DIFF) (BEAKER) (test ityf=9196) 1.20 K/ L 0.00-1.30 EOSINOPHILS - ABS (DIFF) (BEAKER) (test vfgu=0564) 0.09 K/ L 0.00-0.50 BASOPHILS - ABS (DIFF) (BEAKER) (test aqos=6209) 0.09 K/ L 0.00-0.20 TOTAL COUNTED (BEAKER) (test oqud=8576) 100 WBC MORPHOLOGY (BEAKER) (test nyuv=451) Normal PLT MORPHOLOGY (BEAKER) (test qgaz=256) Normal RBC MORPHOLOGY (BEAKER) (test lgkb=681) Normal BASIC METABOLIC [id number] 11:34:00* Test Item Value Reference Range Comments SODIUM (BEAKER) (test taxr=639) 132 meq/L 136-145 POTASSIUM (BEAKER) (test jbji=557) 5.1 meq/L 3.5-5.1 CHLORIDE (BEAKER) (test oxfd=839) 107 meq/L 98-107 CO2 (BEAKER) (test kvud=011) 14 meq/L 22-29 BLOOD UREA NITROGEN (BEAKER) (test qwao=280) 25 mg/dL 7-21 CREATININE (BEAKER) (test znyp=333) 4.13 mg/dL 0.57-1.25 GLUCOSE RANDOM (BEAKER) (test qcof=300) 207 mg/dL 70-105 CALCIUM (BEAKER) (test asfy=743) 7.8 mg/dL 8.4-10.2 EGFR (BEAKER) (test odpo=9732) 11 mL/min/1.73 sq m ESTIMATED GFR IS NOT ACCURATE CREATININE CLEARANCE IN PREDICTING GLOMERULAR FILTRATION RATE. ESTIMATED GFR IS NOT APPLICABLE FOR DIALYSIS PATIENTS. Please get STAT BMP one hour after giving pt llast dose of albuteral inhalation. Call result to me at [phone].OSMOLALITY, [id number] 11:27:00* Test Item Value Reference Range Comments OSMOLALITY, SERUM (BEAKER) (test lwyn=350) 286 mOsm/kg 275-295 URIC [id number] 11:26:00* Test Item Value Reference Range Comments URIC ACID (BEAKER) (test czep=511) 9.7 mg/dL 2.6-7.2 [id number] 11:26:00* Test Item Value Reference Range Comments MAGNESIUM (BEAKER) (test rtnc=210) 1.3 mg/dL 1.6-2.6 [id number] 11:26:00* Test Item Value Reference Range Comments PHOSPHORUS (BEAKER) (test mldy=491) 5.4 mg/dL 2.3-4.7 TACROLIMUS [id number] 11:13:00* Test Item Value Reference Range Comments TACROLIMUS BLOOD (BEAKER) (test exqn=096) 9.9 ng/mL 10.0-20.0 BASIC METABOLIC [id number] 06:58:00* Test Item Value Reference Range Comments SODIUM (BEAKER) (test pgbm=540) 133 meq/L 136-145 POTASSIUM (BEAKER) (test smao=988) 5.3 meq/L 3.5-5.1 CHLORIDE (BEAKER) (test ojuf=444) 108 meq/L 98-107 CO2 (BEAKER) (test wklr=543) 13 meq/L 22-29 BLOOD UREA NITROGEN (BEAKER) (test wsfc=439) 24 mg/dL 7-21 CREATININE (BEAKER) (test oyvv=193) 3.99 mg/dL 0.57-1.25 GLUCOSE RANDOM (BEAKER) (test ebwm=202) 102 mg/dL 70-105 CALCIUM (BEAKER) (test jtuw=006) 8.0 mg/dL 8.4-10.2 EGFR (BEAKER) (test kwpf=4527) 11 mL/min/1.73 sq m ESTIMATED GFR IS NOT ACCURATE CREATININE CLEARANCE IN PREDICTING GLOMERULAR FILTRATION RATE. ESTIMATED GFR IS NOT APPLICABLE FOR DIALYSIS PATIENTS. HEPATIC FUNCTION [id number] 06:57:00* Test Item Value Reference Range Comments TOTAL PROTEIN (BEAKER) (test fnqw=518) 5.0 gm/dL 6.0-8.3 ALBUMIN (BEAKER) (test mrmq=6707) 3.0 g/dL 3.5-5.0 BILIRUBIN TOTAL (BEAKER) (test dfgf=786) 0.7 mg/dL 0.2-1.2 BILIRUBIN DIRECT (BEAKER) (test jdgo=676) 0.3 mg/dL 0.1-0.5 ALKALINE PHOSPHATASE (BEAKER) (test fgpu=773) 81 U/L 40-150 AST (SGOT) (BEAKER) (test cyqm=532) 15 U/L 5-34 ALT (SGPT) (BEAKER) (test wdjb=523) 12 U/L 6-55 CBC W/PLT COUNT & AUTO [id number] 16:57:00* Test Item Value Reference Range Comments WHITE BLOOD CELL COUNT (BEAKER) (test emgr=536) 8.7 K/ L 3.5-10.5 RED BLOOD CELL COUNT (BEAKER) (test bccj=362) 2.98 M/ L 3.93-5.22 HEMOGLOBIN (BEAKER) (test knaj=292) 8.4 GM/DL 11.2-15.7 HEMATOCRIT (BEAKER) (test hhcy=234) 26.4 % 34.1-44.9 MEAN CORPUSCULAR VOLUME (BEAKER) (test bval=885) 88.6 fL 79.4-94.8 MEAN CORPUSCULAR HEMOGLOBIN (BEAKER) (test ieez=987) 28.2 pg 25.6-32.2 MEAN CORPUSCULAR HEMOGLOBIN CONC (BEAKER) (test tmba=832) 31.8 GM/DL 32.2-35.5 RED CELL DISTRIBUTION WIDTH (BEAKER) (test viav=292) 18.6 % 11.7-14.4 PLATELET COUNT (BEAKER) (test vbzk=882) 260 K/CU MM 150-450 MEAN PLATELET VOLUME (BEAKER) (test mvts=839) 10.7 fL 9.4-12.3 NUCLEATED RED BLOOD CELLS (BEAKER) (test wtpt=082) 0 /100 WBC 0-0 NEUTROPHILS RELATIVE PERCENT (BEAKER) (test qugk=733) 72 % LYMPHOCYTES RELATIVE PERCENT (BEAKER) (test degm=913) 11 % MONOCYTES RELATIVE PERCENT (BEAKER) (test bcsh=220) 10 % EOSINOPHILS RELATIVE PERCENT (BEAKER) (test dxky=214) 6 % BASOPHILS RELATIVE PERCENT (BEAKER) (test zkoo=721) 0 % NEUTROPHILS ABSOLUTE COUNT (BEAKER) (test tofs=163) 6.23 K/ L 1.56-6.13 LYMPHOCYTES ABSOLUTE COUNT (BEAKER) (test thpw=097) 0.92 K/ L 1.18-3.74 MONOCYTES ABSOLUTE COUNT (BEAKER) (test pyiz=281) 0.90 K/ L 0.24-0.36 EOSINOPHILS ABSOLUTE COUNT (BEAKER) (test ffap=351) 0.53 K/ L 0.04-0.36 BASOPHILS ABSOLUTE COUNT (BEAKER) (test pwsj=458) 0.03 K/ L 0.01-0.08 IMMATURE GRANULOCYTES-RELATIVE PERCENT (BEAKER) (test stju=3939) 1 % 0-1 BASIC METABOLIC [id number] 16:27:00* Test Item Value Reference Range Comments SODIUM (BEAKER) (test csgo=191) 135 meq/L 136-145 POTASSIUM (BEAKER) (test moqm=327) 5.1 meq/L 3.5-5.1 CHLORIDE (BEAKER) (test fdjy=300) 111 meq/L 98-107 CO2 (BEAKER) (test vpyd=462) 15 meq/L 22-29 BLOOD UREA NITROGEN (BEAKER) (test icig=652) 18 mg/dL 7-21 CREATININE (BEAKER) (test pmas=728) 2.81 mg/dL 0.57-1.25 GLUCOSE RANDOM (BEAKER) (test wulh=168) 98 mg/dL 70-105 CALCIUM (BEAKER) (test qafd=094) 7.4 mg/dL 8.4-10.2 EGFR (BEAKER) (test ngvo=4474) 17 mL/min/1.73 sq m ESTIMATED GFR IS NOT ACCURATE CREATININE CLEARANCE IN PREDICTING GLOMERULAR FILTRATION RATE. ESTIMATED GFR IS NOT APPLICABLE FOR DIALYSIS PATIENTS. TACROLIMUS [id number] 09:58:00* Test Item Value Reference Range Comments TACROLIMUS BLOOD (BEAKER) (test ccgc=059) 10.1 ng/mL 10.0-20.0 BASIC METABOLIC [id number] 08:00:00* Test Item Value Reference Range Comments SODIUM (BEAKER) (test tjxx=563) 137 meq/L 136-145 POTASSIUM (BEAKER) (test gwkh=237) 5.5 meq/L 3.5-5.1 CHLORIDE (BEAKER) (test swzh=661) 112 meq/L 98-107 CO2 (BEAKER) (test ehkz=049) 16 meq/L 22-29 BLOOD UREA NITROGEN (BEAKER) (test cokl=336) 17 mg/dL 7-21 CREATININE (BEAKER) (test ryub=278) 2.49 mg/dL 0.57-1.25 GLUCOSE RANDOM (BEAKER) (test ojwg=844) 100 mg/dL 70-105 CALCIUM (BEAKER) (test ayha=053) 8.5 mg/dL 8.4-10.2 EGFR (BEAKER) (test wilf=8368) 19 mL/min/1.73 sq m ESTIMATED GFR IS NOT ACCURATE CREATININE CLEARANCE IN PREDICTING GLOMERULAR FILTRATION RATE. ESTIMATED GFR IS NOT APPLICABLE FOR DIALYSIS PATIENTS. HEPATIC FUNCTION [id number] 07:24:00* Test Item Value Reference Range Comments TOTAL PROTEIN (BEAKER) (test pmvw=258) 5.2 gm/dL 6.0-8.3 ALBUMIN (BEAKER) (test vbeg=5055) 3.2 g/dL 3.5-5.0 BILIRUBIN TOTAL (BEAKER) (test iswz=018) 0.4 mg/dL 0.2-1.2 BILIRUBIN DIRECT (BEAKER) (test toik=590) 0.3 mg/dL 0.1-0.5 ALKALINE PHOSPHATASE (BEAKER) (test lhyl=636) 87 U/L 40-150 AST (SGOT) (BEAKER) (test znxd=766) 23 U/L 5-34 ALT (SGPT) (BEAKER) (test bzao=256) 14 U/L 6-55 TACROLIMUS [id number] 10:41:00* Test Item Value Reference Range Comments TACROLIMUS BLOOD (BEAKER) (test svjg=474) 6.8 ng/mL 10.0-20.0 OSMOLALITY, [id number] 08:12:00* Test Item Value Reference Range Comments OSMOLALITY, SERUM (BEAKER) (test rryp=989) 281 mOsm/kg 275-295 TSH/FREE T4 IF [id number] 07:29:00* Test Item Value Reference Range Comments THYROID STIMULATING HORMONE (BEAKER) (test demf=963) 4.50 uIU/mL 0.35-4.94 BASIC METABOLIC [id number] 07:27:00* Test Item Value Reference Range Comments SODIUM (BEAKER) (test csqg=282) 135 meq/L 136-145 POTASSIUM (BEAKER) (test jkfo=928) 5.5 meq/L 3.5-5.1 CHLORIDE (BEAKER) (test pzym=477) 111 meq/L 98-107 CO2 (BEAKER) (test qhys=626) 16 meq/L 22-29 BLOOD UREA NITROGEN (BEAKER) (test nbfe=487) 14 mg/dL 7-21 CREATININE (BEAKER) (test iflg=274) 2.07 mg/dL 0.57-1.25 GLUCOSE RANDOM (BEAKER) (test qadw=795) 76 mg/dL 70-105 CALCIUM (BEAKER) (test zrru=686) 8.6 mg/dL 8.4-10.2 EGFR (BEAKER) (test pkqe=1686) 24 mL/min/1.73 sq m ESTIMATED GFR IS NOT ACCURATE CREATININE CLEARANCE IN PREDICTING GLOMERULAR FILTRATION RATE. ESTIMATED GFR IS NOT APPLICABLE FOR DIALYSIS PATIENTS. HEPATIC FUNCTION [id number] 07:26:00* Test Item Value Reference Range Comments TOTAL PROTEIN (BEAKER) (test alxw=435) 5.3 gm/dL 6.0-8.3 ALBUMIN (BEAKER) (test tjpv=9526) 3.3 g/dL 3.5-5.0 BILIRUBIN TOTAL (BEAKER) (test tyyd=511) 0.4 mg/dL 0.2-1.2 BILIRUBIN DIRECT (BEAKER) (test jbjx=768) 0.2 mg/dL 0.1-0.5 ALKALINE PHOSPHATASE (BEAKER) (test rrbg=185) 86 U/L 40-150 AST (SGOT) (BEAKER) (test jxnb=035) 21 U/L 5-34 ALT (SGPT) (BEAKER) (test fhmx=043) 14 U/L 6-55 CREATININE, RANDOM [id number] 01:23:00* Test Item Value Reference Range Comments CREATININE URINE (BEAKER) (test mdrw=400) 160.1 mg/dL Reference Range: No NormalsSODIUM, RANDOM [id number] 01:23:00* Test Item Value Reference Range Comments SODIUM URINE (BEAKER) (test kloi=064) 114 meq/L Reference Range: No NormalsTACROLIMUS [id number] 11:43:00* Test Item Value Reference Range Comments TACROLIMUS BLOOD (BEAKER) (test ullf=692) 8.3 ng/mL 10.0-20.0 BASIC METABOLIC [id number] 08:09:00* Test Item Value Reference Range Comments SODIUM (BEAKER) (test pzco=571) 133 meq/L 136-145 POTASSIUM (BEAKER) (test numt=222) 5.1 meq/L 3.5-5.1 CHLORIDE (BEAKER) (test tlan=737) 110 meq/L 98-107 CO2 (BEAKER) (test xjds=861) 15 meq/L 22-29 BLOOD UREA NITROGEN (BEAKER) (test ljjh=151) 13 mg/dL 7-21 CREATININE (BEAKER) (test litg=012) 1.96 mg/dL 0.57-1.25 GLUCOSE RANDOM (BEAKER) (test kerj=780) 80 mg/dL 70-105 CALCIUM (BEAKER) (test fihk=634) 8.4 mg/dL 8.4-10.2 EGFR (BEAKER) (test ehmc=4452) 25 mL/min/1.73 sq m ESTIMATED GFR IS NOT ACCURATE CREATININE CLEARANCE IN PREDICTING GLOMERULAR FILTRATION RATE. ESTIMATED GFR IS NOT APPLICABLE FOR DIALYSIS PATIENTS. URIC [id number] 08:02:00* Test Item Value Reference Range Comments URIC ACID (BEAKER) (test mrzd=628) 8.5 mg/dL 2.6-7.2 [id number] 08:02:00* Test Item Value Reference Range Comments MAGNESIUM (BEAKER) (test pike=128) 1.4 mg/dL 1.6-2.6 [id number] 08:02:00* Test Item Value Reference Range Comments PHOSPHORUS (BEAKER) (test jkni=396) 3.5 mg/dL 2.3-4.7 HEPATIC FUNCTION [id number] 08:02:00* Test Item Value Reference Range Comments TOTAL PROTEIN (BEAKER) (test twhy=905) 5.3 gm/dL 6.0-8.3 ALBUMIN (BEAKER) (test gqak=8389) 3.3 g/dL 3.5-5.0 BILIRUBIN TOTAL (BEAKER) (test kuva=063) 0.5 mg/dL 0.2-1.2 BILIRUBIN DIRECT (BEAKER) (test dmup=492) 0.2 mg/dL 0.1-0.5 ALKALINE PHOSPHATASE (BEAKER) (test mzyh=112) 82 U/L 40-150 AST (SGOT) (BEAKER) (test oluk=958) 19 U/L 5-34 ALT (SGPT) (BEAKER) (test jihd=697) 12 U/L 6-55 TACROLIMUS [id number] 10:53:00* Test Item Value Reference Range Comments TACROLIMUS BLOOD (BEAKER) (test bbpf=250) 8.9 ng/mL 10.0-20.0 URIC [id number] 06:36:00* Test Item Value Reference Range Comments URIC ACID (BEAKER) (test rewv=263) 8.0 mg/dL 2.6-7.2 [id number] 06:36:00* Test Item Value Reference Range Comments MAGNESIUM (BEAKER) (test jfxz=885) 1.6 mg/dL 1.6-2.6 [id number] 06:36:00* Test Item Value Reference Range Comments PHOSPHORUS (BEAKER) (test jjum=675) 3.4 mg/dL 2.3-4.7 HEPATIC FUNCTION [id number] 06:36:00* Test Item Value Reference Range Comments TOTAL PROTEIN (BEAKER) (test owfp=964) 5.4 gm/dL 6.0-8.3 ALBUMIN (BEAKER) (test midz=2723) 3.3 g/dL 3.5-5.0 BILIRUBIN TOTAL (BEAKER) (test eytx=979) 0.4 mg/dL 0.2-1.2 BILIRUBIN DIRECT (BEAKER) (test tgzz=754) 0.2 mg/dL 0.1-0.5 ALKALINE PHOSPHATASE (BEAKER) (test lubv=704) 87 U/L 40-150 AST (SGOT) (BEAKER) (test umoz=821) 18 U/L 5-34 ALT (SGPT) (BEAKER) (test qtoq=989) 12 U/L 6-55 BASIC METABOLIC [id number] 06:36:00* Test Item Value Reference Range Comments SODIUM (BEAKER) (test hzii=967) 135 meq/L 136-145 POTASSIUM (BEAKER) (test wsli=406) 4.8 meq/L 3.5-5.1 CHLORIDE (BEAKER) (test zamq=664) 110 meq/L 98-107 CO2 (BEAKER) (test auue=030) 16 meq/L 22-29 BLOOD UREA NITROGEN (BEAKER) (test rrpm=767) 13 mg/dL 7-21 CREATININE (BEAKER) (test muxb=949) 1.85 mg/dL 0.57-1.25 GLUCOSE RANDOM (BEAKER) (test vuoz=679) 85 mg/dL 70-105 CALCIUM (BEAKER) (test kldu=844) 8.5 mg/dL 8.4-10.2 EGFR (BEAKER) (test sbtl=4705) 27 mL/min/1.73 sq m ESTIMATED GFR IS NOT ACCURATE CREATININE CLEARANCE IN PREDICTING GLOMERULAR FILTRATION RATE. ESTIMATED GFR IS NOT APPLICABLE FOR DIALYSIS PATIENTS. URINE [id number] 16:24:00* Test Item Value Reference Range Comments CULTURE (BEAKER) (test ocgc=4904) >100,000 col/mL Nae species, not albicans <10,000 col/mL skin floraTACROLIMUS [id number] 09:00:00* Test Item Value Reference Range Comments TACROLIMUS BLOOD (BEAKER) (test mgth=874) 8.4 ng/mL 10.0-20.0 BASIC METABOLIC [id number] 07:56:00* Test Item Value Reference Range Comments SODIUM (BEAKER) (test xwpj=774) 135 meq/L 136-145 POTASSIUM (BEAKER) (test divl=872) 4.5 meq/L 3.5-5.1 CHLORIDE (BEAKER) (test lsqk=954) 111 meq/L 98-107 CO2 (BEAKER) (test fccc=670) 17 meq/L 22-29 BLOOD UREA NITROGEN (BEAKER) (test pbme=899) 14 mg/dL 7-21 CREATININE (BEAKER) (test cvgb=534) 1.76 mg/dL 0.57-1.25 GLUCOSE RANDOM (BEAKER) (test alrx=745) 88 mg/dL 70-105 CALCIUM (BEAKER) (test qizu=281) 8.5 mg/dL 8.4-10.2 EGFR (BEAKER) (test ikld=1595) 29 mL/min/1.73 sq m ESTIMATED GFR IS NOT ACCURATE CREATININE CLEARANCE IN PREDICTING GLOMERULAR FILTRATION RATE. ESTIMATED GFR IS NOT APPLICABLE FOR DIALYSIS PATIENTS. URIC [id number] 07:53:00* Test Item Value Reference Range Comments URIC ACID (BEAKER) (test wdgc=189) 7.8 mg/dL 2.6-7.2 [id number] 07:53:00* Test Item Value Reference Range Comments MAGNESIUM (BEAKER) (test mrnr=388) 1.6 mg/dL 1.6-2.6 [id number] 07:53:00* Test Item Value Reference Range Comments PHOSPHORUS (BEAKER) (test dddl=032) 3.6 mg/dL 2.3-4.7 HEPATIC FUNCTION [id number] 07:53:00* Test Item Value Reference Range Comments TOTAL PROTEIN (BEAKER) (test mgac=737) 5.5 gm/dL 6.0-8.3 ALBUMIN (BEAKER) (test eqrj=0158) 3.3 g/dL 3.5-5.0 BILIRUBIN TOTAL (BEAKER) (test wjat=672) 0.4 mg/dL 0.2-1.2 BILIRUBIN DIRECT (BEAKER) (test jzip=292) 0.2 mg/dL 0.1-0.5 ALKALINE PHOSPHATASE (BEAKER) (test pyoa=025) 89 U/L 40-150 AST (SGOT) (BEAKER) (test qhcb=938) 16 U/L 5-34 ALT (SGPT) (BEAKER) (test ifjw=882) 9 U/L 6-55 TACROLIMUS [id number] 10:32:00* Test Item Value Reference Range Comments TACROLIMUS BLOOD (BEAKER) (test nfhs=218) 8.2 ng/mL 10.0-20.0 T4, [id number] 08:40:00* Test Item Value Reference Range Comments FREE T4 (BEAKER) (test oqvf=032) 0.83 ng/dL 0.70-1.48 CBC W/PLT COUNT & AUTO [id number] 07:47:00* Test Item Value Reference Range Comments WHITE BLOOD CELL COUNT (BEAKER) (test pcsw=329) 4.4 K/ L 3.5-10.5 RED BLOOD CELL COUNT (BEAKER) (test kocr=298) 2.91 M/ L 3.93-5.22 HEMOGLOBIN (BEAKER) (test jiia=745) 8.2 GM/DL 11.2-15.7 HEMATOCRIT (BEAKER) (test jdrq=485) 26.5 % 34.1-44.9 MEAN CORPUSCULAR VOLUME (BEAKER) (test ooyp=475) 91.1 fL 79.4-94.8 MEAN CORPUSCULAR HEMOGLOBIN (BEAKER) (test qwls=177) 28.2 pg 25.6-32.2 MEAN CORPUSCULAR HEMOGLOBIN CONC (BEAKER) (test yoty=625) 30.9 GM/DL 32.2-35.5 RED CELL DISTRIBUTION WIDTH (BEAKER) (test tosq=464) 18.9 % 11.7-14.4 PLATELET COUNT (BEAKER) (test wpzs=662) 277 K/CU MM 150-450 MEAN PLATELET VOLUME (BEAKER) (test hksm=064) 10.3 fL 9.4-12.3 NUCLEATED RED BLOOD CELLS (BEAKER) (test bcnh=741) 0 /100 WBC 0-0 NEUTROPHILS RELATIVE PERCENT (BEAKER) (test usds=177) 63 % LYMPHOCYTES RELATIVE PERCENT (BEAKER) (test gklu=300) 10 % MONOCYTES RELATIVE PERCENT (BEAKER) (test dmnv=256) 10 % EOSINOPHILS RELATIVE PERCENT (BEAKER) (test foxc=941) 15 % BASOPHILS RELATIVE PERCENT (BEAKER) (test rmwn=209) 1 % NEUTROPHILS ABSOLUTE COUNT (BEAKER) (test pnvu=478) 2.80 K/ L 1.56-6.13 LYMPHOCYTES ABSOLUTE COUNT (BEAKER) (test krzo=737) 0.46 K/ L 1.18-3.74 MONOCYTES ABSOLUTE COUNT (BEAKER) (test kyhs=702) 0.46 K/ L 0.24-0.36 EOSINOPHILS ABSOLUTE COUNT (BEAKER) (test tnjb=806) 0.65 K/ L 0.04-0.36 BASOPHILS ABSOLUTE COUNT (BEAKER) (test rshj=113) 0.04 K/ L 0.01-0.08 IMMATURE GRANULOCYTES-RELATIVE PERCENT (BEAKER) (test wjvl=7752) 1 % 0-1 TSH/FREE T4 IF [id number] 07:24:00* Test Item Value Reference Range Comments THYROID STIMULATING HORMONE (BEAKER) (test nkuq=315) 5.09 uIU/mL 0.35-4.94 BASIC METABOLIC [id number] 07:17:00* Test Item Value Reference Range Comments SODIUM (BEAKER) (test thpf=310) 135 meq/L 136-145 POTASSIUM (BEAKER) (test bhui=089) 4.5 meq/L 3.5-5.1 CHLORIDE (BEAKER) (test lfrp=930) 112 meq/L 98-107 CO2 (BEAKER) (test arxe=365) 17 meq/L 22-29 BLOOD UREA NITROGEN (BEAKER) (test icxz=355) 17 mg/dL 7-21 CREATININE (BEAKER) (test vuto=398) 1.79 mg/dL 0.57-1.25 GLUCOSE RANDOM (BEAKER) (test rtkp=414) 85 mg/dL 70-105 CALCIUM (BEAKER) (test dpmz=075) 8.2 mg/dL 8.4-10.2 EGFR (BEAKER) (test dvbu=4299) 28 mL/min/1.73 sq m ESTIMATED GFR IS NOT ACCURATE CREATININE CLEARANCE IN PREDICTING GLOMERULAR FILTRATION RATE. ESTIMATED GFR IS NOT APPLICABLE FOR DIALYSIS PATIENTS. TACROLIMUS [id number] 10:49:00* Test Item Value Reference Range Comments TACROLIMUS BLOOD (BEAKER) (test zxfy=206) 7.1 ng/mL 10.0-20.0 TACROLIMUS [id number] 11:57:00* Test Item Value Reference Range Comments TACROLIMUS BLOOD (BEAKER) (test ooow=954) 6.2 ng/mL 10.0-20.0 BLOOD [id number] 17:00:00* Test Item Value Reference Range Comments CULTURE (BEAKER) (test nprg=7775) No growth in 5 days TACROLIMUS [id number] 12:23:00* Test Item Value Reference Range Comments TACROLIMUS BLOOD (BEAKER) (test rhoa=704) 5.0 ng/mL 10.0-20.0 CBC W/PLT COUNT & AUTO [id number] 08:40:00* Test Item Value Reference Range Comments WHITE BLOOD CELL COUNT (BEAKER) (test aaul=926) 5.2 K/ L 3.5-10.5 RED BLOOD CELL COUNT (BEAKER) (test utdu=639) 2.84 M/ L 3.93-5.22 HEMOGLOBIN (BEAKER) (test byly=240) 8.1 GM/DL 11.2-15.7 HEMATOCRIT (BEAKER) (test fapy=368) 25.6 % 34.1-44.9 MEAN CORPUSCULAR VOLUME (BEAKER) (test iisb=542) 90.1 fL 79.4-94.8 MEAN CORPUSCULAR HEMOGLOBIN (BEAKER) (test gopw=197) 28.5 pg 25.6-32.2 MEAN CORPUSCULAR HEMOGLOBIN CONC (BEAKER) (test fzas=554) 31.6 GM/DL 32.2-35.5 RED CELL DISTRIBUTION WIDTH (BEAKER) (test ysrw=853) 18.4 % 11.7-14.4 PLATELET COUNT (BEAKER) (test yzdk=938) 256 K/CU MM 150-450 MEAN PLATELET VOLUME (BEAKER) (test byhn=553) 10.4 fL 9.4-12.3 NUCLEATED RED BLOOD CELLS (BEAKER) (test sfcl=712) 0 /100 WBC 0-0 NEUTROPHILS RELATIVE PERCENT (BEAKER) (test riih=017) 68 % LYMPHOCYTES RELATIVE PERCENT (BEAKER) (test baqd=271) 11 % MONOCYTES RELATIVE PERCENT (BEAKER) (test ndip=647) 8 % EOSINOPHILS RELATIVE PERCENT (BEAKER) (test ueve=109) 10 % BASOPHILS RELATIVE PERCENT (BEAKER) (test xmqb=201) 1 % NEUTROPHILS ABSOLUTE COUNT (BEAKER) (test wtwd=971) 3.50 K/ L 1.56-6.13 LYMPHOCYTES ABSOLUTE COUNT (BEAKER) (test zyzg=353) 0.58 K/ L 1.18-3.74 MONOCYTES ABSOLUTE COUNT (BEAKER) (test hqzj=840) 0.42 K/ L 0.24-0.36 EOSINOPHILS ABSOLUTE COUNT (BEAKER) (test cxrx=243) 0.53 K/ L 0.04-0.36 BASOPHILS ABSOLUTE COUNT (BEAKER) (test egyk=193) 0.05 K/ L 0.01-0.08 IMMATURE GRANULOCYTES-RELATIVE PERCENT (BEAKER) (test mpdp=9851) 1 % 0-1 COMPREHENSIVE METABOLIC [id number] 07:18:00* Test Item Value Reference Range Comments TOTAL PROTEIN (BEAKER) (test bjxl=439) 5.3 gm/dL 6.0-8.3 ALBUMIN (BEAKER) (test jdpd=3860) 3.3 g/dL 3.5-5.0 ALKALINE PHOSPHATASE (BEAKER) (test gmwq=593) 70 U/L 40-150 BILIRUBIN TOTAL (BEAKER) (test kolx=226) 0.4 mg/dL 0.2-1.2 SODIUM (BEAKER) (test kkjt=562) 137 meq/L 136-145 POTASSIUM (BEAKER) (test lohm=840) 4.2 meq/L 3.5-5.1 CHLORIDE (BEAKER) (test ppiv=753) 113 meq/L 98-107 CO2 (BEAKER) (test idcq=032) 17 meq/L 22-29 BLOOD UREA NITROGEN (BEAKER) (test yvfa=780) 13 mg/dL 7-21 CREATININE (BEAKER) (test temf=448) 1.18 mg/dL 0.57-1.25 GLUCOSE RANDOM (BEAKER) (test bgip=797) 79 mg/dL 70-105 CALCIUM (BEAKER) (test nrkc=978) 8.1 mg/dL 8.4-10.2 AST (SGOT) (BEAKER) (test izph=240) 14 U/L 5-34 ALT (SGPT) (BEAKER) (test rlmz=306) 7 U/L 6-55 EGFR (BEAKER) (test nzsk=1931) 46 mL/min/1.73 sq m ESTIMATED GFR IS NOT ACCURATE CREATININE CLEARANCE IN PREDICTING GLOMERULAR FILTRATION RATE. ESTIMATED GFR IS NOT APPLICABLE FOR DIALYSIS PATIENTS. PROTHROMBIN [id number] 06:45:00* Test Item Value Reference Range Comments PROTIME (BEAKER) (test lheq=063) 15.8 seconds 11.7-14.7 INR (BEAKER) (test czkh=400) 1.3 <=5.9 RECOMMENDED COUMADIN/WARFARIN INR THERAPY RANGESSTANDARD DOSE: 2.0 - 3.0 Inclu eduar: PROPHYLAXIS for venous thrombosis, systemic embolization; TREATMENT for ania ous thrombosis and/or pulmonary embolus.HIGH RISK: Target INR is 2.5-3.5 for pat ients with mechanical heart valves.URINALYSIS W/ [id number] 02:54:00 * Test Item Value Reference Range Comments COLOR (BEAKER) (test muou=847) Light Yellow CLARITY (BEAKER) (test qnyn=827) Hazy SPECIFIC GRAVITY UA (BEAKER) (test dmve=028) 1.009 1.001-1.035 PH UA (BEAKER) (test yhsn=817) 6.0 5.0-8.0 PROTEIN UA (BEAKER) (test htzj=932) Negative Negative GLUCOSE UA (BEAKER) (test zpyn=906) Negative Negative KETONES UA (BEAKER) (test xgpb=355) Negative Negative BILIRUBIN UA (BEAKER) (test mrpk=043) Negative Negative BLOOD UA (BEAKER) (test aeeu=899) Negative Negative NITRITE UA (BEAKER) (test ohns=499) Negative Negative LEUKOCYTE ESTERASE UA (BEAKER) (test olqf=103) Negative Negative UROBILINOGEN UA (BEAKER) (test zkvq=886) 0.2 mg/dL 0.2-1.0 RBC UA (BEAKER) (test xxdz=080) 1 /HPF WBC UA (BEAKER) (test ambo=636) 1 /HPF BACTERIA (BEAKER) (test cenb=996) Rare MUCUS (BEAKER) (test ljjx=3909) Rare SQUAMOUS EPITHELIAL (BEAKER) (test yzqn=987) 4 /HPF HYALINE CASTS (BEAKER) (test sogw=154) 2 /LPF AMORPHOUS CRYSTALS (BEAKER) (test rkph=6016) Rare SOURCE(BEAKER) (test nuaj=6525) Urine, Voided POCT-GLUCOSE [id number] 11:45:00* Test Item Value Reference Range Comments POC-GLUCOSE METER (BEAKER) (test pwlq=5973) 104 mg/dL 70-110 TESTED AT [facility] [address] [address] TACROLIMUS [id number] 11:14:00* Test Item Value Reference Range Comments TACROLIMUS BLOOD (BEAKER) (test vaoy=179) 5.6 ng/mL 10.0-20.0 CBC W/PLT COUNT & AUTO [id number] 09:57:00* Test Item Value Reference Range Comments WHITE BLOOD CELL COUNT (BEAKER) (test dmii=418) 4.9 K/ L 3.5-10.5 RED BLOOD CELL COUNT (BEAKER) (test devk=152) 2.64 M/ L 3.93-5.22 HEMOGLOBIN (BEAKER) (test dflv=620) 7.7 GM/DL 11.2-15.7 HEMATOCRIT (BEAKER) (test cyjg=664) 23.6 % 34.1-44.9 MEAN CORPUSCULAR VOLUME (BEAKER) (test fysw=888) 89.4 fL 79.4-94.8 MEAN CORPUSCULAR HEMOGLOBIN (BEAKER) (test mnej=306) 29.2 pg 25.6-32.2 MEAN CORPUSCULAR HEMOGLOBIN CONC (BEAKER) (test zmes=484) 32.6 GM/DL 32.2-35.5 RED CELL DISTRIBUTION WIDTH (BEAKER) (test cjon=096) 18.3 % 11.7-14.4 PLATELET COUNT (BEAKER) (test zzgc=613) 264 K/CU MM 150-450 MEAN PLATELET VOLUME (BEAKER) (test fdsb=885) 10.3 fL 9.4-12.3 NUCLEATED RED BLOOD CELLS (BEAKER) (test prla=839) 0 /100 WBC 0-0 NEUTROPHILS RELATIVE PERCENT (BEAKER) (test batp=937) 65 % LYMPHOCYTES RELATIVE PERCENT (BEAKER) (test gsuk=074) 12 % MONOCYTES RELATIVE PERCENT (BEAKER) (test oedd=064) 9 % EOSINOPHILS RELATIVE PERCENT (BEAKER) (test jjub=840) 11 % BASOPHILS RELATIVE PERCENT (BEAKER) (test becu=006) 1 % NEUTROPHILS ABSOLUTE COUNT (BEAKER) (test uehy=081) 3.20 K/ L 1.56-6.13 LYMPHOCYTES ABSOLUTE COUNT (BEAKER) (test gqpf=794) 0.58 K/ L 1.18-3.74 MONOCYTES ABSOLUTE COUNT (BEAKER) (test bidp=308) 0.46 K/ L 0.24-0.36 EOSINOPHILS ABSOLUTE COUNT (BEAKER) (test ukwu=935) 0.55 K/ L 0.04-0.36 BASOPHILS ABSOLUTE COUNT (BEAKER) (test uogs=333) 0.03 K/ L 0.01-0.08 IMMATURE GRANULOCYTES-RELATIVE PERCENT (BEAKER) (test mppx=2315) 2 % 0-1 URIC [id number] 07:59:00* Test Item Value Reference Range Comments URIC ACID (BEAKER) (test xduy=488) 9.2 mg/dL 2.6-7.2 [id number] 07:59:00* Test Item Value Reference Range Comments MAGNESIUM (BEAKER) (test fpco=996) 1.6 mg/dL 1.6-2.6 [id number] 07:59:00* Test Item Value Reference Range Comments PHOSPHORUS (BEAKER) (test ruwq=510) 3.6 mg/dL 2.3-4.7 BASIC METABOLIC [id number] 07:59:00* Test Item Value Reference Range Comments SODIUM (BEAKER) (test qgxq=238) 139 meq/L 136-145 POTASSIUM (BEAKER) (test jetm=313) 3.9 meq/L 3.5-5.1 CHLORIDE (BEAKER) (test rqly=097) 113 meq/L 98-107 CO2 (BEAKER) (test raky=101) 19 meq/L 22-29 BLOOD UREA NITROGEN (BEAKER) (test xrdv=964) 14 mg/dL 7-21 CREATININE (BEAKER) (test bnzt=322) 1.18 mg/dL 0.57-1.25 GLUCOSE RANDOM (BEAKER) (test dutq=345) 95 mg/dL 70-105 CALCIUM (BEAKER) (test ouwn=014) 8.2 mg/dL 8.4-10.2 EGFR (BEAKER) (test maqh=5396) 46 mL/min/1.73 sq m ESTIMATED GFR IS NOT ACCURATE CREATININE CLEARANCE IN PREDICTING GLOMERULAR FILTRATION RATE. ESTIMATED GFR IS NOT APPLICABLE FOR DIALYSIS PATIENTS. HEPATIC FUNCTION [id number] 07:59:00* Test Item Value Reference Range Comments TOTAL PROTEIN (BEAKER) (test qaxz=481) 5.0 gm/dL 6.0-8.3 ALBUMIN (BEAKER) (test sorc=1729) 3.2 g/dL 3.5-5.0 BILIRUBIN TOTAL (BEAKER) (test zlqv=026) 0.4 mg/dL 0.2-1.2 BILIRUBIN DIRECT (BEAKER) (test kxft=294) 0.2 mg/dL 0.1-0.5 ALKALINE PHOSPHATASE (BEAKER) (test efpg=831) 71 U/L 40-150 AST (SGOT) (BEAKER) (test nkxw=036) 13 U/L 5-34 ALT (SGPT) (BEAKER) (test envd=651) 8 U/L 6-55 PROTHROMBIN [id number] 07:43:00* Test Item Value Reference Range Comments PROTIME (BEAKER) (test dagx=036) 15.9 seconds 11.7-14.7 INR (BEAKER) (test bafs=649) 1.3 <=5.9 RECOMMENDED COUMADIN/WARFARIN INR THERAPY RANGESSTANDARD DOSE: 2.0 - 3.0 Inclu eduar: PROPHYLAXIS for venous thrombosis, systemic embolization; TREATMENT for ania ous thrombosis and/or pulmonary embolus.HIGH RISK: Target INR is 2.5-3.5 for pat ients with mechanical heart valves.POCT-GLUCOSE [id number] 07:31:00* Test Item Value Reference Range Comments POC-GLUCOSE METER ([employer]) (test srkx=4023) 99 mg/dL 70-110 TESTED AT [address] [address] POCT-GLUCOSE [id number] 21:44:00* Test Item Value Reference Range Comments POC-GLUCOSE METER ([employer]) (test yznz=8734) 107 mg/dL 70-110 TESTED AT [address] [address] VANCOMYCIN LEVEL, [id number] 18:57:00* Test Item Value Reference Range Comments VANCOMYCIN TROUGH ([facility]) (test npuk=420) 20.4 ug/mL 10.0-20.0 POCT-GLUCOSE [id number] 17:01:00* Test Item Value Reference Range Comments POC-GLUCOSE METER ([employer]) (test xnyp=2680) 97 mg/dL 70-110 TESTED AT [address] [address] POCT-GLUCOSE [id number] 13:26:00* Test Item Value Reference Range Comments POC-GLUCOSE METER (BEAKER) (test prol=5419) 120 mg/dL 70-110 TESTED AT [facility] [address] [address] POCT-GLUCOSE [id number] 08:11:00* Test Item Value Reference Range Comments POC-GLUCOSE METER (BEAKER) (test gpzz=3285) 96 mg/dL 70-110 TESTED AT [facility] [address] [address] URIC [id number] 06:18:00* Test Item Value Reference Range Comments URIC ACID (BEAKER) (test gklg=565) 10.2 mg/dL 2.6-7.2 [id number] 06:18:00* Test Item Value Reference Range Comments MAGNESIUM (BEAKER) (test dhdb=370) 1.8 mg/dL 1.6-2.6 [id number] 06:18:00* Test Item Value Reference Range Comments PHOSPHORUS (BEAKER) (test alur=600) 3.6 mg/dL 2.3-4.7 BASIC METABOLIC [id number] 06:18:00* Test Item Value Reference Range Comments SODIUM (BEAKER) (test xdac=742) 139 meq/L 136-145 POTASSIUM (BEAKER) (test xfjh=751) 3.4 meq/L 3.5-5.1 CHLORIDE (BEAKER) (test dzgd=067) 113 meq/L 98-107 CO2 (BEAKER) (test ppgx=191) 16 meq/L 22-29 BLOOD UREA NITROGEN (BEAKER) (test txps=662) 15 mg/dL 7-21 CREATININE (BEAKER) (test wplg=675) 1.41 mg/dL 0.57-1.25 GLUCOSE RANDOM (BEAKER) (test plre=639) 94 mg/dL 70-105 CALCIUM (BEAKER) (test kows=449) 8.2 mg/dL 8.4-10.2 EGFR (BEAKER) (test ydiq=6300) 37 mL/min/1.73 sq m ESTIMATED GFR IS NOT ACCURATE CREATININE CLEARANCE IN PREDICTING GLOMERULAR FILTRATION RATE. ESTIMATED GFR IS NOT APPLICABLE FOR DIALYSIS PATIENTS. HEPATIC FUNCTION [id number] 06:18:00* Test Item Value Reference Range Comments TOTAL PROTEIN (BEAKER) (test zubw=756) 5.4 gm/dL 6.0-8.3 ALBUMIN (BEAKER) (test yyzq=5200) 3.4 g/dL 3.5-5.0 BILIRUBIN TOTAL (BEAKER) (test szlo=930) 0.9 mg/dL 0.2-1.2 BILIRUBIN DIRECT (BEAKER) (test ovgq=277) 0.4 mg/dL 0.1-0.5 ALKALINE PHOSPHATASE (BEAKER) (test zyhp=001) 68 U/L 40-150 AST (SGOT) (BEAKER) (test aidn=192) 12 U/L 5-34 ALT (SGPT) (BEAKER) (test hkcv=925) 8 U/L 6-55 PROTHROMBIN [id number] 05:22:00* Test Item Value Reference Range Comments PROTIME (BEAKER) (test ntpi=925) 16.1 seconds 11.7-14.7 INR (BEAKER) (test tmuf=306) 1.3 <=5.9 RECOMMENDED COUMADIN/WARFARIN INR THERAPY RANGESSTANDARD DOSE: 2.0 - 3.0 Inclu eduar: PROPHYLAXIS for venous thrombosis, systemic embolization; TREATMENT for ania ous thrombosis and/or pulmonary embolus.HIGH RISK: Target INR is 2.5-3.5 for pat ients with mechanical heart valves.CBC W/PLT COUNT & AUTO [id number] 05:10:00* Test Item Value Reference Range Comments WHITE BLOOD CELL COUNT (BEAKER) (test bjyi=705) 6.5 K/ L 3.5-10.5 RED BLOOD CELL COUNT (BEAKER) (test vhvo=772) 2.76 M/ L 3.93-5.22 HEMOGLOBIN (BEAKER) (test dxbu=178) 8.0 GM/DL 11.2-15.7 HEMATOCRIT (BEAKER) (test pvuz=016) 24.2 % 34.1-44.9 MEAN CORPUSCULAR VOLUME (BEAKER) (test zobt=139) 87.7 fL 79.4-94.8 MEAN CORPUSCULAR HEMOGLOBIN (BEAKER) (test aahx=011) 29.0 pg 25.6-32.2 MEAN CORPUSCULAR HEMOGLOBIN CONC (BEAKER) (test ikyh=717) 33.1 GM/DL 32.2-35.5 RED CELL DISTRIBUTION WIDTH (BEAKER) (test xbac=847) 17.9 % 11.7-14.4 PLATELET COUNT (BEAKER) (test vlrp=774) 271 K/CU MM 150-450 MEAN PLATELET VOLUME (BEAKER) (test tjvs=139) 10.3 fL 9.4-12.3 NUCLEATED RED BLOOD CELLS (BEAKER) (test ehms=489) 0 /100 WBC 0-0 NEUTROPHILS RELATIVE PERCENT (BEAKER) (test ldor=247) 72 % LYMPHOCYTES RELATIVE PERCENT (BEAKER) (test jvtq=733) 11 % MONOCYTES RELATIVE PERCENT (BEAKER) (test kivx=609) 7 % EOSINOPHILS RELATIVE PERCENT (BEAKER) (test ugog=892) 7 % BASOPHILS RELATIVE PERCENT (BEAKER) (test voel=412) 1 % NEUTROPHILS ABSOLUTE COUNT (BEAKER) (test nuep=227) 4.66 K/ L 1.56-6.13 LYMPHOCYTES ABSOLUTE COUNT (BEAKER) (test nzaa=851) 0.69 K/ L 1.18-3.74 MONOCYTES ABSOLUTE COUNT (BEAKER) (test gfid=055) 0.48 K/ L 0.24-0.36 EOSINOPHILS ABSOLUTE COUNT (BEAKER) (test mtsl=903) 0.45 K/ L 0.04-0.36 BASOPHILS ABSOLUTE COUNT (BEAKER) (test qkgl=874) 0.04 K/ L 0.01-0.08 IMMATURE GRANULOCYTES-RELATIVE PERCENT (BEAKER) (test mfsx=1882) 2 % 0-1 POCT-GLUCOSE [id number] 23:07:00* Test Item Value Reference Range Comments POC-GLUCOSE METER (BEAKER) (test rqri=0218) 124 mg/dL 70-110 TESTED AT [place] [id number] POCT-GLUCOSE [id number] 18:09:00* Test Item Value Reference Range Comments POC-GLUCOSE METER (BEAKER) (test impy=2067) 91 mg/dL 70-110 TESTED AT [address] [address] URIC [id number] 14:39:00* Test Item Value Reference Range Comments URIC ACID (BEAKER) (test vjlk=651) 9.9 mg/dL 2.6-7.2 CLOSTRIDIUM DIFFICILE TOXIN [id number] 13:58:00* Test Item Value Reference Range Comments CLOSTRIDIUM DIFFICILE TOXIN, PCR ([employer]) (test uuip=3802) Not Detected Not Detected This qualitative real-time polymerase chain reaction assay detects the tcdB gene , encoded on the C.difficile pathogenicity locus (PaLoc). The product of tcdB, toxin B, is a cytotoxin essential for causing C.difficile-associated disease (CD AD) and is found in virtually all toxigenic C.difficile.This assay is performed for patients suspected of having either community-acquired or nosocomial CDAD. Accordingly, only symptomatic patients should be tested and formed stools will b e rejected unless ileus is present (i.e., specified when ordering). Patients ma y be colonized with toxigenic C.difficile strains not causing active disease; th erefore, clinical correlation is needed when deciding how to manage patients wit h a positive test result.The assay has not been validated as a test of cure as a mplifiable nucleic acid may persist after effective treatment; therefore, follow -up testing of a positive result is not recommended.POCT-GLUCOSE [id number] 13:34:00* Test Item Value Reference Range Comments POC-GLUCOSE METER ([employer]) (test zxsg=6007) 116 mg/dL 70-110 TESTED AT [facility] [address] [facility] [address] VANCOMYCIN LEVEL, [id number] 10:15:00* Test Item Value Reference Range Comments VANCOMYCIN TROUGH (BEAKER) (test zgrr=195) 14.8 ug/mL 10.0-20.0 TACROLIMUS [id number] 08:58:00* Test Item Value Reference Range Comments TACROLIMUS BLOOD (BEAKER) (test zrdj=745) 5.1 ng/mL 10.0-20.0 [id number] 06:07:00* Test Item Value Reference Range Comments PHOSPHORUS (BEAKER) (test rwtm=485) 3.8 mg/dL 2.3-4.7 [id number] 06:07:00* Test Item Value Reference Range Comments MAGNESIUM (BEAKER) (test buea=123) 1.6 mg/dL 1.6-2.6 BASIC METABOLIC [id number] 06:07:00* Test Item Value Reference Range Comments SODIUM (BEAKER) (test ftzi=858) 141 meq/L 136-145 POTASSIUM (BEAKER) (test qcpp=221) 3.6 meq/L 3.5-5.1 CHLORIDE (BEAKER) (test gimn=596) 116 meq/L 98-107 CO2 (BEAKER) (test qbrm=323) 15 meq/L 22-29 BLOOD UREA NITROGEN (BEAKER) (test djur=084) 15 mg/dL 7-21 CREATININE (BEAKER) (test uhyb=985) 1.30 mg/dL 0.57-1.25 GLUCOSE RANDOM (BEAKER) (test zryt=447) 87 mg/dL 70-105 CALCIUM (BEAKER) (test sehv=410) 8.0 mg/dL 8.4-10.2 EGFR (BEAKER) (test lahu=9513) 41 mL/min/1.73 sq m ESTIMATED GFR IS NOT ACCURATE CREATININE CLEARANCE IN PREDICTING GLOMERULAR FILTRATION RATE. ESTIMATED GFR IS NOT APPLICABLE FOR DIALYSIS PATIENTS. HEPATIC FUNCTION [id number] 06:07:00* Test Item Value Reference Range Comments TOTAL PROTEIN (BEAKER) (test ocib=283) 4.8 gm/dL 6.0-8.3 ALBUMIN (BEAKER) (test dvwh=1733) 3.2 g/dL 3.5-5.0 BILIRUBIN TOTAL (BEAKER) (test fchj=809) 0.5 mg/dL 0.2-1.2 BILIRUBIN DIRECT (BEAKER) (test agdm=587) 0.4 mg/dL 0.1-0.5 ALKALINE PHOSPHATASE (BEAKER) (test hbnl=423) 65 U/L 40-150 AST (SGOT) (BEAKER) (test jeux=526) 14 U/L 5-34 ALT (SGPT) (BEAKER) (test zipl=197) 7 U/L 6-55 PROTHROMBIN [id number] 05:50:00* Test Item Value Reference Range Comments PROTIME (BEAKER) (test xehw=028) 16.7 seconds 11.7-14.7 INR (BEAKER) (test zenp=397) 1.4 <=5.9 RECOMMENDED COUMADIN/WARFARIN INR THERAPY RANGESSTANDARD DOSE: 2.0 - 3.0 Inclu eduar: PROPHYLAXIS for venous thrombosis, systemic embolization; TREATMENT for ania ous thrombosis and/or pulmonary embolus.HIGH RISK: Target INR is 2.5-3.5 for pat ients with mechanical heart valves.CBC W/PLT COUNT & AUTO [id number] 05:42:00* Test Item Value Reference Range Comments WHITE BLOOD CELL COUNT (BEAKER) (test zwmf=722) 5.2 K/ L 3.5-10.5 RED BLOOD CELL COUNT (BEAKER) (test msfm=378) 2.18 M/ L 3.93-5.22 HEMOGLOBIN (BEAKER) (test ozij=309) 6.2 GM/DL 11.2-15.7 HEMATOCRIT (BEAKER) (test dabm=339) 19.7 % 34.1-44.9 MEAN CORPUSCULAR VOLUME (BEAKER) (test jejy=459) 90.4 fL 79.4-94.8 MEAN CORPUSCULAR HEMOGLOBIN (BEAKER) (test gehs=017) 28.4 pg 25.6-32.2 MEAN CORPUSCULAR HEMOGLOBIN CONC (BEAKER) (test dfcv=277) 31.5 GM/DL 32.2-35.5 RED CELL DISTRIBUTION WIDTH (BEAKER) (test uvtj=108) 18.6 % 11.7-14.4 PLATELET COUNT (BEAKER) (test twfg=068) 235 K/CU MM 150-450 MEAN PLATELET VOLUME (BEAKER) (test huzh=972) 10.0 fL 9.4-12.3 NUCLEATED RED BLOOD CELLS (BEAKER) (test iwyk=454) 0 /100 WBC 0-0 NEUTROPHILS RELATIVE PERCENT (BEAKER) (test kdtp=161) 69 % LYMPHOCYTES RELATIVE PERCENT (BEAKER) (test gmuo=148) 12 % MONOCYTES RELATIVE PERCENT (BEAKER) (test fdzn=891) 9 % EOSINOPHILS RELATIVE PERCENT (BEAKER) (test eulg=314) 7 % BASOPHILS RELATIVE PERCENT (BEAKER) (test vhsn=533) 0 % NEUTROPHILS ABSOLUTE COUNT (BEAKER) (test urda=980) 3.58 K/ L 1.56-6.13 LYMPHOCYTES ABSOLUTE COUNT (BEAKER) (test xsfs=000) 0.64 K/ L 1.18-3.74 MONOCYTES ABSOLUTE COUNT (BEAKER) (test oawf=318) 0.46 K/ L 0.24-0.36 EOSINOPHILS ABSOLUTE COUNT (BEAKER) (test qzbi=574) 0.38 K/ L 0.04-0.36 BASOPHILS ABSOLUTE COUNT (BEAKER) (test znkd=987) 0.01 K/ L 0.01-0.08 IMMATURE GRANULOCYTES-RELATIVE PERCENT (BEAKER) (test bikc=8232) 2 % 0-1 URINALYSIS W/ REFLEX URINE [id number] 23:11:00* Test Item Value Reference Range Comments COLOR (BEAKER) (test xkqg=403) Light Yellow CLARITY (BEAKER) (test yivv=287) Clear SPECIFIC GRAVITY UA (BEAKER) (test wphr=237) 1.006 1.001-1.035 PH UA (BEAKER) (test mebl=775) 5.0 5.0-8.0 PROTEIN UA (BEAKER) (test vito=368) Negative Negative GLUCOSE UA (BEAKER) (test pbfs=661) Negative Negative KETONES UA (BEAKER) (test azby=736) Negative Negative BILIRUBIN UA (BEAKER) (test kyqi=443) Negative Negative BLOOD UA (BEAKER) (test dgzp=207) Negative Negative NITRITE UA (BEAKER) (test tqjj=353) Negative Negative LEUKOCYTE ESTERASE UA (BEAKER) (test jctv=851) Negative Negative UROBILINOGEN UA (BEAKER) (test sski=962) 0.2 mg/dL 0.2-1.0 RBC UA (BEAKER) (test qxci=206) < /HPF WBC UA (BEAKER) (test zxlx=599) 1 /HPF BACTERIA (BEAKER) (test elij=655) Occasional MUCUS (BEAKER) (test phlj=3689) Rare SQUAMOUS EPITHELIAL (BEAKER) (test znmf=646) 1 /HPF HYALINE CASTS (BEAKER) (test kmhy=884) 12 /LPF SOURCE(BEAKER) (test scun=4966) POCT-GLUCOSE [id number] 23:00:00* Test Item Value Reference Range Comments POC-GLUCOSE METER (BEAKER) (test wrqr=3287) 118 mg/dL 70-110 TESTED AT [address] [address] POCT-GLUCOSE [id number] 18:19:00* Test Item Value Reference Range Comments POC-GLUCOSE METER (BEAKER) (test qsde=6120) 96 mg/dL 70-110 TESTED AT [address] [address] POCT-GLUCOSE [id number] 12:59:00* Test Item Value Reference Range Comments POC-GLUCOSE METER (BEAKER) (test qsvw=3592) 103 mg/dL 70-110 TESTED AT [facility] [address] [address] RAD, CHEST, 1 VIEW, NON [id number] 11:31:00Reason for exam:->PICC LINE PLACEMENTShould this be performed at the bedside?->YesFINAL REPORT CLINICAL HISTORY:PICC LINE PLACEMENT TECHNIQUE: 1 view of the chest. COMPARISON: 07/21/2017 IMPRESSION: The tip of the right PICC line is near the cavoatrial junction. Left lung base consolidation and a small left effusion are unchanged. Right basilar atelectasis is unchanged. The cardiomediastinal silhouette is unchanged. Signed: Cornell Norman Verified Date/Time: 07/22/2017 11:31:03 Reading Location: [facility] Radiology Reading Room [place] [id number] 10:46:00* Test Item Value Reference Range Comments TACROLIMUS BLOOD (BEAKER) (test kcqt=091) 5.1 ng/mL 10.0-20.0 POCT-GLUCOSE [id number] 06:25:00* Test Item Value Reference Range Comments POC-GLUCOSE METER (BEAKER) (test egjm=4699) 106 mg/dL 70-110 TESTED AT [facility] [address] [address] PROTHROMBIN [id number] 06:20:00* Test Item Value Reference Range Comments PROTIME (BEAKER) (test qxmd=303) 15.8 seconds 11.7-14.7 INR (BEAKER) (test gofm=207) 1.3 <=5.9 RECOMMENDED COUMADIN/WARFARIN INR THERAPY RANGESSTANDARD DOSE: 2.0 - 3.0 Inclu eduar: PROPHYLAXIS for venous thrombosis, systemic embolization; TREATMENT for ania ous thrombosis and/or pulmonary embolus.HIGH RISK: Target INR is 2.5-3.5 for pat ients with mechanical heart valves.[id number] 04:58:00* Test Item Value Reference Range Comments PHOSPHORUS (BEAKER) (test wqgv=339) 3.2 mg/dL 2.3-4.7 [id number] 04:58:00* Test Item Value Reference Range Comments MAGNESIUM (BEAKER) (test sbjv=225) 1.7 mg/dL 1.6-2.6 BASIC METABOLIC [id number] 04:58:00* Test Item Value Reference Range Comments SODIUM (BEAKER) (test plqk=523) 139 meq/L 136-145 POTASSIUM (BEAKER) (test fbhi=643) 4.2 meq/L 3.5-5.1 CHLORIDE (BEAKER) (test rnew=951) 115 meq/L 98-107 CO2 (BEAKER) (test ysmn=137) 12 meq/L 22-29 BLOOD UREA NITROGEN (BEAKER) (test flki=202) 15 mg/dL 7-21 CREATININE (BEAKER) (test ifky=002) 1.11 mg/dL 0.57-1.25 GLUCOSE RANDOM (BEAKER) (test ywhz=260) 93 mg/dL 70-105 CALCIUM (BEAKER) (test wemq=039) 8.2 mg/dL 8.4-10.2 EGFR (BEAKER) (test emdx=7454) 49 mL/min/1.73 sq m ESTIMATED GFR IS NOT ACCURATE CREATININE CLEARANCE IN PREDICTING GLOMERULAR FILTRATION RATE. ESTIMATED GFR IS NOT APPLICABLE FOR DIALYSIS PATIENTS. HEPATIC FUNCTION [id number] 04:58:00* Test Item Value Reference Range Comments TOTAL PROTEIN (BEAKER) (test ufml=006) 5.0 gm/dL 6.0-8.3 ALBUMIN (BEAKER) (test vuef=4195) 3.1 g/dL 3.5-5.0 BILIRUBIN TOTAL (BEAKER) (test pdvl=949) 0.7 mg/dL 0.2-1.2 BILIRUBIN DIRECT (BEAKER) (test uedn=257) 0.4 mg/dL 0.1-0.5 ALKALINE PHOSPHATASE (BEAKER) (test jggp=197) 84 U/L 40-150 AST (SGOT) (BEAKER) (test oxvo=468) 15 U/L 5-34 ALT (SGPT) (BEAKER) (test wxrb=446) 9 U/L 6-55 CBC W/PLT COUNT & AUTO [id number] 04:20:00* Test Item Value Reference Range Comments WHITE BLOOD CELL COUNT (BEAKER) (test xttp=721) 8.1 K/ L 3.5-10.5 RED BLOOD CELL COUNT (BEAKER) (test ofmx=757) 2.56 M/ L 3.93-5.22 HEMOGLOBIN (BEAKER) (test ywgw=859) 7.3 GM/DL 11.2-15.7 HEMATOCRIT (BEAKER) (test rxvg=370) 23.7 % 34.1-44.9 MEAN CORPUSCULAR VOLUME (BEAKER) (test ytei=754) 92.6 fL 79.4-94.8 MEAN CORPUSCULAR HEMOGLOBIN (BEAKER) (test ilkz=139) 28.5 pg 25.6-32.2 MEAN CORPUSCULAR HEMOGLOBIN CONC (BEAKER) (test sudu=839) 30.8 GM/DL 32.2-35.5 RED CELL DISTRIBUTION WIDTH (BEAKER) (test mfqq=240) 18.6 % 11.7-14.4 PLATELET COUNT (BEAKER) (test zgoc=417) 247 K/CU MM 150-450 MEAN PLATELET VOLUME (BEAKER) (test shah=764) 9.8 fL 9.4-12.3 NUCLEATED RED BLOOD CELLS (BEAKER) (test vqsf=968) 0 /100 WBC 0-0 NEUTROPHILS RELATIVE PERCENT (BEAKER) (test sbct=565) 74 % LYMPHOCYTES RELATIVE PERCENT (BEAKER) (test mwkm=515) 10 % MONOCYTES RELATIVE PERCENT (BEAKER) (test yomz=247) 8 % EOSINOPHILS RELATIVE PERCENT (BEAKER) (test gcjw=784) 5 % BASOPHILS RELATIVE PERCENT (BEAKER) (test dakp=988) 0 % NEUTROPHILS ABSOLUTE COUNT (BEAKER) (test nwmk=477) 5.98 K/ L 1.56-6.13 LYMPHOCYTES ABSOLUTE COUNT (BEAKER) (test wdyk=223) 0.78 K/ L 1.18-3.74 MONOCYTES ABSOLUTE COUNT (BEAKER) (test qwau=113) 0.66 K/ L 0.24-0.36 EOSINOPHILS ABSOLUTE COUNT (BEAKER) (test tacu=071) 0.41 K/ L 0.04-0.36 BASOPHILS ABSOLUTE COUNT (BEAKER) (test yozr=342) 0.02 K/ L 0.01-0.08 IMMATURE GRANULOCYTES-RELATIVE PERCENT (BEAKER) (test fqgk=5697) 3 % 0-1 POCT-GLUCOSE [id number] 00:47:00* Test Item Value Reference Range Comments POC-GLUCOSE METER (BEAKER) (test pkac=3787) 101 mg/dL 70-110 TESTED AT [facility] [address] [address] POCT-GLUCOSE [id number] 19:00:00* Test Item Value Reference Range Comments POC-GLUCOSE METER (BEAKER) (test pqeo=6758) 108 mg/dL 70-110 TESTED AT [address] [address] POCT-GLUCOSE [id number] 13:14:00* Test Item Value Reference Range Comments POC-GLUCOSE METER (BEAKER) (test qjdf=9072) 126 mg/dL 70-110 TESTED AT [address] [address] VANCOMYCIN LEVEL, [id number] 12:05:00* Test Item Value Reference Range Comments VANCOMYCIN TROUGH (BEAKER) (test qnjn=191) < ug/mL 10.0-20.0 Before 4th doseRAD, CHEST, 1 VIEW, NON [id number] 11:40:00Reason for exam:-> pneumoniaShould this be performed at the bedside?->YesFINAL REPORT Chest, one view HISTORY: Pneumonia COMPARISON: 07/17/2017 DISCUSSION: Persistent atelectasis or consolidation in the left lower lung. Small left pleural effusion. Mild interstitial edema. Unchanged enlargement of the cardiomediastinal silhouette. No pneumothorax. No acute osseous abnormality. IMPRESSION: Persistent atelectasis or consolidation in the left lower lobe with small left pleural effusion. Signed: Get [facility] MDReport Verified Date/Time: 07/21/2017 11:40:00 Reading Location: [facility] C013Y CT Body Reading Room [place] [id number] 11:38:00* Test Item Value Reference Range Comments TACROLIMUS BLOOD (BEAKER) (test sywb=598) 5.6 ng/mL 10.0-20.0 CBC W/PLT COUNT & AUTO [id number] 09:26:00* Test Item Value Reference Range Comments WHITE BLOOD CELL COUNT (BEAKER) (test sobm=177) 9.2 K/ L 3.5-10.5 RED BLOOD CELL COUNT (BEAKER) (test kolp=499) 2.61 M/ L 3.93-5.22 HEMOGLOBIN (BEAKER) (test btne=332) 7.5 GM/DL 11.2-15.7 HEMATOCRIT (BEAKER) (test zjrw=762) 23.4 % 34.1-44.9 MEAN CORPUSCULAR VOLUME (BEAKER) (test fdcd=562) 89.7 fL 79.4-94.8 MEAN CORPUSCULAR HEMOGLOBIN (BEAKER) (test qxqn=776) 28.7 pg 25.6-32.2 MEAN CORPUSCULAR HEMOGLOBIN CONC (BEAKER) (test gshi=640) 32.1 GM/DL 32.2-35.5 RED CELL DISTRIBUTION WIDTH (BEAKER) (test lbrw=221) 18.5 % 11.7-14.4 PLATELET COUNT (BEAKER) (test qalm=442) 178 K/CU MM 150-450 MEAN PLATELET VOLUME (BEAKER) (test etog=991) 10.7 fL 9.4-12.3 NUCLEATED RED BLOOD CELLS (BEAKER) (test gfsw=993) 0 /100 WBC 0-0 NEUTROPHILS RELATIVE PERCENT (BEAKER) (test mabm=803) 77 % LYMPHOCYTES RELATIVE PERCENT (BEAKER) (test lsqx=263) 9 % MONOCYTES RELATIVE PERCENT (BEAKER) (test oljh=937) 6 % EOSINOPHILS RELATIVE PERCENT (BEAKER) (test cbbx=869) 5 % BASOPHILS RELATIVE PERCENT (BEAKER) (test yapf=952) 0 % NEUTROPHILS ABSOLUTE COUNT (BEAKER) (test hivx=217) 7.06 K/ L 1.56-6.13 LYMPHOCYTES ABSOLUTE COUNT (BEAKER) (test angi=694) 0.84 K/ L 1.18-3.74 MONOCYTES ABSOLUTE COUNT (BEAKER) (test hrsz=589) 0.58 K/ L 0.24-0.36 EOSINOPHILS ABSOLUTE COUNT (BEAKER) (test mspe=114) 0.50 K/ L 0.04-0.36 BASOPHILS ABSOLUTE COUNT (BEAKER) (test imex=038) 0.02 K/ L 0.01-0.08 IMMATURE GRANULOCYTES-RELATIVE PERCENT (BEAKER) (test pnba=6317) 2 % 0-1 [id number] 08:25:00* Test Item Value Reference Range Comments MAGNESIUM (BEAKER) (test thes=294) 1.7 mg/dL 1.6-2.6 Specimen slightly hemolyzed [id number] 08:25:00* Test Item Value Reference Range Comments PHOSPHORUS (BEAKER) (test qaap=236) 2.7 mg/dL 2.3-4.7 Specimen slightly hemolyzed BASIC METABOLIC [id number] 08:25:00* Test Item Value Reference Range Comments SODIUM (BEAKER) (test qbbr=851) 134 meq/L 136-145 POTASSIUM (BEAKER) (test yrdn=445) 4.4 meq/L 3.5-5.1 Specimen slightly hemolyzed CHLORIDE (BEAKER) (test ijmz=281) 112 meq/L 98-107 CO2 (BEAKER) (test suxv=518) 12 meq/L 22-29 BLOOD UREA NITROGEN (BEAKER) (test gjto=669) 19 mg/dL 7-21 CREATININE (BEAKER) (test ovwe=103) 1.27 mg/dL 0.57-1.25 Specimen slightly hemolyzed GLUCOSE RANDOM (BEAKER) (test ughg=129) 85 mg/dL 70-105 CALCIUM (BEAKER) (test xpgj=439) 8.0 mg/dL 8.4-10.2 EGFR (BEAKER) (test iyhq=8008) 42 mL/min/1.73 sq m ESTIMATED GFR IS NOT ACCURATE CREATININE CLEARANCE IN PREDICTING GLOMERULAR FILTRATION RATE. ESTIMATED GFR IS NOT APPLICABLE FOR DIALYSIS PATIENTS. HEPATIC FUNCTION [id number] 08:25:00* Test Item Value Reference Range Comments TOTAL PROTEIN (BEAKER) (test xzob=045) 5.0 gm/dL 6.0-8.3 Specimen slightly hemolyzed ALBUMIN (BEAKER) (test espn=1796) 2.8 g/dL 3.5-5.0 Specimen slightly hemolyzed BILIRUBIN TOTAL (BEAKER) (test yczw=529) 0.6 mg/dL 0.2-1.2 Specimen slightly hemolyzed BILIRUBIN DIRECT (BEAKER) (test znha=694) 0.3 mg/dL 0.1-0.5 Specimen slightly hemolyzed ALKALINE PHOSPHATASE (BEAKER) (test lzdm=216) 94 U/L 40-150 AST (SGOT) (BEAKER) (test tmun=498) 18 U/L 5-34 Specimen slightly hemolyzed ALT (SGPT) (AKER) (test rdyy=550) 8 U/L 6-55 Specimen slightly hemolyzed PROTHROMBIN [id number] 07:33:00* Test Item Value Reference Range Comments PROTIME (AVELINA) (test gtqj=248) 16.1 seconds 11.7-14.7 INR ([facility]) (test urfr=200) 1.3 <=5.9 RECOMMENDED COUMADIN/WARFARIN INR THERAPY RANGESSTANDARD DOSE: 2.0 - 3.0 Inclu eduar: PROPHYLAXIS for venous thrombosis, systemic embolization; TREATMENT for ania ous thrombosis and/or pulmonary embolus.HIGH RISK: Target INR is 2.5-3.5 for pat ients with mechanical heart valves.POCT-GLUCOSE [id number] 06:20:00* Test Item Value Reference Range Comments POC-GLUCOSE METER ([facility]) (test vfzg=6141) 112 mg/dL 70-110 TESTED AT [place] [id number] POCT-GLUCOSE [id number] 01:02:00* Test Item Value Reference Range Comments POC-GLUCOSE METER ([facility]) (test sdlw=9930) 127 mg/dL 70-110 TESTED AT [place] [id number] POCT-GLUCOSE [id number] 17:53:00* Test Item Value Reference Range Comments POC-GLUCOSE METER ([facility]) (test vres=3555) 126 mg/dL 70-110 TESTED AT [place] [id number] POCT-GLUCOSE [id number] 12:36:00* Test Item Value Reference Range Comments POC-GLUCOSE METER ([facility]) (test kgmk=7351) 109 mg/dL 70-110 TESTED AT [address] [address] TACROLIMUS [id number] 12:26:00* Test Item Value Reference Range Comments TACROLIMUS BLOOD ([facility]) (test nuiv=317) 6.7 ng/mL 10.0-20.0 CBC W/PLT COUNT & AUTO [id number] 11:01:00* Test Item Value Reference Range Comments WHITE BLOOD CELL COUNT ([facility]) (test gsta=798) 9.9 K/ L 3.5-10.5 RED BLOOD CELL COUNT (BEAKER) (test xqby=447) 2.50 M/ L 3.93-5.22 HEMOGLOBIN (BEAKER) (test cuxr=072) 7.1 GM/DL 11.2-15.7 HEMATOCRIT (BEAKER) (test impz=286) 22.3 % 34.1-44.9 MEAN CORPUSCULAR VOLUME (BEAKER) (test ofpn=074) 89.2 fL 79.4-94.8 MEAN CORPUSCULAR HEMOGLOBIN (BEAKER) (test utrc=827) 28.4 pg 25.6-32.2 MEAN CORPUSCULAR HEMOGLOBIN CONC (BEAKER) (test tckz=087) 31.8 GM/DL 32.2-35.5 RED CELL DISTRIBUTION WIDTH (BEAKER) (test vyul=923) 18.5 % 11.7-14.4 PLATELET COUNT (BEAKER) (test ussf=723) 218 K/CU MM 150-450 MEAN PLATELET VOLUME (BEAKER) (test liyn=123) 10.3 fL 9.4-12.3 NUCLEATED RED BLOOD CELLS (BEAKER) (test rsnd=844) 0 /100 WBC 0-0 NEUTROPHILS RELATIVE PERCENT (BEAKER) (test ljpx=596) 83 % LYMPHOCYTES RELATIVE PERCENT (BEAKER) (test ohqk=646) 4 % MONOCYTES RELATIVE PERCENT (BEAKER) (test ryjm=662) 6 % EOSINOPHILS RELATIVE PERCENT (BEAKER) (test murj=222) 6 % BASOPHILS RELATIVE PERCENT (BEAKER) (test vrex=073) 0 % NEUTROPHILS ABSOLUTE COUNT (BEAKER) (test xyrj=662) 8.18 K/ L 1.56-6.13 LYMPHOCYTES ABSOLUTE COUNT (BEAKER) (test kude=377) 0.44 K/ L 1.18-3.74 MONOCYTES ABSOLUTE COUNT (BEAKER) (test cdlb=678) 0.55 K/ L 0.24-0.36 EOSINOPHILS ABSOLUTE COUNT (BEAKER) (test imgz=966) 0.57 K/ L 0.04-0.36 BASOPHILS ABSOLUTE COUNT (BEAKER) (test jshi=017) 0.01 K/ L 0.01-0.08 IMMATURE GRANULOCYTES-RELATIVE PERCENT (BEAKER) (test llcc=0660) 2 % 0-1 (MANUAL DIFFERENTIAL)2017-07-20 11:01:00* Test Item Value Reference Range Comments TOTAL COUNTED (BEAKER) (test fscd=8271) WBC MORPHOLOGY (BEAKER) (test kusp=809) Normal PLT MORPHOLOGY (BEAKER) (test wjsc=546) Normal RBC MORPHOLOGY (BEAKER) (test fvfo=427) Normal POCT-GLUCOSE [id number] 06:02:00* Test Item Value Reference Range Comments POC-GLUCOSE METER (BEAKER) (test inxb=7861) 120 mg/dL 70-110 TESTED AT [facility] [address] [address] [id number] 06:02:00* Test Item Value Reference Range Comments PHOSPHORUS (BEAKER) (test uwbe=100) 3.1 mg/dL 2.3-4.7 [id number] 06:02:00* Test Item Value Reference Range Comments MAGNESIUM (BEAKER) (test rnyp=190) 1.8 mg/dL 1.6-2.6 BASIC METABOLIC [id number] 06:02:00* Test Item Value Reference Range Comments SODIUM (BEAKER) (test vpfu=763) 136 meq/L 136-145 POTASSIUM (BEAKER) (test mgov=894) 3.9 meq/L 3.5-5.1 CHLORIDE (BEAKER) (test icja=783) 114 meq/L 98-107 CO2 (BEAKER) (test mkkn=976) 13 meq/L 22-29 BLOOD UREA NITROGEN (BEAKER) (test tgvi=553) 20 mg/dL 7-21 CREATININE (BEAKER) (test hyec=332) 1.45 mg/dL 0.57-1.25 GLUCOSE RANDOM (BEAKER) (test mchc=029) 93 mg/dL 70-105 CALCIUM (BEAKER) (test fjye=451) 8.0 mg/dL 8.4-10.2 EGFR (BEAKER) (test fbvt=0743) 36 mL/min/1.73 sq m ESTIMATED GFR IS NOT ACCURATE CREATININE CLEARANCE IN PREDICTING GLOMERULAR FILTRATION RATE. ESTIMATED GFR IS NOT APPLICABLE FOR DIALYSIS PATIENTS. HEPATIC FUNCTION [id number] 06:02:00* Test Item Value Reference Range Comments TOTAL PROTEIN (BEAKER) (test ngmj=177) 4.7 gm/dL 6.0-8.3 ALBUMIN (BEAKER) (test zbax=0572) 2.8 g/dL 3.5-5.0 BILIRUBIN TOTAL (BEAKER) (test hbxs=207) 0.6 mg/dL 0.2-1.2 BILIRUBIN DIRECT (BEAKER) (test fpwd=402) 0.4 mg/dL 0.1-0.5 ALKALINE PHOSPHATASE (BEAKER) (test hkxc=790) 88 U/L 40-150 AST (SGOT) (BEAKER) (test hlwf=357) 14 U/L 5-34 ALT (SGPT) (BEAKER) (test zesq=544) 8 U/L 6-55 B-TYPE NATRIURETIC FACTOR (BNP)2017-07-20 05:03:00* Test Item Value Reference Range Comments B-TYPE NATRIURETIC PEPTIDE (BEAKER) (test mqll=597) 167 pg/mL 0-100 PROTHROMBIN [id number] 04:47:00* Test Item Value Reference Range Comments PROTIME (BEAKER) (test gjhj=437) 16.7 seconds 11.7-14.7 INR (BEAKER) (test ddyh=375) 1.4 <=5.9 RECOMMENDED COUMADIN/WARFARIN INR THERAPY RANGESSTANDARD DOSE: 2.0 - 3.0 Inclu eduar: PROPHYLAXIS for venous thrombosis, systemic embolization; TREATMENT for ania ous thrombosis and/or pulmonary embolus.HIGH RISK: Target INR is 2.5-3.5 for pat ients with mechanical heart valves.POCT-GLUCOSE [id number] 00:30:00* Test Item Value Reference Range Comments POC-GLUCOSE METER (BEAKER) (test hmqr=2992) 117 mg/dL 70-110 TESTED AT [address] [address] POCT-GLUCOSE [id number] 17:50:00* Test Item Value Reference Range Comments POC-GLUCOSE METER (BEAKER) (test bgfo=4891) 131 mg/dL 70-110 TESTED AT [address] [address] POCT-GLUCOSE [id number] 12:47:00* Test Item Value Reference Range Comments POC-GLUCOSE METER (BEAKER) (test cheb=7051) 123 mg/dL 70-110 TESTED AT [address] [address] TACROLIMUS [id number] 10:50:00* Test Item Value Reference Range Comments TACROLIMUS BLOOD (BEAKER) (test bkum=493) 7.8 ng/mL 10.0-20.0 CBC W/PLT COUNT & AUTO [id number] 06:44:00* Test Item Value Reference Range Comments WHITE BLOOD CELL COUNT (BEAKER) (test vfps=658) 7.9 K/ L 3.5-10.5 RED BLOOD CELL COUNT (BEAKER) (test xtkf=324) 2.44 M/ L 3.93-5.22 HEMOGLOBIN (BEAKER) (test fqeh=530) 7.0 GM/DL 11.2-15.7 HEMATOCRIT (BEAKER) (test zzca=772) 22.0 % 34.1-44.9 MEAN CORPUSCULAR VOLUME (BEAKER) (test pwow=605) 90.2 fL 79.4-94.8 MEAN CORPUSCULAR HEMOGLOBIN (BEAKER) (test lwfx=447) 28.7 pg 25.6-32.2 MEAN CORPUSCULAR HEMOGLOBIN CONC (BEAKER) (test ynky=568) 31.8 GM/DL 32.2-35.5 RED CELL DISTRIBUTION WIDTH (BEAKER) (test mqrj=576) 18.3 % 11.7-14.4 PLATELET COUNT (BEAKER) (test gqrs=986) 199 K/CU MM 150-450 MEAN PLATELET VOLUME (BEAKER) (test edzj=823) 10.2 fL 9.4-12.3 NUCLEATED RED BLOOD CELLS (BEAKER) (test tjnc=038) 0 /100 WBC 0-0 NEUTROPHILS RELATIVE PERCENT (BEAKER) (test qgga=268) 79 % LYMPHOCYTES RELATIVE PERCENT (BEAKER) (test qhnl=614) 3 % MONOCYTES RELATIVE PERCENT (BEAKER) (test jfxe=209) 9 % EOSINOPHILS RELATIVE PERCENT (BEAKER) (test ackw=039) 7 % BASOPHILS RELATIVE PERCENT (BEAKER) (test esyt=162) 0 % NEUTROPHILS ABSOLUTE COUNT (BEAKER) (test joic=604) 6.24 K/ L 1.56-6.13 LYMPHOCYTES ABSOLUTE COUNT (BEAKER) (test bxin=117) 0.27 K/ L 1.18-3.74 MONOCYTES ABSOLUTE COUNT (BEAKER) (test vqlg=886) 0.69 K/ L 0.24-0.36 EOSINOPHILS ABSOLUTE COUNT (BEAKER) (test vjon=709) 0.58 K/ L 0.04-0.36 BASOPHILS ABSOLUTE COUNT (BEAKER) (test wamz=534) 0.01 K/ L 0.01-0.08 IMMATURE GRANULOCYTES-RELATIVE PERCENT (BEAKER) (test imsu=1222) 1 % 0-1 HEPATIC FUNCTION [id number] 06:44:00* Test Item Value Reference Range Comments TOTAL PROTEIN (BEAKER) (test ykgl=866) 4.9 gm/dL 6.0-8.3 ALBUMIN (BEAKER) (test fmxu=8902) 2.9 g/dL 3.5-5.0 BILIRUBIN TOTAL (BEAKER) (test uuxq=487) 0.6 mg/dL 0.2-1.2 BILIRUBIN DIRECT (BEAKER) (test humc=046) 0.3 mg/dL 0.1-0.5 ALKALINE PHOSPHATASE (BEAKER) (test qbqu=132) 87 U/L 40-150 AST (SGOT) (BEAKER) (test ecmb=878) 18 U/L 5-34 ALT (SGPT) (BEAKER) (test pruw=915) 17 U/L 6-55 [id number] 06:43:00* Test Item Value Reference Range Comments PHOSPHORUS (BEAKER) (test nxyh=191) 3.4 mg/dL 2.3-4.7 [id number] 06:43:00* Test Item Value Reference Range Comments MAGNESIUM (BEAKER) (test jntj=586) 1.5 mg/dL 1.6-2.6 BASIC METABOLIC [id number] 06:43:00* Test Item Value Reference Range Comments SODIUM (BEAKER) (test spcc=024) 138 meq/L 136-145 POTASSIUM (BEAKER) (test mwce=419) 3.7 meq/L 3.5-5.1 CHLORIDE (BEAKER) (test xmjs=896) 115 meq/L 98-107 CO2 (BEAKER) (test iyvt=531) 15 meq/L 22-29 BLOOD UREA NITROGEN (BEAKER) (test uhgr=962) 21 mg/dL 7-21 CREATININE (BEAKER) (test fxot=761) 1.57 mg/dL 0.57-1.25 GLUCOSE RANDOM (BEAKER) (test hhvi=432) 106 mg/dL 70-105 CALCIUM (AVELINA) (test xhvv=800) 8.1 mg/dL 8.4-10.2 EGFR (AVELINA) (test gwbi=0507) 33 mL/min/1.73 sq m ESTIMATED GFR IS NOT ACCURATE CREATININE CLEARANCE IN PREDICTING GLOMERULAR FILTRATION RATE. ESTIMATED GFR IS NOT APPLICABLE FOR DIALYSIS PATIENTS. B-TYPE NATRIURETIC FACTOR (BNP)2017-07-19 06:29:00* Test Item Value Reference Range Comments B-TYPE NATRIURETIC PEPTIDE (AVELINA) (test agne=889) 202 pg/mL 0-100 PROTHROMBIN [id number] 06:13:00* Test Item Value Reference Range Comments PROTIME (AVELINA) (test pitl=104) 15.8 seconds 11.7-14.7 INR (AVELINA) (test nrme=218) 1.3 <=5.9 RECOMMENDED COUMADIN/WARFARIN INR THERAPY RANGESSTANDARD DOSE: 2.0 - 3.0 Inclu eduar: PROPHYLAXIS for venous thrombosis, systemic embolization; TREATMENT for ania ous thrombosis and/or pulmonary embolus.HIGH RISK: Target INR is 2.5-3.5 for pat ients with mechanical heart valves.POCT-GLUCOSE [id number] 05:18:00* Test Item Value Reference Range Comments POC-GLUCOSE METER (AVELINA) (test omei=0868) 130 mg/dL 70-110 TESTED AT [address] [address] [address], [id number] 04:24:00FINAL REPORT EXAM: CT of the abdomen and pelvis, without contrast CLINICAL HISTORY: evaluate for ileus TECHNIQUE: CT of the abdomen and pelvis was performed without intravenous contrast administration. This exam was performed according to our departmental dose optimization program which includes automated exposure control, adjustment of the mA and/or kV according to patient's size and/or use of iterative reconstructive technique. COMPARISON: CT abdomen and pelvis 05/14/2016. DISCUSSION: LOWER CHEST: Moderate hiatal hernia. Contrast seen in the distal esophagus. Calcified left lower lobe granuloma. Small left pleural effusion. Bibasilar airspace consolidations with air bronchograms, which may represent pneumonia and/or subsegmental atelectasis. Mild cardiomegaly. Atherosclerotic calcifications of the aorta and coronary arteries. Low-attenuation of the cardiac blood pool seen in the setting of anemia. LIVER: Status post liver transplant.BILE DUCTS: Within normal limits.GALL BLADDER: Absent.PANCREAS: Wi thin normal limits.SPLEEN: Mild splenomegaly.ADRENALS: Within normal limits.KIDN EYS/URETERS: Mild right hydroureteronephrosis to the level of the mid ureter wit hout an obstructing radiopaque stone. Right extrarenal pelvis. Nonspecific bilat eral perinephric stranding. URINARY BLADDER: Distended but otherwise unremarkabl e.REPRODUCTIVE ORGANS: Status post hysterectomy. No adnexal mass. BOWEL/MESENTER Y: Status post ventral hernia repair. Diffuse mesenteric congestion, nonspecific . No dilated bowel loops suggests an obstruction or ileus. Scattered colonic div erticula without acute diverticulitis. No abnormal bowel wall thickening. Nonvis ualization of the appendix but no secondary findings to suggest acute appendicit is.PERITONEUM/RETROPERITONEUM: Trace abdominal free fluid. No free intraperitone al air or fluid collection. VESSELS: Atherosclerotic calcifications of the aorta and branches. LYMPH NODES: No abdominal or pelvic lymphadenopathy.SOFT TISSUES: Postsurgical changes in the anterior abdominal wall from ventral hernia repair with surgical drains in place. Anasarca. Collateral vessels are noted in the ant erior abdominal wall. BONES: Generalized osteopenia. Mild loss of height of L4 v ertebral body involving the superior endplate. Degenerative changes of the visua lized spine. IMPRESSION: Status post ventral hernia repair with postsurgical changes. Moderate hiatal hernia No bowel obstruction or ileus.Mild right hydrou reteronephrosis without obstructing stone, which may be due to a recently passed stone, distended urinary bladder or infection. Clinical correlation is recommen ded.Small left pleural effusion. Bibasilar airspace consolidation which may repr esent pneumonia and/or subsegmental atelectasis. Signed: Dickson Molina MDReport Verified Date/Time: 07/19/2017 04:24:13 Reading Location: [facility] [address] [place] [address] onwi Reading Room Electronically signed by: DICKSON MOLINA MD on 07/19 04:24 AM POCT-GLUCOSE [id number] 00:17:00* Test Item Value Reference Range Comments POC-GLUCOSE METER (BEAKER) (test qawo=1544) 120 mg/dL 70-110 TESTED AT [facility] [address] [facility] [address] CREATININE, RANDOM [id number] 18:35:00* Test Item Value Reference Range Comments CREATININE URINE (BEAKER) (test xcmr=425) 76.6 mg/dL Reference Range: No NormalsSODIUM, RANDOM [id number] 18:35:00* Test Item Value Reference Range Comments SODIUM URINE (BEAKER) (test zwym=707) 79 meq/L Reference Range: No NormalsURINALYSIS W/ REFLEX URINE [id number] 17:58:00 * Test Item Value Reference Range Comments COLOR (BEAKER) (test tiky=005) Yellow CLARITY (BEAKER) (test rvqa=360) Clear SPECIFIC GRAVITY UA (BEAKER) (test rhxd=502) 1.011 1.001-1.035 PH UA (BEAKER) (test tmkw=000) 5.0 5.0-8.0 PROTEIN UA (BEAKER) (test omzm=781) Negative Negative GLUCOSE UA (BEAKER) (test xtlg=030) Negative Negative KETONES UA (BEAKER) (test xuqv=469) Negative Negative BILIRUBIN UA (BEAKER) (test extl=362) Negative Negative BLOOD UA (BEAKER) (test onmk=735) Negative Negative NITRITE UA (BEAKER) (test xzpe=792) Negative Negative LEUKOCYTE ESTERASE UA (BEAKER) (test lelc=253) Trace Negative UROBILINOGEN UA (BEAKER) (test hzrc=463) 0.2 mg/dL 0.2-1.0 RBC UA (BEAKER) (test mjjm=398) 1 /HPF WBC UA (BEAKER) (test rvcc=945) 1 /HPF BACTERIA (BEAKER) (test fvef=795) Rare MUCUS (BEAKER) (test smef=5002) Rare SQUAMOUS EPITHELIAL (BEAKER) (test jxgu=244) 3 /HPF HYALINE CASTS (BEAKER) (test szrr=019) 5 /LPF YEAST (BEAKER) (test wjko=0047) Rare SOURCE(BEAKER) (test peso=8809) BASIC METABOLIC [id number] 11:25:00* Test Item Value Reference Range Comments SODIUM (BEAKER) (test wjqd=527) 141 meq/L 136-145 POTASSIUM (BEAKER) (test cuov=924) 3.9 meq/L 3.5-5.1 Specimen slightly hemolyzed CHLORIDE (BEAKER) (test pohz=298) 115 meq/L 98-107 CO2 (BEAKER) (test cowl=553) 16 meq/L 22-29 BLOOD UREA NITROGEN (BEAKER) (test vend=902) 24 mg/dL 7-21 CREATININE (BEAKER) (test dfhc=238) 1.97 mg/dL 0.57-1.25 Specimen slightly hemolyzed GLUCOSE RANDOM (BEAKER) (test eial=500) 114 mg/dL 70-105 CALCIUM (BEAKER) (test bxoo=628) 8.4 mg/dL 8.4-10.2 EGFR (BEAKER) (test scxt=8899) 25 mL/min/1.73 sq m ESTIMATED GFR IS NOT ACCURATE CREATININE CLEARANCE IN PREDICTING GLOMERULAR FILTRATION RATE. ESTIMATED GFR IS NOT APPLICABLE FOR DIALYSIS PATIENTS. TACROLIMUS [id number] 09:46:00* Test Item Value Reference Range Comments TACROLIMUS BLOOD (BEAKER) (test zupd=643) 8.5 ng/mL 10.0-20.0 HEPATIC FUNCTION [id number] 08:27:00* Test Item Value Reference Range Comments TOTAL PROTEIN (BEAKER) (test zkpt=365) 3.8 gm/dL 6.0-8.3 Specimen markedly hemolyzed ALBUMIN (BEAKER) (test ijov=5082) 1.9 g/dL 3.5-5.0 Specimen markedly hemolyzed BILIRUBIN TOTAL (BEAKER) (test vdcq=395) 0.4 mg/dL 0.2-1.2 Specimen markedly hemolyzed BILIRUBIN DIRECT (BEAKER) (test jwrc=275) < mg/dL 0.1-0.5 Specimen markedly hemolyzed ALKALINE PHOSPHATASE (BEAKER) (test eraj=688) 53 U/L 40-150 AST (SGOT) (BEAKER) (test uxmq=723) 34 U/L 5-34 Specimen markedly hemolyzed ALT (SGPT) (BEAKER) (test xipq=211) 19 U/L 6-55 Specimen markedly hemolyzed [id number] 08:17:00* Test Item Value Reference Range Comments MAGNESIUM (BEAKER) (test sqnr=759) 1.6 mg/dL 1.6-2.6 Specimen markedly hemolyzed [id number] 08:17:00* Test Item Value Reference Range Comments PHOSPHORUS (BEAKER) (test drdn=762) 2.5 mg/dL 2.3-4.7 Specimen markedly hemolyzed PROTHROMBIN [id number] 08:00:00* Test Item Value Reference Range Comments PROTIME (BEAKER) (test lnbn=102) 15.4 seconds 11.7-14.7 INR (BEAKER) (test suck=769) 1.2 <=5.9 RECOMMENDED COUMADIN/WARFARIN INR THERAPY RANGESSTANDARD DOSE: 2.0 - 3.0 Inclu eduar: PROPHYLAXIS for venous thrombosis, systemic embolization; TREATMENT for ania ous thrombosis and/or pulmonary embolus.HIGH RISK: Target INR is 2.5-3.5 for pat ients with mechanical heart valves.CBC W/PLT COUNT & AUTO [id number] 07:54:00* Test Item Value Reference Range Comments WHITE BLOOD CELL COUNT (BEAKER) (test hoep=928) 6.1 K/ L 3.5-10.5 RED BLOOD CELL COUNT (BEAKER) (test gyjc=118) 2.49 M/ L 3.93-5.22 HEMOGLOBIN (BEAKER) (test zsic=399) 7.2 GM/DL 11.2-15.7 HEMATOCRIT (BEAKER) (test cfcv=006) 22.3 % 34.1-44.9 MEAN CORPUSCULAR VOLUME (BEAKER) (test fpmn=472) 89.6 fL 79.4-94.8 MEAN CORPUSCULAR HEMOGLOBIN (BEAKER) (test pyji=588) 28.9 pg 25.6-32.2 MEAN CORPUSCULAR HEMOGLOBIN CONC (BEAKER) (test pccu=295) 32.3 GM/DL 32.2-35.5 RED CELL DISTRIBUTION WIDTH (BEAKER) (test lebd=302) 18.2 % 11.7-14.4 PLATELET COUNT (BEAKER) (test jyxe=894) 160 K/CU MM 150-450 MEAN PLATELET VOLUME (BEAKER) (test srrv=614) 10.2 fL 9.4-12.3 NUCLEATED RED BLOOD CELLS (BEAKER) (test gxpd=244) 0 /100 WBC 0-0 NEUTROPHILS RELATIVE PERCENT (BEAKER) (test nnej=585) 85 % LYMPHOCYTES RELATIVE PERCENT (BEAKER) (test nndu=669) 3 % MONOCYTES RELATIVE PERCENT (BEAKER) (test nnle=615) 6 % EOSINOPHILS RELATIVE PERCENT (BEAKER) (test xjip=761) 6 % BASOPHILS RELATIVE PERCENT (BEAKER) (test rxsl=555) 0 % NEUTROPHILS ABSOLUTE COUNT (BEAKER) (test zevu=181) 5.17 K/ L 1.56-6.13 LYMPHOCYTES ABSOLUTE COUNT (BEAKER) (test tpcg=728) 0.20 K/ L 1.18-3.74 MONOCYTES ABSOLUTE COUNT (BEAKER) (test mrbo=567) 0.34 K/ L 0.24-0.36 EOSINOPHILS ABSOLUTE COUNT (BEAKER) (test rywz=147) 0.34 K/ L 0.04-0.36 BASOPHILS ABSOLUTE COUNT (BEAKER) (test fajh=102) 0.00 K/ L 0.01-0.08 IMMATURE GRANULOCYTES-RELATIVE PERCENT (BEAKER) (test qypr=5062) 1 % 0-1 RAD, ABDOMEN/KUB, 1 VIEW [id number] 11:53:00Reason for exam:->evaluate for distention/ileusFINAL REPORT EXAM: AP abdominal radiograph, 2 images HISTORY PROVIDED: Evaluate for distention, ileus COMPARISON: 07/12/2017 IMPRESSION:The bowel gas pattern is nonspecific but appears nonobstructive without dilated loops of bowel seen. This examination is insensitive for the detection of free air. Multiple calcifications in the pelvis likely represent phleboliths. No acute osseous abnormality. Degenerative changes of the lower lumbar spine and hips are noted. Signed: Mario Bauman MDRhospital for special care Verified Date/Time: 07/17/2017 11:53:06 Reading Location: [facility] Radiology Reading Room , CHEST, 1 VIEW, NON [id number] 11:41:00Reason for exam:->tachypneaFINAL REPORT Chest one view INDICATION: Tachypnea COMPARISON: 04/14/2017 IMPRESSION: There are left greater than right lower lung airspace opacities. Atelectasis possible, but pneumonia or aspiration cannot be excluded. Clinical correlation and short term radiographic follow up is suggested. There is bilateral costophrenic angle blunting. Cardiac silhouette size is exaggerated by technique. The aorta is mildly ectatic/tortuous. Aortic ossifications and degenerative spine changes are present. No pneumothorax is seen. Signed: Yury Parkinson MDReport Verified Date/Time: 07/17/2017 11:41:32 Reading Location: [facility] B[address] Consult Reading Room OLIMUS [id number] 11:36:00* Test Item Value Reference Range Comments TACROLIMUS BLOOD (BEAKER) (test wxws=381) 10.2 ng/mL 10.0-20.0 TACROLIMUS [id number] 11:36:00* Test Item Value Reference Range Comments TACROLIMUS BLOOD (BEAKER) (test ermf=079) 10.0 ng/mL 10.0-20.0 [id number] 05:51:00* Test Item Value Reference Range Comments PHOSPHORUS (BEAKER) (test kuco=610) 3.7 mg/dL 2.3-4.7 [id number] 05:51:00* Test Item Value Reference Range Comments MAGNESIUM (BEAKER) (test dtwq=926) 1.5 mg/dL 1.6-2.6 BASIC METABOLIC [id number] 05:51:00* Test Item Value Reference Range Comments SODIUM (BEAKER) (test esdp=809) 140 meq/L 136-145 POTASSIUM (BEAKER) (test nkjh=865) 4.2 meq/L 3.5-5.1 CHLORIDE (BEAKER) (test kktv=249) 113 meq/L 98-107 CO2 (BEAKER) (test lmmg=033) 17 meq/L 22-29 BLOOD UREA NITROGEN (BEAKER) (test iqae=097) 20 mg/dL 7-21 CREATININE (BEAKER) (test rzic=742) 1.64 mg/dL 0.57-1.25 GLUCOSE RANDOM (BEAKER) (test lutw=795) 120 mg/dL 70-105 CALCIUM (BEAKER) (test eugf=157) 8.3 mg/dL 8.4-10.2 EGFR (BEAKER) (test vzbk=5666) 31 mL/min/1.73 sq m ESTIMATED GFR IS NOT ACCURATE CREATININE CLEARANCE IN PREDICTING GLOMERULAR FILTRATION RATE. ESTIMATED GFR IS NOT APPLICABLE FOR DIALYSIS PATIENTS. HEPATIC FUNCTION [id number] 05:51:00* Test Item Value Reference Range Comments TOTAL PROTEIN (BEAKER) (test ckdy=388) 5.4 gm/dL 6.0-8.3 ALBUMIN (BEAKER) (test thgf=3383) 3.3 g/dL 3.5-5.0 BILIRUBIN TOTAL (BEAKER) (test fovq=581) 1.0 mg/dL 0.2-1.2 BILIRUBIN DIRECT (BEAKER) (test nomt=459) 0.5 mg/dL 0.1-0.5 ALKALINE PHOSPHATASE (BEAKER) (test dbav=866) 78 U/L 40-150 AST (SGOT) (BEAKER) (test ehwc=602) 21 U/L 5-34 ALT (SGPT) (BEAKER) (test vlts=427) 42 U/L 6-55 POCT-GLUCOSE [id number] 05:34:00* Test Item Value Reference Range Comments POC-GLUCOSE METER (BEAKER) (test aqjg=8145) 154 mg/dL 70-110 TESTED AT [facility] [address] [place] [address] CBC W/PLT COUNT & AUTO [id number] 05:28:00* Test Item Value Reference Range Comments WHITE BLOOD CELL COUNT (BEAKER) (test tkbu=186) 6.4 K/ L 3.5-10.5 RED BLOOD CELL COUNT (BEAKER) (test qrvl=177) 2.71 M/ L 3.93-5.22 HEMOGLOBIN (BEAKER) (test gutg=660) 7.6 GM/DL 11.2-15.7 HEMATOCRIT (BEAKER) (test snjz=151) 23.6 % 34.1-44.9 MEAN CORPUSCULAR VOLUME (BEAKER) (test aeou=684) 87.1 fL 79.4-94.8 MEAN CORPUSCULAR HEMOGLOBIN (BEAKER) (test izfk=906) 28.0 pg 25.6-32.2 MEAN CORPUSCULAR HEMOGLOBIN CONC (BEAKER) (test mfaf=286) 32.2 GM/DL 32.2-35.5 RED CELL DISTRIBUTION WIDTH (BEAKER) (test pvna=233) 17.1 % 11.7-14.4 PLATELET COUNT (BEAKER) (test esms=074) 176 K/CU MM 150-450 MEAN PLATELET VOLUME (BEAKER) (test bmah=016) 10.1 fL 9.4-12.3 NUCLEATED RED BLOOD CELLS (BEAKER) (test ipdm=459) 0 /100 WBC 0-0 NEUTROPHILS RELATIVE PERCENT (BEAKER) (test qmqp=472) 84 % LYMPHOCYTES RELATIVE PERCENT (BEAKER) (test vwyq=706) 3 % MONOCYTES RELATIVE PERCENT (BEAKER) (test ffmk=152) 8 % EOSINOPHILS RELATIVE PERCENT (BEAKER) (test flrb=454) 5 % BASOPHILS RELATIVE PERCENT (BEAKER) (test vfxe=405) 0 % NEUTROPHILS ABSOLUTE COUNT (BEAKER) (test qwxm=689) 5.39 K/ L 1.56-6.13 LYMPHOCYTES ABSOLUTE COUNT (BEAKER) (test mvug=379) 0.19 K/ L 1.18-3.74 MONOCYTES ABSOLUTE COUNT (BEAKER) (test ojnj=623) 0.48 K/ L 0.24-0.36 EOSINOPHILS ABSOLUTE COUNT (BEAKER) (test tqjq=647) 0.31 K/ L 0.04-0.36 BASOPHILS ABSOLUTE COUNT (BEAKER) (test qchk=107) 0.01 K/ L 0.01-0.08 IMMATURE GRANULOCYTES-RELATIVE PERCENT (BEAKER) (test iuqe=9933) 1 % 0-1 PROTHROMBIN [id number] 05:19:00* Test Item Value Reference Range Comments PROTIME (BEAKER) (test rwjx=163) 15.2 seconds 11.7-14.7 INR (BEAKER) (test vlrk=987) 1.2 <=5.9 RECOMMENDED COUMADIN/WARFARIN INR THERAPY RANGESSTANDARD DOSE: 2.0 - 3.0 Inclu eduar: PROPHYLAXIS for venous thrombosis, systemic embolization; TREATMENT for ania ous thrombosis and/or pulmonary embolus.HIGH RISK: Target INR is 2.5-3.5 for pat ients with mechanical heart valves.BASIC METABOLIC [id number] 15:28:00* Test Item Value Reference Range Comments SODIUM (BEAKER) (test olaf=919) 138 meq/L 136-145 POTASSIUM (BEAKER) (test nznw=922) 4.0 meq/L 3.5-5.1 CHLORIDE (BEAKER) (test kkyj=146) 111 meq/L 98-107 CO2 (BEAKER) (test cudc=872) 18 meq/L 22-29 BLOOD UREA NITROGEN (BEAKER) (test nbik=230) 21 mg/dL 7-21 CREATININE (BEAKER) (test apta=372) 1.75 mg/dL 0.57-1.25 GLUCOSE RANDOM (BEAKER) (test fjug=423) 109 mg/dL 70-105 CALCIUM (BEAKER) (test iziw=541) 8.7 mg/dL 8.4-10.2 EGFR (BEAKER) (test lral=0546) 29 mL/min/1.73 sq m ESTIMATED GFR IS NOT ACCURATE CREATININE CLEARANCE IN PREDICTING GLOMERULAR FILTRATION RATE. ESTIMATED GFR IS NOT APPLICABLE FOR DIALYSIS PATIENTS. [id number] 15:26:00* Test Item Value Reference Range Comments PHOSPHORUS (BEAKER) (test dguw=538) 3.4 mg/dL 2.3-4.7 [id number] 15:26:00* Test Item Value Reference Range Comments MAGNESIUM (BEAKER) (test akub=018) 1.7 mg/dL 1.6-2.6 CBC W/PLT COUNT & AUTO [id number] 15:12:00* Test Item Value Reference Range Comments WHITE BLOOD CELL COUNT (BEAKER) (test rnae=025) 5.9 K/ L 3.5-10.5 RED BLOOD CELL COUNT (BEAKER) (test jwuw=960) 2.93 M/ L 3.93-5.22 HEMOGLOBIN (BEAKER) (test adhe=472) 8.4 GM/DL 11.2-15.7 HEMATOCRIT (BEAKER) (test jyvb=665) 25.8 % 34.1-44.9 MEAN CORPUSCULAR VOLUME (BEAKER) (test iwdg=043) 88.1 fL 79.4-94.8 MEAN CORPUSCULAR HEMOGLOBIN (BEAKER) (test cixh=799) 28.7 pg 25.6-32.2 MEAN CORPUSCULAR HEMOGLOBIN CONC (BEAKER) (test grfw=131) 32.6 GM/DL 32.2-35.5 RED CELL DISTRIBUTION WIDTH (BEAKER) (test hkxt=344) 16.7 % 11.7-14.4 PLATELET COUNT (BEAKER) (test xdam=587) 180 K/CU MM 150-450 MEAN PLATELET VOLUME (BEAKER) (test aogd=401) 9.8 fL 9.4-12.3 NUCLEATED RED BLOOD CELLS (BEAKER) (test lmoj=672) 0 /100 WBC 0-0 NEUTROPHILS RELATIVE PERCENT (BEAKER) (test lfph=585) 85 % LYMPHOCYTES RELATIVE PERCENT (BEAKER) (test xxqu=794) 3 % MONOCYTES RELATIVE PERCENT (BEAKER) (test pxtw=654) 7 % EOSINOPHILS RELATIVE PERCENT (BEAKER) (test ympc=738) 4 % BASOPHILS RELATIVE PERCENT (BEAKER) (test nrrl=350) 0 % NEUTROPHILS ABSOLUTE COUNT (BEAKER) (test bvhh=085) 4.97 K/ L 1.56-6.13 LYMPHOCYTES ABSOLUTE COUNT (BEAKER) (test owrs=268) 0.17 K/ L 1.18-3.74 MONOCYTES ABSOLUTE COUNT (BEAKER) (test jxgu=321) 0.42 K/ L 0.24-0.36 EOSINOPHILS ABSOLUTE COUNT (BEAKER) (test hnzs=232) 0.25 K/ L 0.04-0.36 BASOPHILS ABSOLUTE COUNT (BEAKER) (test xgfk=617) 0.00 K/ L 0.01-0.08 IMMATURE GRANULOCYTES-RELATIVE PERCENT (BEAKER) (test jebk=9857) 1 % 0-1 POCT-GLUCOSE [id number] 12:44:00* Test Item Value Reference Range Comments POC-GLUCOSE METER (BEAKER) (test rewg=4442) 127 mg/dL 70-110 TESTED AT [place] [address] TACROLIMUS [id number] 11:19:00* Test Item Value Reference Range Comments TACROLIMUS BLOOD (BEAKER) (test okao=910) 9.8 ng/mL 10.0-20.0 POCT-GLUCOSE [id number] 00:31:00* Test Item Value Reference Range Comments POC-GLUCOSE METER (BEAKER) (test vgfg=8079) 113 mg/dL 70-110 TESTED AT [place] [id number] TACROLIMUS [id number] 11:43:00* Test Item Value Reference Range Comments TACROLIMUS BLOOD (BEAKER) (test kqgh=505) 9.1 ng/mL 10.0-20.0 CBC W/PLT COUNT & AUTO [id number] 07:27:00* Test Item Value Reference Range Comments WHITE BLOOD CELL COUNT (BEAKER) (test utvk=486) 6.5 K/ L 3.5-10.5 RED BLOOD CELL COUNT (BEAKER) (test ippg=321) 2.52 M/ L 3.93-5.22 HEMOGLOBIN (BEAKER) (test phli=172) 7.1 GM/DL 11.2-15.7 HEMATOCRIT (BEAKER) (test sjdr=740) 22.9 % 34.1-44.9 MEAN CORPUSCULAR VOLUME (BEAKER) (test jcsb=900) 90.9 fL 79.4-94.8 MEAN CORPUSCULAR HEMOGLOBIN (BEAKER) (test tqog=146) 28.2 pg 25.6-32.2 MEAN CORPUSCULAR HEMOGLOBIN CONC (BEAKER) (test ktpb=261) 31.0 GM/DL 32.2-35.5 RED CELL DISTRIBUTION WIDTH (BEAKER) (test fmrg=326) 16.7 % 11.7-14.4 PLATELET COUNT (BEAKER) (test orhe=233) 129 K/CU MM 150-450 MEAN PLATELET VOLUME (BEAKER) (test repy=213) 10.1 fL 9.4-12.3 NUCLEATED RED BLOOD CELLS (BEAKER) (test clci=670) 0 /100 WBC 0-0 NEUTROPHILS RELATIVE PERCENT (BEAKER) (test dvsv=514) 87 % LYMPHOCYTES RELATIVE PERCENT (BEAKER) (test hyba=126) 3 % MONOCYTES RELATIVE PERCENT (BEAKER) (test qalc=721) 7 % EOSINOPHILS RELATIVE PERCENT (BEAKER) (test tuoo=625) 2 % BASOPHILS RELATIVE PERCENT (BEAKER) (test jzkv=156) 0 % NEUTROPHILS ABSOLUTE COUNT (BEAKER) (test pfgv=595) 5.65 K/ L 1.56-6.13 LYMPHOCYTES ABSOLUTE COUNT (BEAKER) (test kbkz=607) 0.20 K/ L 1.18-3.74 MONOCYTES ABSOLUTE COUNT (BEAKER) (test uodc=227) 0.46 K/ L 0.24-0.36 EOSINOPHILS ABSOLUTE COUNT (BEAKER) (test riuo=748) 0.14 K/ L 0.04-0.36 BASOPHILS ABSOLUTE COUNT (BEAKER) (test erdi=628) 0.01 K/ L 0.01-0.08 IMMATURE GRANULOCYTES-RELATIVE PERCENT (BEAKER) (test yxbp=5977) 1 % 0-1 BASIC METABOLIC [id number] 06:55:00* Test Item Value Reference Range Comments SODIUM (BEAKER) (test dnab=232) 132 meq/L 136-145 POTASSIUM (BEAKER) (test acvw=656) 4.6 meq/L 3.5-5.1 CHLORIDE (BEAKER) (test ccqq=468) 108 meq/L 98-107 CO2 (BEAKER) (test eqep=680) 18 meq/L 22-29 BLOOD UREA NITROGEN (BEAKER) (test kopk=182) 22 mg/dL 7-21 CREATININE (BEAKER) (test qjkm=941) 1.78 mg/dL 0.57-1.25 GLUCOSE RANDOM (BEAKER) (test epun=387) 216 mg/dL 70-105 CALCIUM (BEAKER) (test pfsy=107) 8.1 mg/dL 8.4-10.2 EGFR (BEAKER) (test xfqj=3561) 28 mL/min/1.73 sq m ESTIMATED GFR IS NOT ACCURATE CREATININE CLEARANCE IN PREDICTING GLOMERULAR FILTRATION RATE. ESTIMATED GFR IS NOT APPLICABLE FOR DIALYSIS PATIENTS. [id number] 06:51:00* Test Item Value Reference Range Comments PHOSPHORUS (BEAKER) (test dyik=568) 3.9 mg/dL 2.3-4.7 [id number] 06:51:00* Test Item Value Reference Range Comments MAGNESIUM (BEAKER) (test tmrf=281) 1.7 mg/dL 1.6-2.6 POCT-GLUCOSE [id number] 00:28:00* Test Item Value Reference Range Comments POC-GLUCOSE METER (BEAKER) (test zrkz=1009) 134 mg/dL 70-110 TESTED AT [facility] [address] [facility] [address] BASIC METABOLIC [id number] 23:01:00* Test Item Value Reference Range Comments SODIUM (BEAKER) (test uzgv=450) 135 meq/L 136-145 POTASSIUM (BEAKER) (test ahcf=854) 4.6 meq/L 3.5-5.1 CHLORIDE (BEAKER) (test uyhq=954) 111 meq/L 98-107 CO2 (BEAKER) (test xbnb=892) 18 meq/L 22-29 BLOOD UREA NITROGEN (BEAKER) (test qbnq=245) 23 mg/dL 7-21 CREATININE (BEAKER) (test omrx=040) 1.83 mg/dL 0.57-1.25 GLUCOSE RANDOM (BEAKER) (test orhm=103) 131 mg/dL 70-105 CALCIUM (BEAKER) (test fvbp=517) 7.7 mg/dL 8.4-10.2 EGFR (BEAKER) (test musz=9035) 27 mL/min/1.73 sq m ESTIMATED GFR IS NOT ACCURATE CREATININE CLEARANCE IN PREDICTING GLOMERULAR FILTRATION RATE. ESTIMATED GFR IS NOT APPLICABLE FOR DIALYSIS PATIENTS. [id number] 22:50:00* Test Item Value Reference Range Comments MAGNESIUM (BEAKER) (test rvjj=022) 1.8 mg/dL 1.6-2.6 URINALYSIS W/ [id number] 15:25:00* Test Item Value Reference Range Comments COLOR (BEAKER) (test juil=689) Yellow CLARITY (BEAKER) (test kllg=567) Hazy SPECIFIC GRAVITY UA (BEAKER) (test sutw=176) 1.009 1.001-1.035 PH UA (BEAKER) (test fgvk=336) 5.0 5.0-8.0 PROTEIN UA (BEAKER) (test hyyh=565) 10 mg/dL Negative GLUCOSE UA (BEAKER) (test ktlh=801) Negative Negative KETONES UA (BEAKER) (test sqzk=556) Negative Negative BILIRUBIN UA (BEAKER) (test vkqa=083) Negative Negative BLOOD UA (BEAKER) (test bskv=603) Trace Negative NITRITE UA (BEAKER) (test bddu=993) Negative Negative LEUKOCYTE ESTERASE UA (BEAKER) (test buoy=475) Negative Negative UROBILINOGEN UA (BEAKER) (test jxdp=722) 0.2 mg/dL 0.2-1.0 RBC UA (BEAKER) (test knee=174) 9 /HPF WBC UA (BEAKER) (test uvlh=833) 8 /HPF BACTERIA (BEAKER) (test vlxy=113) Rare MUCUS (BEAKER) (test nvqx=0461) Moderate SQUAMOUS EPITHELIAL (BEAKER) (test vkmh=924) 4 /HPF HYALINE CASTS (BEAKER) (test hjpk=605) 292 /LPF SOURCE(BEAKER) (test hvap=5862) SODIUM, RANDOM [id number] 15:05:00* Test Item Value Reference Range Comments SODIUM URINE (BEAKER) (test kxjp=325) 53 meq/L Reference Range: No NormalsTACROLIMUS [id number] 13:40:00* Test Item Value Reference Range Comments TACROLIMUS BLOOD (BEAKER) (test szru=131) 6.1 ng/mL 10.0-20.0 CBC W/PLT COUNT & AUTO [id number] 10:02:00* Test Item Value Reference Range Comments WHITE BLOOD CELL COUNT (BEAKER) (test mivo=787) 6.0 K/ L 3.5-10.5 RED BLOOD CELL COUNT (BEAKER) (test ffyb=855) 2.12 M/ L 3.93-5.22 HEMOGLOBIN (BEAKER) (test wxeo=284) 6.0 GM/DL 11.2-15.7 HEMATOCRIT (BEAKER) (test vwds=311) 19.0 % 34.1-44.9 MEAN CORPUSCULAR VOLUME (BEAKER) (test igyr=576) 89.6 fL 79.4-94.8 MEAN CORPUSCULAR HEMOGLOBIN (BEAKER) (test tqbq=724) 28.3 pg 25.6-32.2 MEAN CORPUSCULAR HEMOGLOBIN CONC (BEAKER) (test tpwg=812) 31.6 GM/DL 32.2-35.5 RED CELL DISTRIBUTION WIDTH (BEAKER) (test nsoy=060) 16.9 % 11.7-14.4 PLATELET COUNT (BEAKER) (test hwkf=263) 115 K/CU MM 150-450 MEAN PLATELET VOLUME (BEAKER) (test yycx=837) 10.4 fL 9.4-12.3 NUCLEATED RED BLOOD CELLS (BEAKER) (test qadx=738) 0 /100 WBC 0-0 NEUTROPHILS RELATIVE PERCENT (BEAKER) (test arry=827) 86 % LYMPHOCYTES RELATIVE PERCENT (BEAKER) (test watb=985) 3 % MONOCYTES RELATIVE PERCENT (BEAKER) (test fqiv=708) 10 % EOSINOPHILS RELATIVE PERCENT (BEAKER) (test vykc=403) 0 % BASOPHILS RELATIVE PERCENT (BEAKER) (test cszo=442) 0 % NEUTROPHILS ABSOLUTE COUNT (BEAKER) (test pnrp=541) 5.19 K/ L 1.56-6.13 LYMPHOCYTES ABSOLUTE COUNT (BEAKER) (test ugwy=478) 0.20 K/ L 1.18-3.74 MONOCYTES ABSOLUTE COUNT (BEAKER) (test jpxn=402) 0.58 K/ L 0.24-0.36 EOSINOPHILS ABSOLUTE COUNT (BEAKER) (test ulpu=063) 0.02 K/ L 0.04-0.36 BASOPHILS ABSOLUTE COUNT (BEAKER) (test puuy=836) 0.01 K/ L 0.01-0.08 IMMATURE GRANULOCYTES-RELATIVE PERCENT (BEAKER) (test cctt=2158) 1 % 0-1 BASIC METABOLIC [id number] 07:46:00* Test Item Value Reference Range Comments SODIUM (BEAKER) (test tmzv=319) 134 meq/L 136-145 POTASSIUM (BEAKER) (test dgkk=793) 4.6 meq/L 3.5-5.1 CHLORIDE (BEAKER) (test moxl=831) 111 meq/L 98-107 CO2 (BEAKER) (test fcdb=130) 18 meq/L 22-29 BLOOD UREA NITROGEN (BEAKER) (test tazm=420) 23 mg/dL 7-21 CREATININE (BEAKER) (test xpou=540) 1.65 mg/dL 0.57-1.25 GLUCOSE RANDOM (BEAKER) (test ppaw=571) 139 mg/dL 70-105 CALCIUM (BEAKER) (test nosb=531) 7.9 mg/dL 8.4-10.2 EGFR (BEAKER) (test upfj=5685) 31 mL/min/1.73 sq m ESTIMATED GFR IS NOT ACCURATE CREATININE CLEARANCE IN PREDICTING GLOMERULAR FILTRATION RATE. ESTIMATED GFR IS NOT APPLICABLE FOR DIALYSIS PATIENTS. [id number] 07:17:00* Test Item Value Reference Range Comments PHOSPHORUS (BEAKER) (test rrrh=035) 3.9 mg/dL 2.3-4.7 [id number] 07:17:00* Test Item Value Reference Range Comments MAGNESIUM (BEAKER) (test sgho=282) 2.2 mg/dL 1.6-2.6 BASIC METABOLIC [id number] 17:44:00* Test Item Value Reference Range Comments SODIUM (BEAKER) (test pxyg=541) 137 meq/L 136-145 POTASSIUM (BEAKER) (test zabd=148) 4.6 meq/L 3.5-5.1 CHLORIDE (BEAKER) (test vhmm=832) 115 meq/L 98-107 CO2 (BEAKER) (test moqj=269) 16 meq/L 22-29 BLOOD UREA NITROGEN (BEAKER) (test fdea=607) 22 mg/dL 7-21 CREATININE (BEAKER) (test cpxi=172) 1.38 mg/dL 0.57-1.25 GLUCOSE RANDOM (BEAKER) (test gddj=338) 111 mg/dL 70-105 CALCIUM (BEAKER) (test ldcp=630) 7.3 mg/dL 8.4-10.2 EGFR (BEAKER) (test xxqw=4055) 38 mL/min/1.73 sq m ESTIMATED GFR IS NOT ACCURATE CREATININE CLEARANCE IN PREDICTING GLOMERULAR FILTRATION RATE. ESTIMATED GFR IS NOT APPLICABLE FOR DIALYSIS PATIENTS. CBC W/PLT COUNT & AUTO [id number] 11:07:00* Test Item Value Reference Range Comments WHITE BLOOD CELL COUNT (BEAKER) (test vmii=779) 17.9 K/ L 3.5-10.5 RED BLOOD CELL COUNT (BEAKER) (test nuah=332) 3.02 M/ L 3.93-5.22 HEMOGLOBIN (BEAKER) (test bcmf=570) 8.4 GM/DL 11.2-15.7 HEMATOCRIT (BEAKER) (test uqwc=285) 26.1 % 34.1-44.9 MEAN CORPUSCULAR VOLUME (BEAKER) (test cigh=014) 86.4 fL 79.4-94.8 MEAN CORPUSCULAR HEMOGLOBIN (BEAKER) (test wpek=532) 27.8 pg 25.6-32.2 MEAN CORPUSCULAR HEMOGLOBIN CONC (BEAKER) (test bzzc=948) 32.2 GM/DL 32.2-35.5 RED CELL DISTRIBUTION WIDTH (BEAKER) (test yuly=472) 15.7 % 11.7-14.4 PLATELET COUNT (BEAKER) (test jwyb=224) 212 K/CU MM 150-450 MEAN PLATELET VOLUME (BEAKER) (test ztmm=380) 10.0 fL 9.4-12.3 NUCLEATED RED BLOOD CELLS (BEAKER) (test fedq=601) 0 /100 WBC 0-0 NEUTROPHILS RELATIVE PERCENT (BEAKER) (test pbuq=198) 86 % LYMPHOCYTES RELATIVE PERCENT (BEAKER) (test dero=364) 3 % MONOCYTES RELATIVE PERCENT (BEAKER) (test psrj=632) 11 % EOSINOPHILS RELATIVE PERCENT (BEAKER) (test afkb=112) 0 % BASOPHILS RELATIVE PERCENT (BEAKER) (test ygmj=082) 0 % NEUTROPHILS ABSOLUTE COUNT (BEAKER) (test ijzy=321) 15.38 K/ L 1.56-6.13 LYMPHOCYTES ABSOLUTE COUNT (BEAKER) (test yhbv=430) 0.48 K/ L 1.18-3.74 MONOCYTES ABSOLUTE COUNT (BEAKER) (test detx=592) 1.90 K/ L 0.24-0.36 EOSINOPHILS ABSOLUTE COUNT (BEAKER) (test pbae=813) 0.00 K/ L 0.04-0.36 BASOPHILS ABSOLUTE COUNT (BEAKER) (test tyhq=290) 0.02 K/ L 0.01-0.08 IMMATURE GRANULOCYTES-RELATIVE PERCENT (BEAKER) (test urva=5618) 0 % 0-1 TACROLIMUS [id number] 10:27:00* Test Item Value Reference Range Comments TACROLIMUS BLOOD (BEAKER) (test mmpo=963) 5.9 ng/mL 10.0-20.0 BLOOD GAS, [id number] 05:27:00* Test Item Value Reference Range Comments PH ARTERIAL (BEAKER) (test rokb=178) 7.21 7.35-7.45 PCO2 ARTERIAL (BEAKER) (test yris=532) 49 mmHg 35-45 PO2 ARTERIAL (BEAKER) (test ziht=116) 236 mmHg 80-90 O2 SATURATION ARTERIAL (BEAKER) (test covr=481) 99.3 % 96.0-97.0 HCO3 ARTERIAL (BEAKER) (test rann=753) 19 mmol/L 21-29 BASE EXCESS ARTERIAL (BEAKER) (test ltfz=988) -8.2 mmol/L -2.0-3.0 PATIENT TEMPERATURE (BEAKER) (test fksh=1845) 37.0 C FIO2 (BEAKER) (test ccyz=0118) 32.0 % [id number] 04:27:00* Test Item Value Reference Range Comments PHOSPHORUS (BEAKER) (test objv=421) 5.0 mg/dL 2.3-4.7 [id number] 04:27:00* Test Item Value Reference Range Comments MAGNESIUM (BEAKER) (test wyky=146) 1.4 mg/dL 1.6-2.6 BASIC METABOLIC [id number] 04:27:00* Test Item Value Reference Range Comments SODIUM (BEAKER) (test psjs=423) 136 meq/L 136-145 POTASSIUM (BEAKER) (test qnmt=335) 5.6 meq/L 3.5-5.1 CHLORIDE (BEAKER) (test pnpl=341) 112 meq/L 98-107 CO2 (BEAKER) (test jqoi=250) 17 meq/L 22-29 BLOOD UREA NITROGEN (BEAKER) (test sgzk=743) 21 mg/dL 7-21 CREATININE (BEAKER) (test jxst=152) 1.20 mg/dL 0.57-1.25 GLUCOSE RANDOM (BEAKER) (test ergm=733) 136 mg/dL 70-105 CALCIUM (BEAKER) (test ttkb=230) 8.2 mg/dL 8.4-10.2 EGFR (BEAKER) (test vxcp=9614) 45 mL/min/1.73 sq m ESTIMATED GFR IS NOT ACCURATE CREATININE CLEARANCE IN PREDICTING GLOMERULAR FILTRATION RATE. ESTIMATED GFR IS NOT APPLICABLE FOR DIALYSIS PATIENTS. HEPATIC FUNCTION [id number] 04:26:00* Test Item Value Reference Range Comments TOTAL PROTEIN (BEAKER) (test izqh=790) 4.9 gm/dL 6.0-8.3 ALBUMIN (BEAKER) (test uzan=3302) 3.4 g/dL 3.5-5.0 BILIRUBIN TOTAL (BEAKER) (test vocs=918) 1.0 mg/dL 0.2-1.2 BILIRUBIN DIRECT (BEAKER) (test lwly=093) 0.6 mg/dL 0.1-0.5 ALKALINE PHOSPHATASE (BEAKER) (test eucu=977) 48 U/L 40-150 AST (SGOT) (BEAKER) (test tohp=890) 63 U/L 5-34 ALT (SGPT) (BEAKER) (test sxib=379) 50 U/L 6-55 BASIC METABOLIC [id number] 00:51:00* Test Item Value Reference Range Comments SODIUM (BEAKER) (test tcav=894) 130 meq/L 136-145 POTASSIUM (BEAKER) (test ikfm=428) 6.2 meq/L 3.5-5.1 CHLORIDE (BEAKER) (test igzi=447) 110 meq/L 98-107 CO2 (BEAKER) (test jobt=748) 14 meq/L 22-29 BLOOD UREA NITROGEN (BEAKER) (test rlnu=864) 19 mg/dL 7-21 CREATININE (BEAKER) (test yhda=857) 1.04 mg/dL 0.57-1.25 GLUCOSE RANDOM (BEAKER) (test lgac=537) 173 mg/dL 70-105 CALCIUM (BEAKER) (test fcwh=820) 8.0 mg/dL 8.4-10.2 EGFR (BEAKER) (test exhu=9684) 53 mL/min/1.73 sq m ESTIMATED GFR IS NOT ACCURATE CREATININE CLEARANCE IN PREDICTING GLOMERULAR FILTRATION RATE. ESTIMATED GFR IS NOT APPLICABLE FOR DIALYSIS PATIENTS. CBC W/PLT COUNT & AUTO [id number] 00:46:00* Test Item Value Reference Range Comments WHITE BLOOD CELL COUNT (BEAKER) (test ebed=694) 22.6 K/ L 3.5-10.5 RED BLOOD CELL COUNT (BEAKER) (test hrjr=742) 3.24 M/ L 3.93-5.22 HEMOGLOBIN (BEAKER) (test gquy=007) 9.1 GM/DL 11.2-15.7 HEMATOCRIT (BEAKER) (test lwdc=877) 28.2 % 34.1-44.9 MEAN CORPUSCULAR VOLUME (BEAKER) (test xwog=739) 87.0 fL 79.4-94.8 MEAN CORPUSCULAR HEMOGLOBIN (BEAKER) (test nohw=353) 28.1 pg 25.6-32.2 MEAN CORPUSCULAR HEMOGLOBIN CONC (BEAKER) (test juvw=738) 32.3 GM/DL 32.2-35.5 RED CELL DISTRIBUTION WIDTH (BEAKER) (test xbjr=798) 15.4 % 11.7-14.4 PLATELET COUNT (BEAKER) (test jazo=891) 247 K/CU MM 150-450 MEAN PLATELET VOLUME (BEAKER) (test mbgu=423) 10.2 fL 9.4-12.3 NUCLEATED RED BLOOD CELLS (BEAKER) (test etay=540) 0 /100 WBC 0-0 IMMATURE GRANULOCYTES-RELATIVE PERCENT (BEAKER) (test fihu=3682) 0 % 0-1 (MANUAL DIFFERENTIAL)2017-07-13 00:46:00* Test Item Value Reference Range Comments NEUTROPHILS - REL (DIFF) (BEAKER) (test dnng=8777) 88 % LYMPHOCYTES - REL (DIFF) (BEAKER) (test mqca=6481) 1 % MONOCYTES - REL (DIFF) (BEAKER) (test mvqw=1025) 7 % BANDS - REL (DIFF) (BEAKER) (test cwfq=6753) 4 % 0-10 NEUTROPHILS - ABS (DIFF) (BEAKER) (test njbi=3417) 19.89 K/ L 1.80-8.00 LYMPHOCYTES - ABS (DIFF) (BEAKER) (test bcir=4892) 0.23 K/ L 1.48-4.50 MONOCYTES - ABS (DIFF) (BEAKER) (test sosh=0890) 1.58 K/ L 0.00-1.30 BANDS-ABS (DIFF) (BEAKER) (test gpkj=2681) 0.9 K/ L 0.0-0.8 TOTAL COUNTED (BEAKER) (test cshc=9113) 100 BANDS + SEGMENTED NEUTROPHILS (BEAKER) (test wzwo=4711) 20.79 WBC MORPHOLOGY (BEAKER) (test hcnj=107) Normal PLT MORPHOLOGY (BEAKER) (test qfmb=767) Normal RBC MORPHOLOGY (BEAKER) (test oyly=199) Normal [id number] 23:46:00* Test Item Value Reference Range Comments PHOSPHORUS (BEAKER) (test gshi=568) 4.8 mg/dL 2.3-4.7 HEPATIC FUNCTION [id number] 23:46:00* Test Item Value Reference Range Comments TOTAL PROTEIN (BEAKER) (test lpwa=002) 5.2 gm/dL 6.0-8.3 ALBUMIN (BEAKER) (test dkqo=1369) 3.7 g/dL 3.5-5.0 BILIRUBIN TOTAL (BEAKER) (test wmkl=802) 2.1 mg/dL 0.2-1.2 BILIRUBIN DIRECT (BEAKER) (test uxaa=883) 1.0 mg/dL 0.1-0.5 ALKALINE PHOSPHATASE (BEAKER) (test zbkb=791) 51 U/L 40-150 AST (SGOT) (BEAKER) (test wwlz=968) 63 U/L 5-34 ALT (SGPT) (BEAKER) (test fogd=673) 45 U/L 6-55 [id number] 23:28:00* Test Item Value Reference Range Comments PROTIME (BEAKER) (test dbmp=277) 15.6 seconds 11.7-14.7 INR (BEAKER) (test xmdz=286) 1.2 <=5.9 PARTIAL THROMBOPLASTIN TIME (BEAKER) (test jtrg=700) 31.4 seconds 22.5-36.0 RECOMMENDED COUMADIN/WARFARIN INR THERAPY RANGESSTANDARD DOSE: 2.0 - 3.0 Inclu eduar: PROPHYLAXIS for venous thrombosis, systemic embolization; TREATMENT for ania ous thrombosis and/or pulmonary embolus.HIGH RISK: Target INR is 2.5-3.5 for pat ients with mechanical heart valves.BLOOD GAS, [id number] 22:58:00* Test Item Value Reference Range Comments PH ARTERIAL (BEAKER) (test osqp=463) 7.19 7.35-7.45 PCO2 ARTERIAL (BEAKER) (test opms=469) 45 mmHg 35-45 PO2 ARTERIAL (BEAKER) (test uraw=752) 230 mmHg 80-90 O2 SATURATION ARTERIAL (BEAKER) (test kyqn=212) 99.3 % 96.0-97.0 HCO3 ARTERIAL (BEAKER) (test yasy=057) 17 mmol/L 21-29 BASE EXCESS ARTERIAL (BEAKER) (test mufh=973) -10.9 mmol/L -2.0-3.0 PATIENT TEMPERATURE (BEAKER) (test cpru=3735) 37.0 C FIO2 (BEAKER) (test clex=0790) 32.0 % CALCIUM, [id number] 22:57:00* Test Item Value Reference Range Comments CALCIUM IONIZED (BEAKER) (test pkqm=577) 1.07 mmol/L 1.12-1.27 PH, BLOOD (BEAKER) (test gcho=4149) 7.19 RAD, ABDOMEN/KUB, 1 VIEW [id number] 21:52:00Reason for exam:->confirm NGT placementFINAL REPORT Examination: Supine abdomen Clinical indication: Nasogastric tube placement IMPRESSION: The tip of the nasogastric tube projects over the left lung base and may be within the distal esophagus. Consider repositioning if clinically appropriate. Curvilinear opacities are noted in both lung bases, left greater than right. Although a component of atelectasis is suspected, an underlying pneumonia or mass lesion cannot be excluded. There is also subtle blunting of left costophrenic sulcus suggesting a small pleural effusion and/or pleural thickening. The bowel gas pattern is overall nonspecific and relatively gasless. Evaluation for free air below the diaphragm and air-fluid levels within the bowel is limited by supine patient positioning. CT could be performed for further characterization if clinically appropriate. Results and limitations discussed with Dr. Pate at the time of dictation. Signed: Jacque Suarez MDReport Verified Date/Time: 07/12/2017 21:52:07 Reading Location: [facility] [address] [place] [address] Reading Room SSIUM 2017-07-12 21:26:00* Test Item Value Reference Range Comments POTASSIUM (BEAKER) (test lacj=735) 6.2 meq/L 3.5-5.1 HEPATITIS C [id number] 20:37:00* Test Item Value Reference Range Comments HEPATITIS C ANTIBODY (BEAKER) (test iege=812) Nonreactive Nonreactive HIV-1 ANTIGEN WITH HIV-1/2 [id number] 20:37:00* Test Item Value Reference Range Comments HIV-1 ANTIGEN WITH HIV 1\\T\\2 ANTIBODY (2) (BEAKER) (test kzxm=1639) Nonreactive Nonreactive BASIC METABOLIC [id number] 20:13:00* Test Item Value Reference Range Comments SODIUM (BEAKER) (test akxr=459) 133 meq/L 136-145 POTASSIUM (BEAKER) (test ljrj=546) 6.3 meq/L 3.5-5.1 CHLORIDE (BEAKER) (test jheh=501) 113 meq/L 98-107 CO2 (BEAKER) (test gdpl=513) 14 meq/L 22-29 BLOOD UREA NITROGEN (BEAKER) (test aues=452) 16 mg/dL 7-21 CREATININE (BEAKER) (test imba=939) 0.92 mg/dL 0.57-1.25 GLUCOSE RANDOM (BEAKER) (test fjro=892) 192 mg/dL 70-105 CALCIUM (BEAKER) (test pqce=670) 7.7 mg/dL 8.4-10.2 EGFR (BEAKER) (test ujbb=9098) 61 mL/min/1.73 sq m ESTIMATED GFR IS NOT ACCURATE CREATININE CLEARANCE IN PREDICTING GLOMERULAR FILTRATION RATE. ESTIMATED GFR IS NOT APPLICABLE FOR DIALYSIS PATIENTS. [id number] 20:03:00* Test Item Value Reference Range Comments PHOSPHORUS (BEAKER) (test vzxt=276) 4.6 mg/dL 2.3-4.7 [id number] 20:03:00* Test Item Value Reference Range Comments MAGNESIUM (BEAKER) (test nlgx=077) 1.1 mg/dL 1.6-2.6 HEPATIC FUNCTION [id number] 20:03:00* Test Item Value Reference Range Comments TOTAL PROTEIN (BEAKER) (test ykpo=252) 4.7 gm/dL 6.0-8.3 ALBUMIN (BEAKER) (test vaxc=9885) 3.3 g/dL 3.5-5.0 BILIRUBIN TOTAL (BEAKER) (test wjvx=261) 2.3 mg/dL 0.2-1.2 BILIRUBIN DIRECT (BEAKER) (test sjcw=613) 1.2 mg/dL 0.1-0.5 ALKALINE PHOSPHATASE (BEAKER) (test xdep=464) 51 U/L 40-150 AST (SGOT) (BEAKER) (test exix=781) 71 U/L 5-34 ALT (SGPT) (BEAKER) (test rqgp=955) 46 U/L 6-55 [id number] 20:02:00* Test Item Value Reference Range Comments PROTIME (BEAKER) (test lsmf=201) 17.2 seconds 11.7-14.7 INR (BEAKER) (test dhgf=408) 1.4 <=5.9 PARTIAL THROMBOPLASTIN TIME (BEAKER) (test fiiv=201) 31.5 seconds 22.5-36.0 RECOMMENDED COUMADIN/WARFARIN INR THERAPY RANGESSTANDARD DOSE: 2.0 - 3.0 Inclu eduar: PROPHYLAXIS for venous thrombosis, systemic embolization; TREATMENT for ania ous thrombosis and/or pulmonary embolus.HIGH RISK: Target INR is 2.5-3.5 for pat ients with mechanical heart valves.CBC (HEMOGRAM ONLY)2017-07-12 19:47:00* Test Item Value Reference Range Comments WHITE BLOOD CELL COUNT (BEAKER) (test dqnu=723) 25.3 K/ L 3.5-10.5 RED BLOOD CELL COUNT (BEAKER) (test oiow=368) 3.37 M/ L 3.93-5.22 HEMOGLOBIN (BEAKER) (test uelk=094) 9.5 GM/DL 11.2-15.7 HEMATOCRIT (BEAKER) (test itdr=336) 29.5 % 34.1-44.9 MEAN CORPUSCULAR VOLUME (BEAKER) (test zzyg=883) 87.5 fL 79.4-94.8 MEAN CORPUSCULAR HEMOGLOBIN (BEAKER) (test gmyr=886) 28.2 pg 25.6-32.2 MEAN CORPUSCULAR HEMOGLOBIN CONC (BEAKER) (test ggfx=932) 32.2 GM/DL 32.2-35.5 RED CELL DISTRIBUTION WIDTH (BEAKER) (test dwds=837) 15.2 % 11.7-14.4 PLATELET COUNT (BEAKER) (test lnzk=784) 342 K/CU MM 150-450 MEAN PLATELET VOLUME (BEAKER) (test pwfh=534) 10.0 fL 9.4-12.3 NUCLEATED RED BLOOD CELLS (BEAKER) (test covr=876) 0 /100 WBC 0-0 CBC W/PLT COUNT & AUTO [id number] 15:15:00* Test Item Value Reference Range Comments WHITE BLOOD CELL COUNT (BEAKER) (test llgy=183) 14.7 K/ L 3.5-10.5 RED BLOOD CELL COUNT (BEAKER) (test djgp=946) 3.52 M/ L 3.93-5.22 HEMOGLOBIN (BEAKER) (test ldhm=337) 9.8 GM/DL 11.2-15.7 HEMATOCRIT (BEAKER) (test tvhj=506) 30.4 % 34.1-44.9 MEAN CORPUSCULAR VOLUME (BEAKER) (test ecxq=676) 86.4 fL 79.4-94.8 MEAN CORPUSCULAR HEMOGLOBIN (BEAKER) (test dats=841) 27.8 pg 25.6-32.2 MEAN CORPUSCULAR HEMOGLOBIN CONC (BEAKER) (test ngnk=050) 32.2 GM/DL 32.2-35.5 RED CELL DISTRIBUTION WIDTH (BEAKER) (test deje=230) 15.8 % 11.7-14.4 PLATELET COUNT (BEAKER) (test kios=579) 228 K/CU MM 150-450 MEAN PLATELET VOLUME (BEAKER) (test whuh=694) 9.9 fL 9.4-12.3 NUCLEATED RED BLOOD CELLS (BEAKER) (test quai=767) 0 /100 WBC 0-0 NEUTROPHILS RELATIVE PERCENT (BEAKER) (test vzyd=268) 92 % LYMPHOCYTES RELATIVE PERCENT (BEAKER) (test bodf=799) 3 % MONOCYTES RELATIVE PERCENT (BEAKER) (test pnha=586) 4 % EOSINOPHILS RELATIVE PERCENT (BEAKER) (test uauh=994) 0 % BASOPHILS RELATIVE PERCENT (BEAKER) (test eqnc=550) 0 % NEUTROPHILS ABSOLUTE COUNT (BEAKER) (test foqq=530) 13.61 K/ L 1.56-6.13 LYMPHOCYTES ABSOLUTE COUNT (BEAKER) (test gpre=220) 0.44 K/ L 1.18-3.74 MONOCYTES ABSOLUTE COUNT (BEAKER) (test hxcc=004) 0.52 K/ L 0.24-0.36 EOSINOPHILS ABSOLUTE COUNT (BEAKER) (test veso=014) 0.04 K/ L 0.04-0.36 BASOPHILS ABSOLUTE COUNT (BEAKER) (test rucj=340) 0.03 K/ L 0.01-0.08 IMMATURE GRANULOCYTES-RELATIVE PERCENT (BEAKER) (test vhph=1967) 1 % 0-1 PROTHROMBIN [id number] 15:14:00* Test Item Value Reference Range Comments PROTIME (BEAKER) (test fmzi=173) 16.6 seconds 11.7-14.7 INR (BEAKER) (test royu=691) 1.3 <=5.9 RECOMMENDED COUMADIN/WARFARIN INR THERAPY RANGESSTANDARD DOSE: 2.0 - 3.0 Inclu eduar: PROPHYLAXIS for venous thrombosis, systemic embolization; TREATMENT for ania ous thrombosis and/or pulmonary embolus.HIGH RISK: Target INR is 2.5-3.5 for pat ients with mechanical heart valves.CALCIUM, [id number] 15:06:00* Test Item Value Reference Range Comments CALCIUM IONIZED (BEAKER) (test vlln=770) 0.97 mmol/L 1.12-1.27 PH, BLOOD (BEAKER) (test doyo=0076) 7.34 POTASSIUM-STAT [id number] 15:05:00* Test Item Value Reference Range Comments POTASSIUM (BEAKER) (test uvbb=017) 5.3 meq/L 3.6-5.5 BLOOD GAS, [id number] 15:05:00* Test Item Value Reference Range Comments PH ARTERIAL (BEAKER) (test twqb=763) 7.34 7.35-7.45 PCO2 ARTERIAL (BEAKER) (test lfvy=963) 36 mmHg 35-45 PO2 ARTERIAL (BEAKER) (test zgzf=477) 209 mmHg 80-90 O2 SATURATION ARTERIAL (BEAKER) (test flbk=763) 99.4 % 96.0-97.0 HCO3 ARTERIAL (BEAKER) (test yimm=847) 19 mmol/L 21-29 BASE EXCESS ARTERIAL (BEAKER) (test mykq=297) -6.2 mmol/L -2.0-3.0 PATIENT TEMPERATURE (BEAKER) (test homt=6360) 37.0 C FIO2 (BEAKER) (test vlhd=4016) 21.0 % GLUCOSE-STAT [id number] 15:05:00* Test Item Value Reference Range Comments GLUCOSE RANDOM (BEAKER) (test dbll=266) 131 mg/dL 70-110 SODIUM NA-STAT [id number] 15:05:00* Test Item Value Reference Range Comments SODIUM (BEAKER) (test iusl=574) 129 meq/L 135-148 HGB/HCT (H&H) - STAT [id number] 15:05:00* Test Item Value Reference Range Comments HEMOGLOBIN (BEAKER) (test huil=991) 10.1 g/dL 12.0-15.0 HEMATOCRIT (BEAKER) (test nnkd=873) 30.0 % 36.0-45.0 BLOOD GAS, [id number] 13:57:00* Test Item Value Reference Range Comments PH ARTERIAL (BEAKER) (test ekrt=092) 7.31 7.35-7.45 PCO2 ARTERIAL (BEAKER) (test zapu=172) 38 mmHg 35-45 PO2 ARTERIAL (BEAKER) (test vzer=019) 210 mmHg 80-90 O2 SATURATION ARTERIAL (BEAKER) (test uflu=312) 99.3 % 96.0-97.0 HCO3 ARTERIAL (BEAKER) (test heeq=565) 19 mmol/L 21-29 BASE EXCESS ARTERIAL (BEAKER) (test mihy=250) -7.2 mmol/L -2.0-3.0 PATIENT TEMPERATURE (BEAKER) (test mjil=9436) 37.0 C FIO2 (BEAKER) (test pemr=9238) 100.0 % SODIUM NA-STAT [id number] 13:57:00* Test Item Value Reference Range Comments SODIUM (BEAKER) (test iqoi=743) 128 meq/L 135-148 HGB/HCT (H&H) - STAT [id number] 13:57:00* Test Item Value Reference Range Comments HEMOGLOBIN (BEAKER) (test mbzo=078) 8.8 g/dL 12.0-15.0 HEMATOCRIT (BEAKER) (test reli=254) 26.0 % 36.0-45.0 GLUCOSE-STAT [id number] 13:52:00* Test Item Value Reference Range Comments GLUCOSE RANDOM (BEAKER) (test xkxj=854) 98 mg/dL 70-110 POTASSIUM-STAT [id number] 13:52:00* Test Item Value Reference Range Comments POTASSIUM (BEAKER) (test rsyy=817) 5.2 meq/L 3.6-5.5 CALCIUM, [id number] 13:52:00* Test Item Value Reference Range Comments CALCIUM IONIZED (BEAKER) (test ioes=684) 1.18 mmol/L 1.12-1.27 PH, BLOOD (BEAKER) (test qizw=4102) 7.31 GLUCOSE-STAT [id number] 12:38:00* Test Item Value Reference Range Comments GLUCOSE RANDOM (BEAKER) (test fvzj=419) 102 mg/dL 70-110 POTASSIUM-STAT [id number] 12:38:00* Test Item Value Reference Range Comments POTASSIUM (BEAKER) (test vayc=939) 4.6 meq/L 3.6-5.5 BLOOD GAS, [id number] 12:38:00* Test Item Value Reference Range Comments PH ARTERIAL (BEAKER) (test yuwq=778) 7.36 7.35-7.45 PCO2 ARTERIAL (BEAKER) (test ggqc=401) 35 mmHg 35-45 PO2 ARTERIAL (BEAKER) (test pmln=429) 179 mmHg 80-90 O2 SATURATION ARTERIAL (BEAKER) (test akvf=295) 99.2 % 96.0-97.0 HCO3 ARTERIAL (BEAKER) (test nwiv=378) 20 mmol/L 21-29 BASE EXCESS ARTERIAL (BEAKER) (test npyf=223) -5.6 mmol/L -2.0-3.0 PATIENT TEMPERATURE (BEAKER) (test qcxz=8603) 36.0 C FIO2 (BEAKER) (test jyfv=8339) 50.0 % HGB/HCT (H&H) - STAT [id number] 12:38:00* Test Item Value Reference Range Comments HEMOGLOBIN (BEAKER) (test meti=878) 7.3 g/dL 12.0-15.0 HEMATOCRIT (BEAKER) (test kpbs=763) 21.0 % 36.0-45.0 SODIUM NA-STAT [id number] 12:38:00* Test Item Value Reference Range Comments SODIUM (BEAKER) (test dpio=280) 128 meq/L 135-148 CALCIUM, [id number] 12:38:00* Test Item Value Reference Range Comments CALCIUM IONIZED (BEAKER) (test aycz=695) 1.12 mmol/L 1.12-1.27 PH, BLOOD (BEAKER) (test mlyo=8723) 7.35 POTASSIUM-STAT [id number] 09:30:00* Test Item Value Reference Range Comments POTASSIUM (BEAKER) (test lwdz=565) 5.5 meq/L 3.6-5.5 [id number] 13:18:00* Test Item Value Reference Range Comments PROTIME (BEAKER) (test ndui=199) 13.4 seconds 11.7-14.7 INR (BEAKER) (test zqii=936) 1.0 <=5.9 PARTIAL THROMBOPLASTIN TIME (BEAKER) (test wghp=534) 32.8 seconds 22.5-36.0 RECOMMENDED COUMADIN/WARFARIN INR THERAPY RANGESSTANDARD DOSE: 2.0 - 3.0 Inclu eduar: PROPHYLAXIS for venous thrombosis, systemic embolization; TREATMENT for ania ous thrombosis and/or pulmonary embolus.HIGH RISK: Target INR is 2.5-3.5 for pat ients with mechanical heart valves.ALKALINE [id number] 13:17:00* Test Item Value Reference Range Comments ALKALINE PHOSPHATASE (BEAKER) (test ssdy=923) 98 U/L 40-150 BASIC METABOLIC [id number] 13:17:00* Test Item Value Reference Range Comments SODIUM (BEAKER) (test eias=587) 134 meq/L 136-145 POTASSIUM (BEAKER) (test tpuc=102) 5.2 meq/L 3.5-5.1 CHLORIDE (BEAKER) (test raeo=783) 106 meq/L 98-107 CO2 (BEAKER) (test tkfe=251) 21 meq/L 22-29 BLOOD UREA NITROGEN (BEAKER) (test cqpp=947) 17 mg/dL 7-21 CREATININE (BEAKER) (test uuwb=977) 1.01 mg/dL 0.57-1.25 GLUCOSE RANDOM (BEAKER) (test hnsu=213) 91 mg/dL 70-105 CALCIUM (BEAKER) (test bhkm=602) 9.3 mg/dL 8.4-10.2 EGFR (BEAKER) (test gqgh=9836) 55 mL/min/1.73 sq m ESTIMATED GFR IS NOT ACCURATE CREATININE CLEARANCE IN PREDICTING GLOMERULAR FILTRATION RATE. ESTIMATED GFR IS NOT APPLICABLE FOR DIALYSIS PATIENTS. AST (SGOT)2017-07-05 13:17:00* Test Item Value Reference Range Comments AST (SGOT) (BEAKER) (test ltqd=360) 18 U/L 5-34 PLATELET [id number] 12:54:00* Test Item Value Reference Range Comments PLATELET COUNT (BEAKER) (test wmef=267) 197 K/CU MM 150-450 CBC (HEMOGRAM ONLY)2017-07-05 12:54:00* Test Item Value Reference Range Comments WHITE BLOOD CELL COUNT (BEAKER) (test yzwb=799) 4.6 K/ L 3.5-10.5 RED BLOOD CELL COUNT (BEAKER) (test kscg=871) 3.84 M/ L 3.93-5.22 HEMOGLOBIN (BEAKER) (test ipry=644) 10.2 GM/DL 11.2-15.7 HEMATOCRIT (BEAKER) (test dhby=009) 32.5 % 34.1-44.9 MEAN CORPUSCULAR VOLUME (BEAKER) (test srrl=623) 84.6 fL 79.4-94.8 MEAN CORPUSCULAR HEMOGLOBIN (BEAKER) (test zndd=072) 26.6 pg 25.6-32.2 MEAN CORPUSCULAR HEMOGLOBIN CONC (BEAKER) (test zzgu=349) 31.4 GM/DL 32.2-35.5 RED CELL DISTRIBUTION WIDTH (BEAKER) (test nmfr=387) 16.8 % 11.7-14.4 PLATELET COUNT (BEAKER) (test rhdp=520) 197 K/CU MM 150-450 MEAN PLATELET VOLUME (BEAKER) (test uhev=188) 10.0 fL 9.4-12.3 NUCLEATED RED BLOOD CELLS (BEAKER) (test srfr=504) 0 /100 WBC 0-0 RAD, CHEST, 1 VIEW, NON [id number] 14:15:00Reason for exam:->COUGHShould this be performed at the bedside?->YesFINAL REPORT Chest, AP view. History: Cough. Comparison: None available. Discussion: The cardiomediastinal silhouette and pulmonary vasculature are within normal limits. The lungs are clear without evidence of consolidation or effusion. There are no acute osseous abnormalities. The soft tissues are unremarkable. A benign calcified granuloma is noted in the left lung. IMPRESSION: No acute cardiopulmonary abnormality. Signed: Luan Coulter MDReport Verified Date/Time: 04/14/2017 14:15:01 Reading Location: [address] Transitional Reading Room Electronically signed by: LUAN COULTER M.D. on 02:15 PM BLOOD [id number] 00:00:00* Test Item Value Reference Range Comments CULTURE (BEAKER) (test ndmy=8934) No growth in 5 days BLOOD [id number] 00:00:00* Test Item Value Reference Range Comments CULTURE (BEAKER) (test dgej=2295) No growth in 5 days CMV PCR, [id number] 20:54:00* Test Item Value Reference Range Comments CMV VIRAL LOAD - NEGATIVE (BEAKER) (test xtpb=8293) Negative or below the linear range of the assay (<375 copies/mL) Cytomegalovirus (CMV) infection can cause significant disease in immunosuppresse d patients. However, it is common for CMV to manifest as a limited infection whi ch is of no clinical significance in immunosuppressed patients or in healthy ind ividuals.Viral load measurements are helpful to identify clinical CMV infection and to guide the pre-emptive management of antiviral therapy. For treatment of CMV infection due to reactivation in transplant recipients, a threshold between 4,000 and 5,000 copies/mL is suggested. For treatment of primary CMV infection, a lower threshold can be used.CMV infection may also be monitored using weekly serial measurements. Serial measurements of CMV DNA viral load can be evaluated by identifying a 10-fold change, as well as assessing the CMV DNA viral load and the clinical context for each patient.The plasma CMV DNA viral load was detected using quantitative polymerase chain reaction and fluorescent monitoring of a s pecific hybridized probe. Genetic variation and other factors can affect the acc uracy of nucleic acid testing. Therefore, the results should be interpreted in l ight of clinical data. A negative result may not exclude the presence of CMV dis ease.This test was developed and its performance characteristics determined by [facility] Pathology Department, Section of Molecular Patholog y. It has not been cleared or approved by the U.S. Food and Drug Administration (FDA), since FDA approval is not required for clinical use of the test. Validati on was done as required by The Clinical Laboratory Improvement Amendments of 198 8.CBC W/PLT COUNT & AUTO [id number] 17:31:00* Test Item Value Reference Range Comments WHITE BLOOD CELL COUNT (BEAKER) (test ksrm=391) 3.9 K/ L 4.0-10.0 RED BLOOD CELL COUNT (BEAKER) (test xhip=479) 3.32 M/ L 4.00-5.00 HEMOGLOBIN (BEAKER) (test sxgi=410) 10.0 GM/DL 12.0-15.0 HEMATOCRIT (BEAKER) (test zsud=929) 30.0 % 36.0-45.0 MEAN CORPUSCULAR VOLUME (BEAKER) (test mvoz=692) 90.3 fL 82.0-99.0 MEAN CORPUSCULAR HEMOGLOBIN (BEAKER) (test gvdd=303) 30.0 pg 27.0-33.0 MEAN CORPUSCULAR HEMOGLOBIN CONC (BEAKER) (test hcep=536) 33.2 GM/DL 32.0-36.0 RED CELL DISTRIBUTION WIDTH (BEAKER) (test jtlo=690) 14.2 % 10.3-14.2 PLATELET COUNT (BEAKER) (test rpbo=063) 107 K/CU MM 150-430 MEAN PLATELET VOLUME (BEAKER) (test qfll=939) 8.2 fL 6.5-10.5 NUCLEATED RED BLOOD CELLS (BEAKER) (test zrkz=021) 0 /100 WBC 0-0 (MANUAL DIFFERENTIAL)2016-12-18 17:31:00* Test Item Value Reference Range Comments NEUTROPHILS - REL (DIFF) (BEAKER) (test buvk=6805) 72 % LYMPHOCYTES - REL (DIFF) (BEAKER) (test juta=3615) 11 % MONOCYTES - REL (DIFF) (BEAKER) (test jkah=4519) 10 % BANDS - REL (DIFF) (BEAKER) (test hqqa=8962) 7 % 0-10 NEUTROPHILS - ABS (DIFF) (BEAKER) (test xlgv=5342) 2.81 K/ L 1.80-8.00 LYMPHOCYTES - ABS (DIFF) (BEAKER) (test ckxk=4765) 0.43 K/ L 1.48-4.50 MONOCYTES - ABS (DIFF) (BEAKER) (test uilr=9885) 0.39 K/ L 0.00-1.30 BANDS-ABS (DIFF) (BEAKER) (test bcoj=0450) 0.3 K/ L 0.0-0.8 TOTAL COUNTED (BEAKER) (test cuyi=7221) 100 BANDS + SEGMENTED NEUTROPHILS (BEAKER) (test khfi=0802) 3.08 WBC MORPHOLOGY (BEAKER) (test mroo=819) Normal PLT MORPHOLOGY (BEAKER) (test wtzl=826) Normal MICROCYTES (BEAKER) (test owqj=385) 1+ few BASIC METABOLIC [id number] 15:26:00* Test Item Value Reference Range Comments SODIUM (BEAKER) (test lkir=013) 136 meq/L 136-145 POTASSIUM (BEAKER) (test oszs=692) 4.0 meq/L 3.5-5.1 CHLORIDE (BEAKER) (test atlb=834) 106 meq/L 98-107 CO2 (BEAKER) (test yofw=917) 22 meq/L 22-29 BLOOD UREA NITROGEN (BEAKER) (test pmam=389) 16 mg/dL 7-21 CREATININE (BEAKER) (test odzp=120) 0.91 mg/dL 0.57-1.25 GLUCOSE RANDOM (BEAKER) (test fbsr=913) 78 mg/dL 70-105 CALCIUM (BEAKER) (test yqpx=615) 7.3 mg/dL 8.4-10.2 EGFR (BEAKER) (test zhho=9223) 61 mL/min/1.73 sq m ESTIMATED GFR IS NOT ACCURATE CREATININE CLEARANCE IN PREDICTING GLOMERULAR FILTRATION RATE. ESTIMATED GFR IS NOT APPLICABLE FOR DIALYSIS PATIENTS. TACROLIMUS [id number] 09:26:00* Test Item Value Reference Range Comments TACROLIMUS BLOOD (BEAKER) (test oohh=697) 5.9 ng/mL 10.0-20.0 COMPREHENSIVE METABOLIC [id number] 06:31:00* Test Item Value Reference Range Comments TOTAL PROTEIN (BEAKER) (test wecu=773) 5.9 gm/dL 6.0-8.3 ALBUMIN (BEAKER) (test rmbi=9500) 3.4 g/dL 3.5-5.0 ALKALINE PHOSPHATASE (BEAKER) (test vapg=846) 111 U/L 40-150 BILIRUBIN TOTAL (BEAKER) (test ejek=499) 0.3 mg/dL 0.2-1.2 SODIUM (BEAKER) (test bnzl=021) 132 meq/L 136-145 POTASSIUM (BEAKER) (test oslo=031) 4.1 meq/L 3.5-5.1 CHLORIDE (BEAKER) (test nevu=171) 102 meq/L 98-107 CO2 (BEAKER) (test arue=117) 21 meq/L 22-29 BLOOD UREA NITROGEN (BEAKER) (test hsyc=347) 18 mg/dL 7-21 CREATININE (BEAKER) (test bkkz=185) 1.02 mg/dL 0.57-1.25 GLUCOSE RANDOM (BEAKER) (test peef=517) 114 mg/dL 70-105 CALCIUM (BEAKER) (test npel=177) 8.1 mg/dL 8.4-10.2 AST (SGOT) (BEAKER) (test dcjk=879) 57 U/L 5-34 ALT (SGPT) (BEAKER) (test itmy=834) 75 U/L 6-55 EGFR (BEAKER) (test ebav=0491) 54 mL/min/1.73 sq m ESTIMATED GFR IS NOT ACCURATE CREATININE CLEARANCE IN PREDICTING GLOMERULAR FILTRATION RATE. ESTIMATED GFR IS NOT APPLICABLE FOR DIALYSIS PATIENTS. BILIRUBIN, [id number] 06:31:00* Test Item Value Reference Range Comments BILIRUBIN DIRECT (BEAKER) (test ghis=987) 0.2 mg/dL 0.1-0.5 PROTHROMBIN [id number] 06:05:00* Test Item Value Reference Range Comments PROTIME (BEAKER) (test qgcf=467) 13.6 seconds 11.7-14.7 INR (BEAKER) (test nrfs=359) 1.1 <=5.9 RECOMMENDED COUMADIN/WARFARIN INR THERAPY RANGESSTANDARD DOSE: 2.0 - 3.0 Inclu eduar: PROPHYLAXIS for venous thrombosis, systemic embolization; TREATMENT for ania ous thrombosis and/or pulmonary embolus.HIGH RISK: Target INR is 2.5-3.5 for pat ients with mechanical heart valves.HEPATITIS PANEL, [id number] 19:55:00* Test Item Value Reference Range Comments HEPATITIS A IGM ANTIBODY (BEAKER) (test wvge=120) Nonreactive Nonreactive HEPATITIS B CORE IGM ANTIBODY (BEAKER) (test jswf=780) Nonreactive Nonreactive HEPATITIS C ANTIBODY (BEAKER) (test jkpq=833) Nonreactive Nonreactive HEPATITIS B SURFACE ANTIGEN (2) (BEAKER) (test ngxt=6669) Nonreactive Nonreactive B-TYPE NATRIURETIC FACTOR (BNP)2016-12-17 17:30:00* Test Item Value Reference Range Comments B-TYPE NATRIURETIC PEPTIDE (BEAKER) (test nrjr=752) 443 pg/mL 0-100 [id number] 17:17:00* Test Item Value Reference Range Comments POTASSIUM (BEAKER) (test afru=188) 5.2 meq/L 3.5-5.1 TACROLIMUS [id number] 10:22:00* Test Item Value Reference Range Comments TACROLIMUS BLOOD (BEAKER) (test xsro=537) 7.1 ng/mL 10.0-20.0 PROTHROMBIN [id number] 09:56:00* Test Item Value Reference Range Comments PROTIME (BEAKER) (test vtpi=211) 13.6 seconds 11.7-14.7 INR (BEAKER) (test zpec=517) 1.1 <=5.9 RECOMMENDED COUMADIN/WARFARIN INR THERAPY RANGESSTANDARD DOSE: 2.0 - 3.0 Inclu eduar: PROPHYLAXIS for venous thrombosis, systemic embolization; TREATMENT for ania ous thrombosis and/or pulmonary embolus.HIGH RISK: Target INR is 2.5-3.5 for pat ients with mechanical heart valves.COMPREHENSIVE METABOLIC [id number] 08:35:00* Test Item Value Reference Range Comments TOTAL PROTEIN (BEAKER) (test zbwf=118) 6.6 gm/dL 6.0-8.3 ALBUMIN (BEAKER) (test ddcz=9188) 3.7 g/dL 3.5-5.0 ALKALINE PHOSPHATASE (BEAKER) (test yxxe=371) 138 U/L 40-150 BILIRUBIN TOTAL (BEAKER) (test rbly=784) 0.6 mg/dL 0.2-1.2 SODIUM (BEAKER) (test alcm=786) 127 meq/L 136-145 POTASSIUM (BEAKER) (test xnqz=826) 6.4 meq/L 3.5-5.1 CHLORIDE (BEAKER) (test koyt=322) 102 meq/L 98-107 CO2 (BEAKER) (test oswd=350) 18 meq/L 22-29 BLOOD UREA NITROGEN (BEAKER) (test jgfk=056) 18 mg/dL 7-21 CREATININE (BEAKER) (test frah=762) 1.12 mg/dL 0.57-1.25 GLUCOSE RANDOM (BEAKER) (test vknt=787) 130 mg/dL 70-105 CALCIUM (BEAKER) (test fcmc=534) 8.9 mg/dL 8.4-10.2 AST (SGOT) (BEAKER) (test rlgp=199) 139 U/L 5-34 ALT (SGPT) (BEAKER) (test etzk=323) 124 U/L 6-55 EGFR (BEAKER) (test pesb=6062) 48 mL/min/1.73 sq m ESTIMATED GFR IS NOT ACCURATE CREATININE CLEARANCE IN PREDICTING GLOMERULAR FILTRATION RATE. ESTIMATED GFR IS NOT APPLICABLE FOR DIALYSIS PATIENTS. BASIC METABOLIC [id number] 08:34:00* Test Item Value Reference Range Comments SODIUM (BEAKER) (test hhyx=845) 127 meq/L 136-145 POTASSIUM (BEAKER) (test zyrc=606) 6.4 meq/L 3.5-5.1 CHLORIDE (BEAKER) (test svmq=361) 102 meq/L 98-107 CO2 (BEAKER) (test kavg=349) 18 meq/L 22-29 BLOOD UREA NITROGEN (BEAKER) (test ocon=200) 18 mg/dL 7-21 CREATININE (BEAKER) (test dikj=013) 1.12 mg/dL 0.57-1.25 GLUCOSE RANDOM (BEAKER) (test domb=440) 130 mg/dL 70-105 CALCIUM (BEAKER) (test giew=544) 8.9 mg/dL 8.4-10.2 EGFR (BEAKER) (test ejek=0632) 48 mL/min/1.73 sq m ESTIMATED GFR IS NOT ACCURATE CREATININE CLEARANCE IN PREDICTING GLOMERULAR FILTRATION RATE. ESTIMATED GFR IS NOT APPLICABLE FOR DIALYSIS PATIENTS. URINE [id number] 08:02:00* Test Item Value Reference Range Comments CULTURE (BEAKER) (test ebuz=8783) >100,000 col/mL skin anatoly CBC W/PLT COUNT & AUTO [id number] 07:18:00* Test Item Value Reference Range Comments WHITE BLOOD CELL COUNT (BEAKER) (test pebo=162) 3.6 K/ L 4.0-10.0 RED BLOOD CELL COUNT (BEAKER) (test rrvg=871) 3.75 M/ L 4.00-5.00 HEMOGLOBIN (BEAKER) (test zlaz=272) 11.4 GM/DL 12.0-15.0 HEMATOCRIT (BEAKER) (test tcxm=221) 33.8 % 36.0-45.0 MEAN CORPUSCULAR VOLUME (BEAKER) (test udyw=448) 90.1 fL 82.0-99.0 MEAN CORPUSCULAR HEMOGLOBIN (BEAKER) (test soan=317) 30.4 pg 27.0-33.0 MEAN CORPUSCULAR HEMOGLOBIN CONC (BEAKER) (test cowe=303) 33.7 GM/DL 32.0-36.0 RED CELL DISTRIBUTION WIDTH (BEAKER) (test aioi=176) 12.4 % 10.3-14.2 PLATELET COUNT (BEAKER) (test oxsm=162) 127 K/CU MM 150-430 MEAN PLATELET VOLUME (BEAKER) (test tsmw=265) 7.7 fL 6.5-10.5 NUCLEATED RED BLOOD CELLS (BEAKER) (test qdve=651) 0 /100 WBC 0-0 NEUTROPHILS RELATIVE PERCENT (BEAKER) (test fykd=867) 88 % LYMPHOCYTES RELATIVE PERCENT (BEAKER) (test qsuc=971) 6 % MONOCYTES RELATIVE PERCENT (BEAKER) (test mctx=218) 4 % EOSINOPHILS RELATIVE PERCENT (BEAKER) (test ellj=437) 1 % BASOPHILS RELATIVE PERCENT (BEAKER) (test dsyd=413) 1 % NEUTROPHILS ABSOLUTE COUNT (BEAKER) (test wdwr=892) 3.17 K/ L 1.80-8.00 LYMPHOCYTES ABSOLUTE COUNT (BEAKER) (test ixqq=220) 0.23 K/ L 1.48-4.50 MONOCYTES ABSOLUTE COUNT (BEAKER) (test mljp=164) 0.15 K/ L 0.00-1.30 EOSINOPHILS ABSOLUTE COUNT (BEAKER) (test mvlu=929) 0.02 K/ L 0.00-0.50 BASOPHILS ABSOLUTE COUNT (BEAKER) (test wrla=105) 0.04 K/ L 0.00-0.20 0.00TROPONIN [id number] 15:42:00* Test Item Value Reference Range Comments TROPONIN I (BEAKER) (test hpbd=198) 0.02 ng/mL 0.00-0.03 Effective 05/18/2014: Reference Range ChangeNew: 0.00-0.03 Previous 0.00-0.15T roponin I (TnI) levels must be interpreted in the context of the presenting symp toms and the clinical findings. Elevated TnI levels indicate myocardial damage, but are not specific for ischemic heart disease. Elevated TnI levels are seen in patients with other cardiac conditions (including myocarditis and congestive he art failure), and slight TnI elevations occur in patients with other conditions, including sepsis, renal failure, acidosis, acute neurological disease, and pers istent tachyarrhythmia.BASIC METABOLIC [id number] 07:00:00* Test Item Value Reference Range Comments SODIUM (BEAKER) (test gldm=435) 135 meq/L 136-145 POTASSIUM (BEAKER) (test vumx=131) 5.3 meq/L 3.5-5.1 CHLORIDE (BEAKER) (test tlja=748) 109 meq/L 98-107 CO2 (BEAKER) (test phua=779) 18 meq/L 22-29 BLOOD UREA NITROGEN (BEAKER) (test hyft=385) 20 mg/dL 7-21 CREATININE (BEAKER) (test ohim=627) 1.23 mg/dL 0.57-1.25 GLUCOSE RANDOM (BEAKER) (test pvpl=706) 89 mg/dL 70-105 CALCIUM (BEAKER) (test zliv=865) 8.7 mg/dL 8.4-10.2 EGFR (BEAKER) (test gzac=1953) 43 mL/min/1.73 sq m ESTIMATED GFR IS NOT ACCURATE CREATININE CLEARANCE IN PREDICTING GLOMERULAR FILTRATION RATE. ESTIMATED GFR IS NOT APPLICABLE FOR DIALYSIS PATIENTS. CBC W/PLT COUNT & AUTO [id number] 06:52:00* Test Item Value Reference Range Comments WHITE BLOOD CELL COUNT (BEAKER) (test unxf=571) 3.1 K/ L 4.0-10.0 RED BLOOD CELL COUNT (BEAKER) (test tbgk=416) 3.69 M/ L 4.00-5.00 HEMOGLOBIN (BEAKER) (test zuus=989) 10.8 GM/DL 12.0-15.0 HEMATOCRIT (BEAKER) (test dcsd=257) 33.6 % 36.0-45.0 MEAN CORPUSCULAR VOLUME (BEAKER) (test bnzp=030) 90.8 fL 82.0-99.0 MEAN CORPUSCULAR HEMOGLOBIN (BEAKER) (test xumy=904) 29.3 pg 27.0-33.0 MEAN CORPUSCULAR HEMOGLOBIN CONC (BEAKER) (test cnqg=629) 32.2 GM/DL 32.0-36.0 RED CELL DISTRIBUTION WIDTH (BEAKER) (test zkkr=990) 12.9 % 10.3-14.2 PLATELET COUNT (BEAKER) (test pmjn=597) 143 K/CU MM 150-430 MEAN PLATELET VOLUME (BEAKER) (test pstj=943) 7.8 fL 6.5-10.5 NUCLEATED RED BLOOD CELLS (BEAKER) (test lyii=560) 0 /100 WBC 0-0 NEUTROPHILS RELATIVE PERCENT (BEAKER) (test scxt=174) 65 % LYMPHOCYTES RELATIVE PERCENT (BEAKER) (test qfyo=934) 15 % MONOCYTES RELATIVE PERCENT (BEAKER) (test hisc=076) 14 % EOSINOPHILS RELATIVE PERCENT (BEAKER) (test mvyf=884) 7 % BASOPHILS RELATIVE PERCENT (BEAKER) (test jyfy=770) 0 % NEUTROPHILS ABSOLUTE COUNT (BEAKER) (test jwmj=936) 2.04 K/ L 1.80-8.00 LYMPHOCYTES ABSOLUTE COUNT (BEAKER) (test rnbs=945) 0.46 K/ L 1.48-4.50 MONOCYTES ABSOLUTE COUNT (BEAKER) (test vypg=403) 0.44 K/ L 0.00-1.30 EOSINOPHILS ABSOLUTE COUNT (BEAKER) (test rdfo=942) 0.21 K/ L 0.00-0.50 BASOPHILS ABSOLUTE COUNT (BEAKER) (test eayh=207) 0.00 K/ L 0.00-0.20 0.00PROTHROMBIN [id number] 06:49:00* Test Item Value Reference Range Comments PROTIME (BEAKER) (test ypdq=396) 13.6 seconds 11.7-14.7 INR (BEAKER) (test lxek=836) 1.1 <=5.9 RECOMMENDED COUMADIN/WARFARIN INR THERAPY RANGESSTANDARD DOSE: 2.0 - 3.0 Inclu eduar: PROPHYLAXIS for venous thrombosis, systemic embolization; TREATMENT for ania ous thrombosis and/or pulmonary embolus.HIGH RISK: Target INR is 2.5-3.5 for pat ients with mechanical heart valves.POCT-LACTIC ACID, [id number] 00:15:00* Test Item Value Reference Range Comments POC-LACTIC ACID, VENOUS (BEAKER) (test xpff=1977) 1.4 mmol/L 0.9-1.7 TESTED AT [facility] [address] [address] POCT-LACTIC ACID, [id number] 20:50:00* Test Item Value Reference Range Comments POC-LACTIC ACID, VENOUS (BEAKER) (test rfid=3481) 2.3 mmol/L 0.9-1.7 TESTED AT [facility] [address] [address] URINALYSIS W/ [id number] 20:20:00* Test Item Value Reference Range Comments COLOR (BEAKER) (test szmu=213) Yellow CLARITY (BEAKER) (test pebb=586) Hazy SPECIFIC GRAVITY UA (BEAKER) (test qpxn=100) 1.019 1.001-1.035 PH UA (BEAKER) (test btpg=020) 5.5 5.0-8.0 PROTEIN UA (BEAKER) (test ubzi=336) 20 mg/dL Negative GLUCOSE UA (BEAKER) (test dhgi=778) Negative Negative KETONES UA (BEAKER) (test feji=025) Negative Negative BILIRUBIN UA (BEAKER) (test qrsg=957) Negative Negative BLOOD UA (BEAKER) (test mmzj=428) Negative Negative NITRITE UA (BEAKER) (test wqpx=174) Negative Negative LEUKOCYTE ESTERASE UA (BEAKER) (test fwrl=443) Negative Negative UROBILINOGEN UA (BEAKER) (test qjsd=385) 2.0 mg/dL 0.2-1.0 RBC UA (BEAKER) (test tmse=397) 1 /HPF WBC UA (BEAKER) (test kxnt=973) 1 /HPF BACTERIA (BEAKER) (test rzhl=326) Occasional MUCUS (BEAKER) (test yaig=7128) Occasional SQUAMOUS EPITHELIAL (BEAKER) (test ukfd=185) 4 /HPF HYALINE CASTS (BEAKER) (test qtcu=424) 9 /LPF SOURCE(BEAKER) (test qkuk=9148) Urine, Clean Catch B-TYPE NATRIURETIC FACTOR (BNP)2016-12-15 18:49:00* Test Item Value Reference Range Comments B-TYPE NATRIURETIC PEPTIDE (BEAKER) (test ceyj=686) 36 pg/mL 0-100 CREATINE KINASE (CK), TOTAL AND [id number] 18:49:00* Test Item Value Reference Range Comments CREATINE KINASE TOTAL (BEAKER) (test cepj=601) 98 U/L 29-200 CREATINE KINASE-MB (BEAKER) (test wsyl=603) 1.4 ng/mL 0.0-6.6 CREATINE KINASE-MB INDEX (BEAKER) (test pgxb=467) 1.4 % Effective 05/18/2014: CK-MB Reference Range ChangeNew: 0.0-6.6 Previous: 0.0- 4.9CK-MB Reference Range:<6.7 Normal6.7-10.0 Borderline>10.0 Abnormal [id number] 18:48:00* Test Item Value Reference Range Comments MAGNESIUM (BEAKER) (test jsyi=445) 2.0 mg/dL 1.6-2.6 BASIC METABOLIC [id number] 18:48:00* Test Item Value Reference Range Comments SODIUM (BEAKER) (test pdls=281) 133 meq/L 136-145 POTASSIUM (BEAKER) (test phpj=279) 5.0 meq/L 3.5-5.1 CHLORIDE (BEAKER) (test azdq=666) 107 meq/L 98-107 CO2 (BEAKER) (test avnc=065) 15 meq/L 22-29 BLOOD UREA NITROGEN (BEAKER) (test kfmu=010) 23 mg/dL 7-21 CREATININE (BEAKER) (test snyz=873) 1.61 mg/dL 0.57-1.25 GLUCOSE RANDOM (BEAKER) (test hurc=992) 168 mg/dL 70-105 CALCIUM (BEAKER) (test cyzj=384) 9.5 mg/dL 8.4-10.2 EGFR (BEAKER) (test rrwy=8696) 32 mL/min/1.73 sq m ESTIMATED GFR IS NOT ACCURATE CREATININE CLEARANCE IN PREDICTING GLOMERULAR FILTRATION RATE. ESTIMATED GFR IS NOT APPLICABLE FOR DIALYSIS PATIENTS. HEPATIC FUNCTION [id number] 18:48:00* Test Item Value Reference Range Comments TOTAL PROTEIN (BEAKER) (test srxc=745) 7.4 gm/dL 6.0-8.3 ALBUMIN (BEAKER) (test eweh=5678) 4.1 g/dL 3.5-5.0 BILIRUBIN TOTAL (BEAKER) (test uyje=899) 0.4 mg/dL 0.2-1.2 BILIRUBIN DIRECT (BEAKER) (test olqe=836) 0.1 mg/dL 0.1-0.5 ALKALINE PHOSPHATASE (BEAKER) (test rfgb=119) 120 U/L 40-150 AST (SGOT) (BEAKER) (test ptbh=475) 23 U/L 5-34 ALT (SGPT) (BEAKER) (test gylr=564) 12 U/L 6-55 [id number] 18:27:00* Test Item Value Reference Range Comments D-DIMER QUANTITATIVE (BEAKER) (test hjzu=095) 0.91 MG/L FEU <0.50 Intended Use: The D-Dimer Assay can be used to aid in the diagnosis of Deep Vein Thrombosis (DVT) and Pulmonary Embolism Disease (PED).In patients with low pre- test probability, various studies concerning STA Liatest D-dimer test have repor jose luis that with a cutoff value of 0.50 MG/L FEU, the Negative Predictive Value (MORTGAGE ADVISOR V) regarding the exclusion of thrombosis is within 95-100% range.PT/APTT 2016-12-15 18:25:00* Test Item Value Reference Range Comments PROTIME (BEAKER) (test jzpn=010) 13.8 seconds 11.7-14.7 INR (BEAKER) (test scif=768) 1.1 <=5.9 PARTIAL THROMBOPLASTIN TIME (BEAKER) (test sxca=478) 26.8 seconds 22.5-36.0 RECOMMENDED COUMADIN/WARFARIN INR THERAPY RANGESSTANDARD DOSE: 2.0 - 3.0 Inclu eduar: PROPHYLAXIS for venous thrombosis, systemic embolization; TREATMENT for ania ous thrombosis and/or pulmonary embolus.HIGH RISK: Target INR is 2.5-3.5 for pat ients with mechanical heart valves.CBC W/PLT COUNT & AUTO [id number] 18:21:00* Test Item Value Reference Range Comments WHITE BLOOD CELL COUNT (BEAKER) (test nidv=981) 6.2 K/ L 4.0-10.0 RED BLOOD CELL COUNT (BEAKER) (test jwgy=662) 4.39 M/ L 4.00-5.00 HEMOGLOBIN (BEAKER) (test rcpv=268) 12.6 GM/DL 12.0-15.0 HEMATOCRIT (BEAKER) (test flvv=739) 39.8 % 36.0-45.0 MEAN CORPUSCULAR VOLUME (BEAKER) (test kupz=311) 90.6 fL 82.0-99.0 MEAN CORPUSCULAR HEMOGLOBIN (BEAKER) (test traz=811) 28.7 pg 27.0-33.0 MEAN CORPUSCULAR HEMOGLOBIN CONC (BEAKER) (test oxrp=962) 31.7 GM/DL 32.0-36.0 RED CELL DISTRIBUTION WIDTH (BEAKER) (test zdyk=741) 14.8 % 10.3-14.2 PLATELET COUNT (BEAKER) (test qcyq=930) 168 K/CU MM 150-430 MEAN PLATELET VOLUME (BEAKER) (test kzva=710) 7.6 fL 6.5-10.5 NUCLEATED RED BLOOD CELLS (BEAKER) (test rytx=891) 0 /100 WBC 0-0 NEUTROPHILS RELATIVE PERCENT (BEAKER) (test zcxx=712) 75 % LYMPHOCYTES RELATIVE PERCENT (BEAKER) (test vucb=008) 10 % MONOCYTES RELATIVE PERCENT (BEAKER) (test yeux=165) 11 % EOSINOPHILS RELATIVE PERCENT (BEAKER) (test eowa=338) 3 % BASOPHILS RELATIVE PERCENT (BEAKER) (test ugqt=465) 0 % NEUTROPHILS ABSOLUTE COUNT (BEAKER) (test piad=695) 4.63 K/ L 1.80-8.00 LYMPHOCYTES ABSOLUTE COUNT (BEAKER) (test letw=896) 0.63 K/ L 1.48-4.50 MONOCYTES ABSOLUTE COUNT (BEAKER) (test mdxj=354) 0.70 K/ L 0.00-1.30 EOSINOPHILS ABSOLUTE COUNT (BEAKER) (test sblw=752) 0.19 K/ L 0.00-0.50 BASOPHILS ABSOLUTE COUNT (BEAKER) (test rtys=712) 0.01 K/ L 0.00-0.20 0.00POCT-LACTIC ACID, [id number] 18:12:00* Test Item Value Reference Range Comments POC-LACTIC ACID, VENOUS (BEAKER) (test oqcy=6698) 4.7 mmol/L 0.9-1.7 TESTED AT [facility] [address] [address] BLOOD [id number] 15:26:00* Test Item Value Reference Range Comments CULTURE (BEAKER) (test nnmy=2283) No growth in 5 days BLOOD [id number] 15:24:00* Test Item Value Reference Range Comments CULTURE (BEAKER) (test juko=6484) No growth in 5 days CBC W/PLT COUNT & AUTO [id number] 10:47:00* Test Item Value Reference Range Comments WHITE BLOOD CELL COUNT (BEAKER) (test ewvs=889) 2.6 K/ L 4.0-10.0 RED BLOOD CELL COUNT (BEAKER) (test vjfc=890) 3.71 M/ L 4.00-5.00 HEMOGLOBIN (BEAKER) (test setw=676) 11.3 GM/DL 12.0-15.0 HEMATOCRIT (BEAKER) (test smpq=169) 33.3 % 36.0-45.0 MEAN CORPUSCULAR VOLUME (BEAKER) (test uaam=966) 89.7 fL 82.0-99.0 MEAN CORPUSCULAR HEMOGLOBIN (BEAKER) (test eikl=157) 30.3 pg 27.0-33.0 MEAN CORPUSCULAR HEMOGLOBIN CONC (BEAKER) (test juxp=313) 33.8 GM/DL 32.0-36.0 RED CELL DISTRIBUTION WIDTH (BEAKER) (test xtzh=853) 12.8 % 10.3-14.2 PLATELET COUNT (BEAKER) (test fzvf=668) 137 K/CU MM 150-430 MEAN PLATELET VOLUME (BEAKER) (test qfcu=778) 7.3 fL 6.5-10.5 NUCLEATED RED BLOOD CELLS (BEAKER) (test glbh=223) 0 /100 WBC 0-0 NEUTROPHILS RELATIVE PERCENT (BEAKER) (test eaug=741) 59 % LYMPHOCYTES RELATIVE PERCENT (BEAKER) (test oirb=523) 18 % MONOCYTES RELATIVE PERCENT (BEAKER) (test rggc=636) 14 % EOSINOPHILS RELATIVE PERCENT (BEAKER) (test brdj=422) 9 % BASOPHILS RELATIVE PERCENT (BEAKER) (test povj=497) 0 % NEUTROPHILS ABSOLUTE COUNT (BEAKER) (test xiov=513) 1.55 K/ L 1.80-8.00 LYMPHOCYTES ABSOLUTE COUNT (BEAKER) (test fowv=763) 0.46 K/ L 1.48-4.50 MONOCYTES ABSOLUTE COUNT (BEAKER) (test uede=408) 0.37 K/ L 0.00-1.30 EOSINOPHILS ABSOLUTE COUNT (BEAKER) (test kxdw=329) 0.23 K/ L 0.00-0.50 BASOPHILS ABSOLUTE COUNT (BEAKER) (test ikli=113) 0.01 K/ L 0.00-0.20 0.00(MANUAL DIFFERENTIAL)2016-11-15 10:47:00* Test Item Value Reference Range Comments TOTAL COUNTED (BEAKER) (test jbai=5831) WBC MORPHOLOGY (BEAKER) (test bqsw=531) Normal PLT MORPHOLOGY (BEAKER) (test wxvc=235) Normal RBC MORPHOLOGY (BEAKER) (test kfnm=355) Normal BASIC METABOLIC [id number] 07:01:00* Test Item Value Reference Range Comments SODIUM (BEAKER) (test hpwy=868) 132 meq/L 136-145 POTASSIUM (BEAKER) (test ofcz=997) 5.4 meq/L 3.5-5.1 Specimen slightly hemolyzed CHLORIDE (BEAKER) (test tznw=364) 104 meq/L 98-107 CO2 (BEAKER) (test nyvm=396) 21 meq/L 22-29 BLOOD UREA NITROGEN (BEAKER) (test unia=871) 15 mg/dL 7-21 CREATININE (BEAKER) (test sxai=621) 1.29 mg/dL 0.57-1.25 Specimen slightly hemolyzed GLUCOSE RANDOM (BEAKER) (test fckz=246) 88 mg/dL 70-105 CALCIUM (BEAKER) (test ojun=662) 8.5 mg/dL 8.4-10.2 EGFR (BEAKER) (test ygny=5266) 41 mL/min/1.73 sq m ESTIMATED GFR IS NOT ACCURATE CREATININE CLEARANCE IN PREDICTING GLOMERULAR FILTRATION RATE. ESTIMATED GFR IS NOT APPLICABLE FOR DIALYSIS PATIENTS. TACROLIMUS [id number] 10:50:00* Test Item Value Reference Range Comments TACROLIMUS BLOOD (BEAKER) (test sswa=543) 9.3 ng/mL 10.0-20.0 HEMOGLOBIN [id number] 10:45:00* Test Item Value Reference Range Comments HEMOGLOBIN A1C (BEAKER) (test miqi=568) 5.5 % 4.3-6.1 CBC W/PLT COUNT & AUTO [id number] 07:05:00* Test Item Value Reference Range Comments WHITE BLOOD CELL COUNT (BEAKER) (test uedi=994) 3.4 K/ L 4.0-10.0 RED BLOOD CELL COUNT (BEAKER) (test vmvf=643) 3.78 M/ L 4.00-5.00 HEMOGLOBIN (BEAKER) (test fqfd=225) 11.4 GM/DL 12.0-15.0 HEMATOCRIT (BEAKER) (test zmoi=730) 34.5 % 36.0-45.0 MEAN CORPUSCULAR VOLUME (BEAKER) (test nzij=384) 91.3 fL 82.0-99.0 MEAN CORPUSCULAR HEMOGLOBIN (BEAKER) (test grdo=164) 30.2 pg 27.0-33.0 MEAN CORPUSCULAR HEMOGLOBIN CONC (BEAKER) (test yylt=340) 33.1 GM/DL 32.0-36.0 RED CELL DISTRIBUTION WIDTH (BEAKER) (test lomd=985) 12.0 % 10.3-14.2 PLATELET COUNT (BEAKER) (test awiv=904) 140 K/CU MM 150-430 MEAN PLATELET VOLUME (BEAKER) (test usxg=534) 7.1 fL 6.5-10.5 NUCLEATED RED BLOOD CELLS (BEAKER) (test smuw=933) 0 /100 WBC 0-0 NEUTROPHILS RELATIVE PERCENT (BEAKER) (test nfos=184) 63 % LYMPHOCYTES RELATIVE PERCENT (BEAKER) (test xowf=153) 14 % MONOCYTES RELATIVE PERCENT (BEAKER) (test awzn=853) 16 % EOSINOPHILS RELATIVE PERCENT (BEAKER) (test rlir=381) 6 % BASOPHILS RELATIVE PERCENT (BEAKER) (test ysck=709) 0 % NEUTROPHILS ABSOLUTE COUNT (BEAKER) (test tjji=579) 2.17 K/ L 1.80-8.00 LYMPHOCYTES ABSOLUTE COUNT (BEAKER) (test julr=675) 0.47 K/ L 1.48-4.50 MONOCYTES ABSOLUTE COUNT (BEAKER) (test aqxe=491) 0.57 K/ L 0.00-1.30 EOSINOPHILS ABSOLUTE COUNT (BEAKER) (test efze=467) 0.22 K/ L 0.00-0.50 BASOPHILS ABSOLUTE COUNT (BEAKER) (test gdwl=331) 0.01 K/ L 0.00-0.20 0.00LIPID [id number] 07:02:00* Test Item Value Reference Range Comments TRIGLYCERIDES (BEAKER) (test vqlh=789) 143 mg/dL CHOLESTEROL (BEAKER) (test fabq=745) 177 mg/dL HDL CHOLESTEROL (BEAKER) (test mgnf=370) 49 mg/dL LDL CHOLESTEROL CALCULATED (BEAKER) (test afqn=531) 99 mg/dL Triglyceride Reference Range: Low Risk <150 Borderline 150-199 High Risk 200-499 Very High Risk >=500Cholesterol Reference Range: Low Risk <200 Borderline 200-239 High Risk >240HDL Cholesterol Reference Range: Low Risk >=60 High Risk <40LDL Cholesterol Reference Range: Optimal <100 Near Optimal 100-129 Borderline 130-159 High 160-189 Very High >=190 BASIC METABOLIC [id number] 07:02:00* Test Item Value Reference Range Comments SODIUM (BEAKER) (test kjxc=940) 132 meq/L 136-145 POTASSIUM (BEAKER) (test find=150) 4.9 meq/L 3.5-5.1 CHLORIDE (BEAKER) (test mfix=673) 103 meq/L 98-107 CO2 (BEAKER) (test djfz=715) 20 meq/L 22-29 BLOOD UREA NITROGEN (BEAKER) (test mqqy=758) 18 mg/dL 7-21 CREATININE (BEAKER) (test gmty=620) 1.40 mg/dL 0.57-1.25 GLUCOSE RANDOM (BEAKER) (test uxpu=141) 103 mg/dL 70-105 CALCIUM (BEAKER) (test sxkt=720) 8.6 mg/dL 8.4-10.2 EGFR (BEAKER) (test iawl=1536) 38 mL/min/1.73 sq m ESTIMATED GFR IS NOT ACCURATE CREATININE CLEARANCE IN PREDICTING GLOMERULAR FILTRATION RATE. ESTIMATED GFR IS NOT APPLICABLE FOR DIALYSIS PATIENTS. HEPATIC FUNCTION [id number] 21:10:00* Test Item Value Reference Range Comments TOTAL PROTEIN (BEAKER) (test odfr=626) 7.8 gm/dL 6.0-8.3 Specimen slightly hemolyzed ALBUMIN (BEAKER) (test olnz=7840) 4.3 g/dL 3.5-5.0 Specimen slightly hemolyzed BILIRUBIN TOTAL (BEAKER) (test szpc=616) 0.7 mg/dL 0.2-1.2 Specimen slightly hemolyzed BILIRUBIN DIRECT (BEAKER) (test grut=208) 0.2 mg/dL 0.1-0.5 Specimen slightly hemolyzed ALKALINE PHOSPHATASE (BEAKER) (test wsps=802) 148 U/L 40-150 AST (SGOT) (BEAKER) (test gsps=035) 24 U/L 5-34 Specimen slightly hemolyzed ALT (SGPT) (BEAKER) (test gaxi=556) 17 U/L 6-55 Specimen slightly hemolyzed PROTHROMBIN [id number] 21:08:00* Test Item Value Reference Range Comments PROTIME (BEAKER) (test efmj=949) 13.0 seconds 11.7-14.7 INR (BEAKER) (test cfxo=838) 1.0 <=5.9 RECOMMENDED COUMADIN/WARFARIN INR THERAPY RANGESSTANDARD DOSE: 2.0 - 3.0 Inclu eduar: PROPHYLAXIS for venous thrombosis, systemic embolization; TREATMENT for ania ous thrombosis and/or pulmonary embolus.HIGH RISK: Target INR is 2.5-3.5 for pat ients with mechanical heart valves.BASIC METABOLIC [id number] 16:26:00* Test Item Value Reference Range Comments SODIUM (BEAKER) (test uwgc=468) 130 meq/L 136-145 POTASSIUM (BEAKER) (test ndue=275) 5.5 meq/L 3.5-5.1 Specimen slightly hemolyzed CHLORIDE (BEAKER) (test nnxx=457) 103 meq/L 98-107 CO2 (BEAKER) (test rijv=555) 19 meq/L 22-29 BLOOD UREA NITROGEN (BEAKER) (test yeyl=013) 18 mg/dL 7-21 CREATININE (BEAKER) (test tuqk=237) 1.34 mg/dL 0.57-1.25 Specimen slightly hemolyzed GLUCOSE RANDOM (BEAKER) (test oyfn=238) 103 mg/dL 70-105 CALCIUM (BEAKER) (test pjde=575) 9.1 mg/dL 8.4-10.2 EGFR (BEAKER) (test geam=4664) 39 mL/min/1.73 sq m ESTIMATED GFR IS NOT ACCURATE CREATININE CLEARANCE IN PREDICTING GLOMERULAR FILTRATION RATE. ESTIMATED GFR IS NOT APPLICABLE FOR DIALYSIS PATIENTS. CBC W/PLT COUNT & AUTO [id number] 16:19:00* Test Item Value Reference Range Comments WHITE BLOOD CELL COUNT (BEAKER) (test ycxf=334) 5.4 K/ L 4.0-10.0 RED BLOOD CELL COUNT (BEAKER) (test dsgn=997) 4.03 M/ L 4.00-5.00 HEMOGLOBIN (BEAKER) (test jcqj=983) 11.9 GM/DL 12.0-15.0 HEMATOCRIT (BEAKER) (test wnqg=686) 35.8 % 36.0-45.0 MEAN CORPUSCULAR VOLUME (BEAKER) (test twqw=369) 88.8 fL 82.0-99.0 MEAN CORPUSCULAR HEMOGLOBIN (BEAKER) (test xdqp=444) 29.6 pg 27.0-33.0 MEAN CORPUSCULAR HEMOGLOBIN CONC (BEAKER) (test vxri=926) 33.3 GM/DL 32.0-36.0 RED CELL DISTRIBUTION WIDTH (BEAKER) (test lyqz=395) 13.2 % 10.3-14.2 PLATELET COUNT (BEAKER) (test hrmp=492) 172 K/CU MM 150-430 MEAN PLATELET VOLUME (BEAKER) (test xrwe=777) 7.4 fL 6.5-10.5 NUCLEATED RED BLOOD CELLS (BEAKER) (test niji=495) 0 /100 WBC 0-0 NEUTROPHILS RELATIVE PERCENT (BEAKER) (test csnh=648) 72 % LYMPHOCYTES RELATIVE PERCENT (BEAKER) (test edub=010) 9 % MONOCYTES RELATIVE PERCENT (BEAKER) (test rnis=150) 14 % EOSINOPHILS RELATIVE PERCENT (BEAKER) (test dpnk=470) 5 % BASOPHILS RELATIVE PERCENT (BEAKER) (test xoin=590) 0 % NEUTROPHILS ABSOLUTE COUNT (BEAKER) (test qdfd=815) 3.90 K/ L 1.80-8.00 LYMPHOCYTES ABSOLUTE COUNT (BEAKER) (test rwyp=103) 0.48 K/ L 1.48-4.50 MONOCYTES ABSOLUTE COUNT (BEAKER) (test wtxg=982) 0.73 K/ L 0.00-1.30 EOSINOPHILS ABSOLUTE COUNT (BEAKER) (test kvmc=552) 0.27 K/ L 0.00-0.50 BASOPHILS ABSOLUTE COUNT (BEAKER) (test eiea=225) 0.02 K/ L 0.00-0.20 TACROLIMUS [id number] 12:31:00* Test Item Value Reference Range Comments TACROLIMUS BLOOD (BEAKER) (test wegl=121) 7.1 ng/mL 10.0-20.0 [id number] 09:47:00* Test Item Value Reference Range Comments MAGNESIUM (BEAKER) (test udxs=068) 2.3 mg/dL 1.6-2.6 COMPREHENSIVE METABOLIC [id number] 09:47:00* Test Item Value Reference Range Comments TOTAL PROTEIN (BEAKER) (test pblh=672) 7.4 gm/dL 6.0-8.3 ALBUMIN (BEAKER) (test wdhp=6291) 4.3 g/dL 3.5-5.0 ALKALINE PHOSPHATASE (BEAKER) (test anae=702) 135 U/L 40-150 BILIRUBIN TOTAL (BEAKER) (test trax=547) 0.8 mg/dL 0.2-1.2 SODIUM (BEAKER) (test lxpb=506) 137 meq/L 136-145 POTASSIUM (BEAKER) (test pdtr=715) 5.0 meq/L 3.5-5.1 CHLORIDE (BEAKER) (test gxsi=935) 107 meq/L 98-107 CO2 (BEAKER) (test ppcw=616) 20 meq/L 22-29 BLOOD UREA NITROGEN (BEAKER) (test qkkf=743) 18 mg/dL 7-21 CREATININE (BEAKER) (test hwmj=472) 1.39 mg/dL 0.57-1.25 GLUCOSE RANDOM (BEAKER) (test tiyd=987) 95 mg/dL 70-105 CALCIUM (BEAKER) (test cvho=340) 9.3 mg/dL 8.4-10.2 AST (SGOT) (BEAKER) (test ivfq=376) 21 U/L 5-34 ALT (SGPT) (BEAKER) (test mvbk=470) 15 U/L 6-55 EGFR (BEAKER) (test lscr=6827) 38 mL/min/1.73 sq m ESTIMATED GFR IS NOT ACCURATE CREATININE CLEARANCE IN PREDICTING GLOMERULAR FILTRATION RATE. ESTIMATED GFR IS NOT APPLICABLE FOR DIALYSIS PATIENTS. BILIRUBIN, [id number] 09:47:00* Test Item Value Reference Range Comments BILIRUBIN DIRECT (BEAKER) (test jsow=824) 0.3 mg/dL 0.1-0.5 CBC W/PLT COUNT & AUTO [id number] 09:23:00* Test Item Value Reference Range Comments WHITE BLOOD CELL COUNT (BEAKER) (test edmy=199) 3.5 K/ L 4.0-10.0 RED BLOOD CELL COUNT (BEAKER) (test iorh=890) 4.16 M/ L 4.00-5.00 HEMOGLOBIN (BEAKER) (test pyqw=477) 12.0 GM/DL 12.0-15.0 HEMATOCRIT (BEAKER) (test phre=076) 38.6 % 36.0-45.0 MEAN CORPUSCULAR VOLUME (BEAKER) (test gbvu=523) 92.8 fL 82.0-99.0 MEAN CORPUSCULAR HEMOGLOBIN (BEAKER) (test czui=510) 28.7 pg 27.0-33.0 MEAN CORPUSCULAR HEMOGLOBIN CONC (BEAKER) (test hrvs=187) 31.0 GM/DL 32.0-36.0 RED CELL DISTRIBUTION WIDTH (BEAKER) (test fiqs=009) 13.2 % 10.3-14.2 PLATELET COUNT (BEAKER) (test nsia=320) 179 K/CU MM 150-430 MEAN PLATELET VOLUME (BEAKER) (test nkdn=900) 7.5 fL 6.5-10.5 NUCLEATED RED BLOOD CELLS (BEAKER) (test tfwp=471) 0 /100 WBC 0-0 NEUTROPHILS RELATIVE PERCENT (BEAKER) (test wtzy=098) 62 % LYMPHOCYTES RELATIVE PERCENT (BEAKER) (test uitv=686) 17 % MONOCYTES RELATIVE PERCENT (BEAKER) (test evpc=849) 14 % EOSINOPHILS RELATIVE PERCENT (BEAKER) (test xmbw=981) 6 % BASOPHILS RELATIVE PERCENT (BEAKER) (test bugr=783) 1 % NEUTROPHILS ABSOLUTE COUNT (BEAKER) (test ldki=304) 2.20 K/ L 1.80-8.00 LYMPHOCYTES ABSOLUTE COUNT (BEAKER) (test qgcr=856) 0.61 K/ L 1.48-4.50 MONOCYTES ABSOLUTE COUNT (BEAKER) (test bces=510) 0.50 K/ L 0.00-1.30 EOSINOPHILS ABSOLUTE COUNT (BEAKER) (test coks=259) 0.21 K/ L 0.00-0.50 BASOPHILS ABSOLUTE COUNT (BEAKER) (test xiua=783) 0.02 K/ L 0.00-0.20 0.00
--- NOTE | 2019-04-03 08:51 | NUR ---
WARM BLANKETS TO PT FOR COMFORT.
--- NOTE | 2019-04-03 09:41 | NUR ---
SU HARDING in room for suture of lac to right side of face.
[2019-04-03] MEDS ORDERED: LIDOCAINE HCL 1% LOCAL INJ 20 ML VIAL INJ NR (09:45)
--- NOTE | 2019-04-03 09:49 | Diagnostic Imaging Report ---
EXAMINATION: Head and cervical spine CT without contrast. HISTORY: Status post fall, headache, pain COMPARISON: None. TECHNIQUE: Multidetector axial images were obtained without contrast from the foramen magnum to the vertex and through the cervical spine. The images were reconstructed using brain and bone algorithms. Thin section brain images were reformatted into coronal and sagittal planes. Dose modulation, iterative reconstruction, and/or weight based adjustment of the mA/kV was utilized to reduce the radiation dose to as low as reasonably achievable. HEAD CT FINDINGS: Skull/scalp: No lytic or blastic lesions. No fractures. Parenchyma: Scattered and moderate confluent periventricular and sexton radiata white matter hypodensities, most likely nonspecific chronic microvascular ischemic changes. No mass, hemorrhage or CT evidence of acute vascular insult. Brain volume: Normal for age. Ventricles: No hydrocephalus or displacement. Arteries: No density suggestive of thrombus. Dural sinuses: No abnormal density. Extra-axial spaces: No abnormal density. Foramen magnum: No mass, Chiari malformation, or basilar invagination. Sella: No obvious mass. Paranasal/mastoid sinuses: Imaged portions unremarkable. CERVICAL SPINE CT FINDINGS: Alignment:Normal alignment and lordosis. Soft tissues: Normal. Vertebrae: Normal height and density. No acute fracture, infection or neoplasm. Degenerative changes: C1-C2: Normal C2-C3: Normal C3-C4: Mild facet arthrosis without stenosis C4-C5: Mild atherosclerosis without stenosis C5-C6: Disc osteophyte complex formation, bilateral uncovertebral arthrosis. No significant stenoses. C6-C7: Normal C7-T1: Normal IMPRESSION: Head CT: 1. No acute postraumatic intracranial hemorrhage. 2. Moderate chronic microvascular ischemic changes Cervical spine CT: 1. No acute fractures or dislocations. 2. Mild chronic degenerative changes as described. Note: Acute post traumatic spinal cord, vascular or ligamentous injury cannot adequately be assessed with CT. Signed by: Dr. Negar Gentile M.D. on 04/03/2019 9:46 AM
--- NOTE | 2019-04-03 10:13 | Diagnostic Imaging Report ---
EXAM: CT Pelvis WITHOUT intravenous contrast INDICATION: Trauma COMPARISON: None. TECHNIQUE: Pelvis was scanned utilizing a multidetector helical scanner from the iliac crest to the pubic symphysis without administration of IV contrast. Coronal and sagittal reformations were obtained. Routine protocol was performed. IV CONTRAST: None ORAL CONTRAST: None RADIATION DOSE: Total DLP: 317.1 mGy*cm COMPLICATIONS: None FINDINGS: LINES and TUBES: None. GI TRACT: No abnormal distention, wall thickening, or evidence of bowel obstruction. PELVIC ORGANS/BLADDER: Unremarkable. LYMPH NODES: No lymphadenopathy. VESSELS: Atherosclerotic calcifications of the nonaneurysmal distal abdominal aorta and major branches. PERITONEUM / RETROPERITONEUM: No free air or fluid. BONES: No acute osseous injury. Degenerative changes of the lower lumbar spine. SOFT TISSUES: Unremarkable. IMPRESSION: No evidence of acute traumatic injury to the pelvis. Signed by: Jabari Maria MD on 04/03/2019 10:10 AM
== END 2019-04-03 11:24 | disposition home or self-care (01) ==
LOC: ER 08:32
DX: S01.111A Laceration without foreign body of right eyelid and periocular area, initial encounter (principal); S80.01XA Contusion of right knee, initial encounter; S51.801A Unspecified open wound of right forearm, initial encounter; W01.0XXA Fall on same level from slipping, tripping and stumbling without subsequent striking against object, initial encounter; Y92.009 Unspecified place in unspecified non-institutional (private) residence as the place of occurrence of the external cause
CPT/HCPCS: 70450; 72125; 72192; 99284

== ENCOUNTER 2019-05-10 02:05 | Emergency (ER) | payer MEDICARE, OTHER ==
[~2019-05-10] VITALS: Ht 165.1 cm; Wt 79.8 kg
[2019-05-10] MEDS ORDERED: PANTOPRAZOLE 40 MG 10ML VIAL IV STA (02:38)
[2019-05-10] MEDS ORDERED: SODIUM CHLORIDE 0.9% 1000ML 1,000 ML IV STA (02:38)
[2019-05-10] MEDS ORDERED: PANTOPRAZOLE 40 MG 10ML VIAL ONE (03:01)
--- NOTE | 2019-05-10 03:30 | Diagnostic Imaging Report ---
EXAMINATION: CHEST SINGLE (PORTABLE) INDICATION: Weakness. COMPARISON: Chest radiograph 11/02/2013. FINDINGS: TUBES and LINES: None. LUNGS: Low lung volumes on the right. Calcified left lower lung granuloma. Patchy left retrocardiac opacity. There is focal opacity in the right midlung at the location of overlying rib. No evidence of pulmonary edema. PLEURA: No pleural effusion or pneumothorax. HEART AND MEDIASTINUM: The cardiomediastinal silhouette is unremarkable. There are atherosclerotic calcifications within the aorta. BONES AND SOFT TISSUES: No acute osseous lesion. Soft tissues are unremarkable. UPPER ABDOMEN: No free air under the diaphragm. A radiodensity overlies the GE junction, which may be postsurgical. IMPRESSION: Patchy left retrocardiac opacity, which may reflect atelectasis or aspiration in the appropriate clinical setting. Focal opacity in the right midlung may represent superimposition of rib and vascular structure in the setting of low lung volumes. However underlying a pulmonary nodule is not excluded. Recommend either follow-up chest radiograph in 6-[address] Signed by: Dr. Deuce Jennings MD on 05/10/2019 3:27 AM
[2019-05-10 03:37] LABS: BASOPHILS % 0.8 % (0.0-1.0); EOSINOPHILS # (AUTO) 0.3 (0.0-0.4); EOSINOPHILS % 6.4 % (0.0-6.0); HEMATOCRIT 38.1 % (34.2-44.1); HEMOGLOBIN 12.7 g/dL (12.0-16.0); LYMPHOCYTES # (AUTO) 0.8 (1.0-3.2); LYMPHOCYTES % 16.3 % (18.0-39.1); MEAN CORPUSCULAR HEMOGLOBIN 30.4 pg (28-32); MEAN CORPUSCULAR HGB CONC 33.3 g/dL (31-35); MEAN CORPUSCULAR VOLUME 91.1 fL (81-99); MONOCYTES # (AUTO) 0.6 (0.2-0.8); MONOCYTES % 11.7 % (4.4-11.3); NEUTROPHILS # (AUTO) 3.1 (2.1-6.9); NEUTROPHILS % 64.6 % (38.7-80.0); PLATELET COUNT 176 x10e3/uL (140-360); RED BLOOD COUNT 4.18 x10e6/uL (3.6-5.1); RED CELL DISTRIBUTION WIDTH 13.1 % (11.7-14.4)
[2019-05-10 03:49] LABS: INR 1.15; PROTHROMBIN TIME 15.3 seconds (11.9-14.5)
[2019-05-10 03:50] LABS: PARTIAL THROMBOPLASTIN TIME 39.4 seconds (23.8-35.5)
[2019-05-10 04:01] LABS: BILIRUBIN,URINE NEGATIVE (NEGATIVE); CLARITY,URINE CLEAR (CLEAR); COLOR,URINE YELLOW (YELLOW); KETONES,URINE NEGATIVE (NEGATIVE); LEUKOCYTE ESTERASE ,URINE NEGATIVE (NEGATIVE); NITRITE,URINE NEGATIVE (NEGATIVE); PROTEIN,URINE DIPSTICK NEGATIVE (NEGATIVE); URINE UROBILINOGEN 0.2 mg/dL (0.2 - 1)
[2019-05-10 04:01] LABS: ALANINE AMINOTRANSFERASE 15 IU/L (0-55); ALBUMIN 4.1 g/dL (3.5-5.0); ALBUMIN/GLOBULIN RATIO 1.4 (0.8-2.0); ALKALINE PHOSPHATASE 102 IU/L (40-150); ANION GAP 14.8 mmol/L (8-16); BLOOD UREA NITROGEN 32 mg/dL (7-26); BUN/CREATININE RATIO 25 (6-25); CALCIUM 9.9 mg/dL (8.4-10.2); CARBON DIOXIDE 19 mmol/L (22-29); CHLORIDE 105 mmol/L (98-107); CREATINE KINASE 53 IU/L (29-168); CREATININE, SERUM 1.28 mg/dL (0.57-1.11); EST GLOMERULAR FILTRATION RATE 41 ML/MIN (60-); GLUCOSE 89 mg/dL (74-118); LIPASE 72 U/L (8-78); MAGNESIUM 2.1 MG/DL (1.3-2.1); POTASSIUM 3.8 mmol/L (3.5-5.1); SODIUM 135 mmol/L (136-145)
[2019-05-10 04:44] LABS: BACTERIA,URINE MODERATE /HPF; EPITHELIAL CELLS,URINE MANY /LPF
--- NOTE | 2019-05-10 05:46 | Diagnostic Imaging Report ---
EXAMINATION: CHEST 2 VIEWS INDICATION: Possible pneumonia on chest x-ray. COMPARISON: Chest radiograph 05/10/2019. FINDINGS: TUBES and LINES: None. LUNGS: Improved lung volumes. Calcified left lower lung granuloma. Decreased patchy left retrocardiac opacity with minimal patchy opacity, likely atelectasis. Persistent focal opacity in the right midlung. PLEURA: No pleural effusion or pneumothorax. HEART AND MEDIASTINUM: The cardiomediastinal silhouette is unremarkable. There are atherosclerotic calcifications within the aorta. BONES AND SOFT TISSUES: No acute osseous lesion. Soft tissues are unremarkable. UPPER ABDOMEN: No free air under the diaphragm. A radiodensity overlies the GE junction, which may be postsurgical. IMPRESSION: Improved lung volumes. Decreased patchy left retrocardiac opacity with minimal patchy opacity, likely atelectasis. Persistent focal opacity in the right midlung may represent pulmonary nodule or superimposition of structures. Follow-up chest CT is suggested for further evaluation. Signed by: Dr. Deuce Jennings MD on 05/10/2019 5:42 AM
== END 2019-05-10 06:21 | disposition home or self-care (01) ==
LOC: ER 02:05
DX: R11.0 Nausea (principal); N30.91 Cystitis, unspecified with hematuria; N18.9 Chronic kidney disease, unspecified; I10 Essential (primary) hypertension; J44.9 Chronic obstructive pulmonary disease, unspecified; K75.81 Nonalcoholic steatohepatitis (NASH); F41.9 Anxiety disorder, unspecified; F32.9 Major depressive disorder, single episode, unspecified
CPT/HCPCS: 36415; 71045; 71046; 80053; 81001; 82270; 82550; 82553; 83690; 83735; 84484; 85025; 85610; 85730; 86850; 86900; 87086; 93005; 99284; C9113; J7030

== ENCOUNTER → 2020-03-30 | Outpatient (RCR) | payer MEDICARE, OTHER | LOC: RESP 15:38 | PROVIDERS: ATTEND Family Medicine | DX: J44.9 Chronic obstructive pulmonary disease, unspecified (principal) ==

== ENCOUNTER 2020-04-27 09:59 | Outpatient (RCR) | payer MEDICARE, OTHER | END 2020-04-30 | LOC: RESP 09:59 | PROVIDERS: ATTEND Internal Medicine | DX: J44.9 Chronic obstructive pulmonary disease, unspecified (principal) | CPT/HCPCS: G0238 ×5; G0424 ×5 ==

== ENCOUNTER 2020-05-25 09:44 | Outpatient (RCR) | payer MEDICARE, OTHER | END 2020-05-30 | LOC: RESP 09:44 | PROVIDERS: ATTEND Internal Medicine | DX: J44.9 Chronic obstructive pulmonary disease, unspecified (principal) | CPT/HCPCS: G0238 ×6; G0424 ×6 ==

== ENCOUNTER 2020-06-29 10:00 | Outpatient (RCR) | payer MEDICARE, OTHER | END 2020-06-30 | LOC: RESP 10:00 | PROVIDERS: ATTEND Family Medicine | DX: J44.9 Chronic obstructive pulmonary disease, unspecified (principal) | CPT/HCPCS: G0238 ×8; G0424 ×8 ==

== ENCOUNTER 2020-07-04 09:52 | Outpatient (RCR) | payer MEDICARE, OTHER | END 2020-07-31 | LOC: RESP 09:52 | PROVIDERS: ATTEND Internal Medicine | DX: J44.9 Chronic obstructive pulmonary disease, unspecified (principal) | CPT/HCPCS: G0238 ×4; G0424 ×4 ==

== ENCOUNTER 2021-05-12 19:10 | Emergency (ER) | payer MEDICARE, OTHER ==
[~2021-05-12] VITALS: Ht 165.1 cm; Wt 79.8 kg
[2021-05-12] MEDS ORDERED: DEXAMETHASONE SOD PHOS 10 MG/1 ML VIAL IM ONE ×2 (20:00)
[2021-05-12 21:03] VITALS: BP 136/74
== END 2021-05-12 21:21 | disposition home or self-care (01) ==
LOC: ER 19:32
DX: J44.1 Chronic obstructive pulmonary disease with (acute) exacerbation (principal); Z86.16 Personal history of COVID-19; I10 Essential (primary) hypertension; Z88.6 Allergy status to analgesic agent; Z86.711 Personal history of pulmonary embolism; Z86.718 Personal history of other venous thrombosis and embolism; Z87.891 Personal history of nicotine dependence
CPT/HCPCS: 71045; 99283; J1100

== ENCOUNTER 2021-05-26 17:52 | Emergency (ER) | payer MEDICARE, OTHER ==
[~2021-05-26] VITALS: Ht 165.1 cm; Wt 79.8 kg
[2021-05-26 18:51] LABS: CLARITY,URINE SL CLOUDY (CLEAR); COLOR,URINE YELLOW (YELLOW); KETONES,URINE TRACE (NEGATIVE); LEUKOCYTE ESTERASE ,URINE NEGATIVE (NEGATIVE); NITRITE,URINE NEGATIVE (NEGATIVE); PROTEIN,URINE DIPSTICK NEGATIVE (NEGATIVE); URINE UROBILINOGEN 0.2 mg/dL (0.2 - 1)
[2021-05-26 18:53] LABS: AMORPHOUS SEDIMENT,URINE MODERATE (FEW); BACTERIA,URINE MODERATE /HPF; EPITHELIAL CELLS,URINE FEW /LPF; RBC,URINE 0-5 /HPF (0-5); WBC,URINE (MAN) 0-5 /HPF (0-5)
[2021-05-26] MEDS ORDERED: CIPROFLOXACIN 500 MG TAB PO STA (18:56)
[2021-05-26] MEDS ORDERED: CIPRO500 MG PO (19:04)
[2021-05-26] MEDS ORDERED: PYRIDIUM100 MG PO (19:04)
[2021-05-26] MEDS ORDERED: CIPROFLOXACIN 500 MG TAB ONE (19:11)
== END 2021-05-26 19:11 | disposition home or self-care (01) ==
LOC: ER 18:00
DX: N39.0 Urinary tract infection, site not specified (principal); I10 Essential (primary) hypertension; J44.9 Chronic obstructive pulmonary disease, unspecified; E03.9 Hypothyroidism, unspecified; F41.9 Anxiety disorder, unspecified; Z94.4 Liver transplant status; Z86.718 Personal history of other venous thrombosis and embolism
CPT/HCPCS: 81001; 99283